=== PATIENT | female | born 1955 | race Caucasian/White ===

== ENCOUNTER 2016-10-31 10:33 | Emergency (ER) | payer OTHER ==
[~2016-10-31] VITALS: Ht 157.5 cm; Wt 63.5 kg
[~2016-10-31 10:33] MED LIST: ACIPHEX20 M1 PO; ASPI-COR81 M1 PO; ASPIRIN81 M1 PO; ASPIRIN81 M2 PO; BLEPHAMIDE OP; CLINDAMYCIN300 M1 PO; CLONIDINE0.1 MG PO; COLACE100 M1 PO; COLACE100 MG PO; CONCOR; ENALAPRIL MALEA10 M1 PO; ERYTHROMYCIN S PO; FAMOTIDINE40 MG/5 ML PO; GABAPENTIN300 M1 PO; GLUCOPHAGE1000 MG PO; GLUCOPHAGE500 MG PO; GLUCOTROL10 MG PO; GLUCOTROL5 MG PO; GLYBURIDE PO; HYDROCODONE BIT1 T55 PO; LACTINEX1 TAB.CHEW PO; LANTUS INS100 UNITS/ SUBQ; LANTUS100 U/ML; LIPITOR10 MG PO; LIPITOR20 MG PO; LISINOPRIL10 M1 PO; LOSARTAN POTASS1 TA2 PO; MACROBID100 M1 PO; METFO PO; METFORMIN500 MG; NORCO 325 MG-51 TAB PO; NORCO 5/325 MG1 TAB PO; NORVASC2.5 MG PO; NOVOLOG100 U/ML; NOVOLOG100 U/ML SUBQ; PAIN PO; PEPCID20 MG PO; PHENERGAN25 M3 PO; PROTONIX40 MG PO; RANITIDINE150 MG PO; REGLAN10 MG PO; SIMVASTATIN20 M1 PO; SODIUM CHLORIDE1 G2 PO; ZANTAC150 MG PO; ZESTRIL20 MG PO; ZOCOR20 MG PO; ZOCOR80 MG PO; ZOFRAN ODT4 MG PO; ZOFRAN4 M1 PO; [UNRECOGNIZED DRUG - OTHER] PO; xarelto PO
--- NOTE | 2016-10-31 10:36 | NUR ---
PT WHEELCHAIR ASSISTED TO BED 3 AT THIS TIME.
[2016-10-31 10:38] VITALS: BP 175/75
--- NOTE | 2016-10-31 10:38 | NUR ---
61F BIB C/O TAKING THE WRONG INSULIN MEDICATION AT 0930 TODAY; PT STATES ACCIDENTLY GAVE HERSELF 14 UNITS OF NOVOLIN, INSTEAD OF 14 UNITES OF LANTUS; PT STATES PRESCRIBED TO TAKE 6 UNITS OF NOVOLIN. PT STATES ACCIDENTLY SWITCHED THE BOTTLES; PT TOOK 1 CAN OF COKE PRIOR TO ARRIVAL; A&OX4, BL LUNG SOUNDS CLEAR, RR EVEN/UNLABORED; PT C/O OF 1 EPISODE OF DIARRHEA PRIOR TO ARRIVAL; ABDOMEN SOFT, NON-TENDER, ACTIVE BOWEL SOUNDS X 4 QUADRANTS; SKIN IS WARM/DRY/INTACT AT THIS TIME. PT PLACED IN GOWN & ON MONITOR, RESTING IN BED W/ HOB ELEVATED AND IN LOWEST POSITION; POSITIONED FOR COMFORT; ER MD MADE AWARE OF STATUS. WILL CONTINUE TO MONITOR.
[2016-10-31] MEDS ORDERED: NACL 0.9% 1,000 ML IV SCH (10:46)
[2016-10-31] MEDS ORDERED: ONDANSETRON 4 MG/2 ML VIAL IVP ONE (10:50)
--- NOTE | 2016-10-31 11:33 | NUR ---
WARM BLANKET PROVIDED TO PT FOR COMFOT.
--- NOTE | 2016-10-31 12:35 | NUR ---
PT AMBULATED TO THE RESTROOM AT THIS TIME.
--- NOTE | 2016-10-31 13:26 | NUR ---
Patient appears to be resting comfortably in bed. Vital Signs within normal limits. Respirations even and unlabored. FAMILY AT BEDSIDE. WILL CONTINUE TO MONITOR.
--- NOTE | 2016-10-31 13:35 | NUR ---
APPLE JUICE PROVIDED TO PT PER PT'S REQUEST; ER MD DR. COOK NOTIFIED; WILL CONTINUE TO MONITOR.
[2016-10-31] MEDS ORDERED: cefTRIAXone 1,000 MG VIAL ONE (15:50)
--- NOTE | 2016-10-31 16:40 | NUR ---
IV removed, catheter intact and site benign. Applied folded 4x4 gauze and tape to stop bleeding. PT TOLERATED PROCEDURE WELL.
[2016-10-31 16:45] VITALS: BP 160/78
--- NOTE | 2016-10-31 16:45 | NUR ---
Patient discharged with BP 160/78; PT STATES HX HTN, TAKES MEDICATION; DENIES HEADACHE OR BLURRY VISION AT THIS TIME; ER MD DR. COOK NOTIFED. Written and verbal after care instructions given and explained.Patient verbalized understanding. Wheel Chair Assisted with to car. All questions addressed prior to discharge. Advised to follow up with PMD.
[2017-04-13] MEDS ORDERED: LANTUS INS100 UNITS/ SUBQ (08:57)
[2017-04-13] MEDS ORDERED: MACROBID100 M1 PO (08:57)
[2017-04-13] MEDS ORDERED: IPRATROPIUM BROM3 M1 IH (08:57)
[2017-04-13] MEDS ORDERED: BLOOD GLUCOSE1 EACH FS (08:57)
[2017-04-13] MEDS ORDERED: ATORVASTATIN CA20 MG PO (08:57)
[2017-04-13] MEDS ORDERED: LOPRESSOR25 MG PO (08:57)
[2017-04-13] MEDS ORDERED: FLORASTOR250 MG PO (08:57)
[2017-04-13] MEDS ORDERED: ASPIRIN ADULT L81 M2 PO (08:57)
[2017-04-13] MEDS ORDERED: HUMALOG SL100 UNITS/ SUBQ (08:57)
[2017-04-13] MEDS ORDERED: PANTOPRAZOLE SO40 MG PO (08:57)
[2017-04-13] MEDS ORDERED: ZOFRAN4 M1 PO (14:34)
== END 2016-10-31 16:45 | disposition home or self-care (01) ==
LOC: MED 10:33
DX: T38.3X1A Poisoning by insulin and oral hypoglycemic [antidiabetic] drugs, accidental (unintentional), initial encounter (principal); E11.649 Type 2 diabetes mellitus with hypoglycemia without coma; N39.0 Urinary tract infection, site not specified; I10 Essential (primary) hypertension; J45.909 Unspecified asthma, uncomplicated; E78.00 Pure hypercholesterolemia, unspecified; Z88.5 Allergy status to narcotic agent; Z88.0 Allergy status to penicillin; Z91.013 Allergy to seafood; Z91.018 Allergy to other foods; Z88.1 Allergy status to other antibiotic agents; Z79.4 Long term (current) use of insulin; Y92.89 Other specified places as the place of occurrence of the external cause; Z79.899 Other long term (current) drug therapy
CPT/HCPCS: 36415; 80053; 81001; 82948; 85025; 87086; 87186; 93005; 96361; 96365; 96375; 99285; J0696; J2405; J7030

== ENCOUNTER 2017-04-11 01:50 | Inpatient (IN) | payer OTHER ==
[~2017-04-11] VITALS: Ht 160 cm; Wt 73.0 kg
[~2017-04-11 01:50] MED LIST changes: -ACIPHEX20 M1 PO; +AMLO2.5T PO; -ASPI-COR81 M1 PO; -ASPIRIN81 M1 PO; -ASPIRIN81 M2 PO; +ATOR10TA PO; -BLEPHAMIDE OP; -CLINDAMYCIN300 M1 PO; -CLONIDINE0.1 MG PO; -COLACE100 M1 PO; -COLACE100 MG PO; -CONCOR; -ENALAPRIL MALEA10 M1 PO; -ERYTHROMYCIN S PO; +FAMO-90 PO; -FAMOTIDINE40 MG/5 ML PO; -GABAPENTIN300 M1 PO; +GLIP10TA3 PO; -GLUCOPHAGE1000 MG PO; -GLUCOPHAGE500 MG PO; -GLUCOTROL10 MG PO; -GLUCOTROL5 MG PO; -GLYBURIDE PO; -HYDROCODONE BIT1 T55 PO; +LAC PO; -LACTINEX1 TAB.CHEW PO; -LANTUS INS100 UNITS/ SUBQ; +LANTUS SUBQ; -LANTUS100 U/ML; -LIPITOR10 MG PO; -LIPITOR20 MG PO; +LISI-420 PO; -LISINOPRIL10 M1 PO; -LOSARTAN POTASS1 TA2 PO; -MACROBID100 M1 PO; +METF1000 PO; -METFO PO; -METFORMIN500 MG; +NITR100C7 PO; -NORCO 325 MG-51 TAB PO; -NORCO 5/325 MG1 TAB PO; -NORVASC2.5 MG PO; -NOVOLOG100 U/ML; -NOVOLOG100 U/ML SUBQ; -PAIN PO; -PEPCID20 MG PO; -PHENERGAN25 M3 PO; -PROTONIX40 MG PO; -RANITIDINE150 MG PO; -REGLAN10 MG PO; -SIMVASTATIN20 M1 PO; -SODIUM CHLORIDE1 G2 PO; -ZANTAC150 MG PO; -ZESTRIL20 MG PO; -ZOCOR20 MG PO; -ZOCOR80 MG PO; -ZOFRAN ODT4 MG PO; -ZOFRAN4 M1 PO; -[UNRECOGNIZED DRUG - OTHER] PO; -xarelto PO
[2017-04-11 01:53] VITALS: BP 147/77
[2017-04-11 03:10] LABS: BASOPHILS # (AUTO) 0.1 K/uL (0.00-0.22); BASOPHILS % (AUTO) 0.7 % (0.0-2.0); EOSINOPHILS # (AUTO) 0.4 K/uL (0-0.4); EOSINOPHILS % (AUTO) 3.1 % (0.0-4.0); HEMATOCRIT 32.5 % (36-48); HEMOGLOBIN 10.1 g/dL (12.0-16.0); LYMPHOCYTES # (AUTO) 2.3 K/uL (2.5-16.5); LYMPHOCYTES % (AUTO) 20.2 % (20.5-51.1); MEAN CORPUSCULAR HEMOGLOBIN 25 pg (27-31); MEAN CORPUSCULAR HGB CONC 31 g/dL (33-37); MEAN CORPUSCULAR VOLUME 79 fL (80-94); MONOCYTES % (AUTO) 8.5 % (1.7-9.3); NEUTROPHILS # (AUTO) 7.6 K/uL (1.8-7.7); NEUTROPHILS % (AUTO) 67.5 % (42.2-75.2); PLATELET COUNT (AUTO) 411 K/uL (140-450); RED BLOOD CELL COUNT(AUTO) 4.11 MIL/uL (4.20-5.40); RED CELL DISTRIBUTION WIDTH 14.4 % (11.6-13.7); WHITE BLOOD COUNT (AUTO) 11.4 K/uL (4.8-10.8)
[2017-04-11 03:24] LABS: ALBUMIN 3.2 g/dL (3.4-5.0); ANION GAP 12.2 (8-16); CALCIUM 8.7 mg/dL (8.5-10.1); CARBON DIOXIDE 26.4 mmol/L (21-32); CREATININE 1.2 mg/dL (0.6-1.3); POTASSIUM 4.6 mmol/L (3.5-5.1); TOTAL BILIRUBIN 0.2 mg/dL (0.0-1.0); TOTAL PROTEIN, SERUM 7.8 g/dL (6.4-8.2)
[2017-04-11 03:28] LABS: INR 0.9 (0.8-1.2); PARTIAL THROMBOPLASTIN TIME 26.6 secs (22-35.6); PROTHROMBIN TIME 9.3 secs (10.8-13.4)
[2017-04-11] MEDS ORDERED: ACETAMINOPHEN 325 MG TAB PO PRN (04:30)
[2017-04-11] MEDS ORDERED: HYDROcodone/APAP 7.5/325 MG 1 TAB PO PRN (04:30)
[2017-04-11] MEDS ORDERED: DOCUSATE SODIUM 100 MG GELCAP PO PRN (04:30)
[2017-04-11] MEDS ORDERED: ONDANSETRON 4 MG/2 ML VIAL IM/IVP PRN (04:30)
[2017-04-11 05:01] LABS: APPEARANCE,URINE CLEAR (CLEAR); BILIRUBIN,URINE NEGATIVE (NEGATIVE); BLOOD, URINE TRACE-I (NEGATIVE); COLOR,URINE YELLOW (YELLOW); LEUKOCYTE ESTERASE ,URINE 1+ (NEGATIVE); NITRITE, URINE NEGATIVE (NEGATIVE); PH,URINE 5.5 (5.0-9.0); PROTEIN,URINE 1+ (NEGATIVE); UGLUCOSE 1+ (NEGATIVE); UROBILINOGEN,URINE 0.2 EU/dL (0.2 - 1)
[2017-04-11 05:10] LABS: CHOL/HDL RATIO 2.9 (1-4.5); FREE T4 (FREE THYROXINE) 0.97 ng/dL (0.76-1.46); MAGNESIUM 2.2 mg/dL (1.8-2.4); PHOSPHORUS 3.9 mg/dL (2.5-4.9); THYROID STIMULATING HORMONE 9.99 uIU/mL (0.34-3.74)
[2017-04-11 05:12] LABS: BACTERIA,URINE FEW /HPF (None Seen); SQUAMOUS EPITHELIAL CELL,UR None Seen /LPF (0-3 (FEW))
[2017-04-11] MEDS: NACL 0.9% 1,000 ML IV SCH ×3 (05:50→23:57)
[2017-04-11 08:00] VITALS: BP 132/63
[2017-04-11] MEDS: ATORVASTATIN 20 MG TAB PO SCH (08:12)
[2017-04-11] MEDS: ECOTRIN 81 MG TABEC PO SCH (08:12)
[2017-04-11] MEDS: METOPROLOL 25 MG TAB PO SCH ×2 (08:14→20:42)
[2017-04-11] MEDS ORDERED: DEXTROSE 50% 50 ML SYR IVP PRN (08:55)
[2017-04-11] MEDS ORDERED: METOPROLOL 25 MG TAB PO ONE (09:00)
[2017-04-11] MEDS ORDERED: ALBUTEROL SULFATE/IPRATROPIU 3 ML SOL IH PRN (10:55)
[2017-04-11] MEDS ORDERED: FERRIC GLUCONATE 125 MG in NACL 0.9% 100 ML IV SCH (11:00)
[2017-04-11] MEDS: BLOOD GLUCOSE MONITORING 1 DEV DEV FS SCH ×3 (11:28→20:15)
[2017-04-11] MEDS: INSULIN LISPRO SLIDING SCALE 100 UNITS/ML VIAL SUBQ PRN ×3 (11:32→20:51)
[2017-04-11 12:00] VITALS: BP 140/67
[2017-04-11] MEDS ORDERED: ALBUTEROL SULFATE/IPRATROPIU 3 ML SOL IH SCH (13:00)
[2017-04-11 16:00] VITALS: BP 138/66
[2017-04-11] MEDS: metFORMIN 500 MG TAB PO SCH (17:07)
[2017-04-11 20:00] VITALS: BP 159/68
[2017-04-12] VITALS: BP 112/48
[2017-04-12 04:00] VITALS: BP 136/54
[2017-04-12] MEDS: PANTOPRAZOLE 40 MG TABEC PO SCH (05:47)
[2017-04-12 06:43] LABS: BASOPHILS # (AUTO) 0.1 K/uL (0.00-0.22); EOSINOPHILS # (AUTO) 0.4 K/uL (0-0.4); EOSINOPHILS % (AUTO) 3.9 % (0.0-4.0); HEMATOCRIT 32.8 % (36-48); HEMOGLOBIN 10.3 g/dL (12.0-16.0); LYMPHOCYTES # (AUTO) 2.7 K/uL (2.5-16.5); LYMPHOCYTES % (AUTO) 25.7 % (20.5-51.1); MEAN CORPUSCULAR HEMOGLOBIN 25 pg (27-31); MEAN CORPUSCULAR HGB CONC 31 g/dL (33-37); MEAN CORPUSCULAR VOLUME 79 fL (80-94); MONOCYTES # (AUTO) 0.8 K/uL (0.8-1.0); MONOCYTES % (AUTO) 7.4 % (1.7-9.3); NEUTROPHILS # (AUTO) 6.5 K/uL (1.8-7.7); PLATELET COUNT (AUTO) 439 K/uL (140-450); RED BLOOD CELL COUNT(AUTO) 4.18 MIL/uL (4.20-5.40); RED CELL DISTRIBUTION WIDTH 14.2 % (11.6-13.7); WHITE BLOOD COUNT (AUTO) 10.5 K/uL (4.8-10.8)
[2017-04-12 06:55] LABS: ANION GAP 9.9 (8-16); CALCIUM 8.1 mg/dL (8.5-10.1); CARBON DIOXIDE 26.4 mmol/L (21-32); POTASSIUM 4.3 mmol/L (3.5-5.1)
[2017-04-12] MEDS: BLOOD GLUCOSE MONITORING 1 DEV DEV FS SCH ×4 (07:02→20:38)
[2017-04-12 08:00] VITALS: BP 147/60
[2017-04-12] MEDS: ATORVASTATIN 20 MG TAB PO SCH (08:15)
[2017-04-12] MEDS: LISINOPRIL 20 MG TAB PO SCH (08:16)
[2017-04-12] MEDS: ECOTRIN 81 MG TABEC PO SCH (08:16)
[2017-04-12] MEDS: amLODIPine 5 MG TAB PO SCH (08:16)
[2017-04-12] MEDS: METOPROLOL 25 MG TAB PO SCH ×2 (08:16→20:33)
[2017-04-12] MEDS: metFORMIN 500 MG TAB PO SCH ×2 (08:16→17:11)
[2017-04-12] MEDS: INSULIN DETEMIR 100 UNITS/ML 10 ML VIAL SUBQ SCH (08:24)
[2017-04-12 08:49] LABS: FOLIC ACID 11.6 ng/mL (>3.0)
[2017-04-12] MEDS ORDERED: fentaNYL 0.05 MG/ML VIAL ONE (12:49)
[2017-04-12] MEDS ORDERED: MIDAZOLAM 2 MG/2 ML VIAL ONE (12:50)
[2017-04-12] MEDS ORDERED: diphenhydrAMINE 50 MG/ML VIAL ONE (12:50)
[2017-04-12] MEDS ORDERED: fentaNYL 0.05 MG/ML VIAL IVP ONE (13:35)
[2017-04-12] MEDS ORDERED: MIDAZOLAM 2 MG/2 ML VIAL IVP ONE (13:35)
[2017-04-12 16:00] VITALS: BP 151/67
[2017-04-12] MEDS: INSULIN LISPRO SLIDING SCALE 100 UNITS/ML VIAL SUBQ PRN ×2 (16:35→20:38)
[2017-04-12 20:00] VITALS: BP 152/64
[2017-04-13] VITALS: BP 130/63
[2017-04-13 04:00] VITALS: BP 141/70
[2017-04-13] MEDS: PANTOPRAZOLE 40 MG TABEC PO SCH (05:44)
[2017-04-13] MEDS: NACL 0.9% 1,000 ML IV SCH (06:26)
[2017-04-13] MEDS: BLOOD GLUCOSE MONITORING 1 DEV DEV FS SCH ×2 (06:33→12:08)
[2017-04-13 06:36] LABS: BASOPHILS # (AUTO) 0.1 K/uL (0.00-0.22); BASOPHILS % (AUTO) 1.1 % (0.0-2.0); EOSINOPHILS # (AUTO) 0.3 K/uL (0-0.4); EOSINOPHILS % (AUTO) 2.8 % (0.0-4.0); HEMATOCRIT 31.7 % (36-48); LYMPHOCYTES # (AUTO) 2.3 K/uL (2.5-16.5); LYMPHOCYTES % (AUTO) 21.7 % (20.5-51.1); MEAN CORPUSCULAR HEMOGLOBIN 25 pg (27-31); MEAN CORPUSCULAR HGB CONC 32 g/dL (33-37); MEAN CORPUSCULAR VOLUME 78 fL (80-94); MONOCYTES # (AUTO) 0.6 K/uL (0.8-1.0); MONOCYTES % (AUTO) 6.2 % (1.7-9.3); NEUTROPHILS # (AUTO) 7.2 K/uL (1.8-7.7); NEUTROPHILS % (AUTO) 68.2 % (42.2-75.2); PLATELET COUNT (AUTO) 418 K/uL (140-450); RED BLOOD CELL COUNT(AUTO) 4.05 MIL/uL (4.20-5.40); RED CELL DISTRIBUTION WIDTH 14.1 % (11.6-13.7); WHITE BLOOD COUNT (AUTO) 10.5 K/uL (4.8-10.8)
[2017-04-13 07:23] LABS: ANION GAP 10.9 (8-16); CALCIUM 7.8 mg/dL (8.5-10.1); CARBON DIOXIDE 24.5 mmol/L (21-32); POTASSIUM 4.4 mmol/L (3.5-5.1)
[2017-04-13 07:28] LABS: PHOSPHORUS 4.2 mg/dL (2.5-4.9)
[2017-04-13 08:00] VITALS: BP 150/63
[2017-04-13] MEDS: ATORVASTATIN 20 MG TAB PO SCH (08:34)
[2017-04-13] MEDS: metFORMIN 500 MG TAB PO SCH (08:34)
[2017-04-13] MEDS: amLODIPine 5 MG TAB PO SCH (08:34)
[2017-04-13] MEDS: LISINOPRIL 20 MG TAB PO SCH (08:35)
[2017-04-13] MEDS: ECOTRIN 81 MG TABEC PO SCH (08:35)
[2017-04-13] MEDS: METOPROLOL 25 MG TAB PO SCH (08:36)
[2017-04-13] MEDS: INSULIN DETEMIR 100 UNITS/ML 10 ML VIAL SUBQ SCH (08:49)
[2017-04-13] MEDS ORDERED: LANTUS SUBQ (08:57)
[2017-04-13] MEDS ORDERED: PANT40EC28 PO (08:57)
[2017-04-13] MEDS ORDERED: ASPI81TA28 PO (08:57)
[2017-04-13] MEDS ORDERED: NITR100C7 PO (08:57)
[2017-04-13] MEDS ORDERED: BLOO1STR10 FS (08:57)
[2017-04-13] MEDS ORDERED: IPRA3AMP IH (08:57)
[2017-04-13] MEDS ORDERED: ATOR20TA40 PO (08:57)
[2017-04-13] MEDS ORDERED: SACC250C4 PO (08:57)
[2017-04-13] MEDS ORDERED: HUMSLIDE SUBQ (08:57)
[2017-04-13] MEDS ORDERED: METO25TA PO (08:57)
[2017-04-13 12:00] VITALS: BP 140/62
[2017-04-13] MEDS: INSULIN LISPRO SLIDING SCALE 100 UNITS/ML VIAL SUBQ PRN (12:22)
[2017-04-13] MEDS ORDERED: ONDA4TAB PO (14:34)
== END 2017-04-13 16:00 | disposition home or self-care (01) | DRG 243 ==
LOC: MED 01:50 → MTU 04:30
PROVIDERS: ADMIT Student in an Organized Health Care Education/Training Program; ATTEND Student in an Organized Health Care Education/Training Program
PROC: 0DB98ZX Excision of Duodenum, Via Natural or Artificial Opening Endoscopic, Diagnostic (ICD-10-PCS; principal; 2017-04-12 13:00)
DX: K21.9 Gastro-esophageal reflux disease without esophagitis (principal); N17.0 Acute kidney failure with tubular necrosis; E11.43 Type 2 diabetes mellitus with diabetic autonomic (poly)neuropathy; K31.84 Gastroparesis; E11.65 Type 2 diabetes mellitus with hyperglycemia; D68.59 Other primary thrombophilia; E11.51 Type 2 diabetes mellitus with diabetic peripheral angiopathy without gangrene; M94.0 Chondrocostal junction syndrome [Tietze]; E44.1 Mild protein-calorie malnutrition; I10 Essential (primary) hypertension; N39.0 Urinary tract infection, site not specified; I25.10 Atherosclerotic heart disease of native coronary artery without angina pectoris; E78.5 Hyperlipidemia, unspecified; K59.00 Constipation, unspecified; E66.9 Obesity, unspecified; Z53.29 Procedure and treatment not carried out because of patient's decision for other reasons; D64.9 Anemia, unspecified; E02 Subclinical iodine-deficiency hypothyroidism; Z88.0 Allergy status to penicillin; Z88.8 Allergy status to other drugs, medicaments and biological substances; Z88.6 Allergy status to analgesic agent; Z91.041 Radiographic dye allergy status; Z90.49 Acquired absence of other specified parts of digestive tract; Z98.51 Tubal ligation status; Z79.899 Other long term (current) drug therapy; Z79.84 Long term (current) use of oral hypoglycemic drugs; Z88.1 Allergy status to other antibiotic agents; Z68.28 Body mass index [BMI] 28.0-28.9, adult; D50.9 Iron deficiency anemia, unspecified; Z79.4 Long term (current) use of insulin
CPT/HCPCS: 36415; 71010; 80048; 80053; 81001; 82150; 82272; 82607; 82728; 82746; 82948; 83036; 83540; 83690; 83735; 83880; 84100; 84436; 84439; 84443; 84479; 84484; 85025; 85045; 85610; 85730; 87077; 87081; 87086; 87186; 93005; 93925; 93970; J0696; J1200; J1815; J2250; J2916; J3010; J7030; J7060; Q0092

== ENCOUNTER 2018-03-03 12:37 | Emergency (ER) | payer OTHER ==
[~2018-03-03] VITALS: Ht 152.4 cm; Wt 70.8 kg
[~2018-03-03 12:37] MED LIST changes: +ASPI-1173 PO; -ATOR10TA PO; +ATOR20TA40 PO; +BLOO1STR56 FS; -FAMO-90 PO; +FLOR250 PO; -GLIP10TA3 PO; +HUMSLIDE SUBQ; +IPRA3AMP IH; -LAC PO; +METO25TA PO; +ONDA4TAB PO; +PANT40EC28 PO
[2018-03-03 13:11] VITALS: BP 164/70
--- NOTE | 2018-03-03 13:18 | NUR ---
PT SENT TO ER LOBBY TO WAIT FOR ED.
--- NOTE | 2018-03-03 13:19 | NUR ---
PT SENT TO X-RAY VIA W/C.
--- NOTE | 2018-03-03 14:07 | NUR ---
PT AMBULATED TO BED 3.
--- NOTE | 2018-03-03 14:10 | NUR ---
PT. CAME INTO THE ED W/ C/O EPIGASTRIC PAIN X 2 WEEKS AND SOB AND RASH. PT. STATES " EVERYTIME I TAKE MY BLOOD PRESSURE MEDICATION I GET A RASH AND I SWELL UP BUT THE PREVIOUS MEDICATION I WAS GIVEN IT GETS ME WORSE, SO I TOOK MY LISINOPRIL AGAIN YESTERDAY AND STARTED THAT UP AGAIN. ALSO, I HAVE THIS PAIN IN THE MIDDLE OF MY STOMACH IT FEELS LIKE BURNING AND THAT I HAVE SOMETHING COMING UP AND DOWN MY THOAT LIKE ACID AND MAKES IT DIFFICULT TO SWALLOW OR EAT FOOD". PT. AAOX4, RR EVEN AND UNLABORED, DENIES CP, PT. STATES SOB, 04/28 EPIGASTRIC PAIN THAT IS NON RADIATING AND DESCRIBED BURNING. ER. MD NOTIFIED. WILL CONTINUE TO MONITOR. AT BEDSIDE.
--- NOTE | 2018-03-03 15:03 | NUR ---
Patient being evaluated by physician at bedside.
[2018-03-03] MEDS ORDERED: NACL 0.9% 1,000 ML IV SCH (15:18)
[2018-03-03] MEDS ORDERED: FAMOTIDINE 20 MG/2 ML VIAL IVP ONE (15:20)
[2018-03-03] MEDS ORDERED: diphenhydrAMINE 50 MG/ML VIAL IVP ONE (15:20)
[2018-03-03 15:59] LABS: BILIRUBIN,URINE NEGATIVE (NEGATIVE); BLOOD, URINE TRACE-I (NEGATIVE); COLOR,URINE YELLOW (YELLOW); LEUKOCYTE ESTERASE ,URINE 2+ (NEGATIVE); NITRITE, URINE NEGATIVE (NEGATIVE); PH,URINE 6.5 (5.0-9.0); UGLUCOSE 1+ (NEGATIVE)
[2018-03-03 15:59] LABS: BASOPHILS # (AUTO) 0.1 K/uL (0.00-0.22); BASOPHILS % (AUTO) 0.5 % (0.0-2.0); EOSINOPHILS # (AUTO) 0.3 K/uL (0-0.4); EOSINOPHILS % (AUTO) 2.9 % (0.0-4.0); HEMATOCRIT 30.9 % (36-48); HEMOGLOBIN 10.1 g/dL (12.0-16.0); LYMPHOCYTES # (AUTO) 2.5 K/uL (2.5-16.5); LYMPHOCYTES % (AUTO) 24.7 % (20.5-51.1); MEAN CORPUSCULAR HEMOGLOBIN 23 pg (27-31); MEAN CORPUSCULAR HGB CONC 33 g/dL (33-37); MEAN CORPUSCULAR VOLUME 70.6 fL (80-94); MONOCYTES # (AUTO) 0.8 K/uL (0.8-1.0); MONOCYTES % (AUTO) 7.8 % (1.7-9.3); NEUTROPHILS # (AUTO) 6.6 K/uL (1.8-7.7); NEUTROPHILS % (AUTO) 64.1 % (42.2-75.2); PLATELET COUNT (AUTO) 470 K/uL (140-450); RED BLOOD CELL COUNT(AUTO) 4.38 MIL/uL (4.20-5.40); RED CELL DISTRIBUTION WIDTH 16.8 % (11.6-13.7); WHITE BLOOD COUNT (AUTO) 10.2 K/uL (4.8-10.8)
[2018-03-03 16:18] LABS: ALBUMIN 3.3 g/dL (3.4-5.0); ANION GAP 12.5 (8-16); CARBON DIOXIDE 27.7 mmol/L (21-32); CREATININE 1.5 mg/dL (0.6-1.3); POTASSIUM 5.2 mmol/L (3.5-5.1); TOTAL BILIRUBIN 0.3 mg/dL (0.0-1.0)
--- NOTE | 2018-03-03 16:30 | NUR ---
PT. RESTING COMFORTABLY IN BED, RR EVEN AND UNLABORED. BED IN LOWEST POSITION, AT BEDSIDE. WILL CONTINUE TO MONITOR.
--- NOTE | 2018-03-03 16:48 | NUR ---
PT. PROVIDED WITH A PUDDING . NO FURTHER COMPLAINTS AT THIS TIME
[2018-03-03 17:06] LABS: APPEARANCE,URINE HAZY (CLEAR)
[2018-03-03 17:39] LABS: RBC,URINE 0-5 (RARE) /HPF (0-5); WBC,URINE 20-60 /HPF (0-5)
--- NOTE | 2018-03-03 18:00 | NUR ---
PT. RESTING IN BED , RR EVEN AND UNLABORED. NO FURTHER COMPLAINTS AT THIS TIME . WILL CONTINUE TO MONITOR.
[2018-03-03 18:56] VITALS: BP 160/72
== END 2018-03-03 18:56 | disposition home or self-care (01) ==
LOC: MED 12:37
DX: K21.9 Gastro-esophageal reflux disease without esophagitis (principal); F41.9 Anxiety disorder, unspecified; L30.9 Dermatitis, unspecified; J45.909 Unspecified asthma, uncomplicated; E11.9 Type 2 diabetes mellitus without complications; I10 Essential (primary) hypertension; E03.9 Hypothyroidism, unspecified; E78.5 Hyperlipidemia, unspecified; D64.9 Anemia, unspecified; Z90.49 Acquired absence of other specified parts of digestive tract; Z79.82 Long term (current) use of aspirin; Z79.84 Long term (current) use of oral hypoglycemic drugs; Z79.899 Other long term (current) drug therapy; Z88.0 Allergy status to penicillin; Z88.1 Allergy status to other antibiotic agents; Z88.8 Allergy status to other drugs, medicaments and biological substances; Z91.041 Radiographic dye allergy status
CPT/HCPCS: 36415; 71045; 80053; 81001; 83690; 85025; 87086; 87186; 96361; 96374; 96375; 99285; J1200; J3490; J7030

== ENCOUNTER 2018-04-26 05:20 | Inpatient (IN) | payer OTHER ==
[~2018-04-26] VITALS: Ht 154.9 cm; Wt 77.6 kg
[~2018-04-26 05:20] MED LIST changes: +ALBU3SOL83 IH; -IPRA3AMP IH
[2018-04-26 05:32] VITALS: BP 168/77
--- NOTE | 2018-04-26 05:39 | NUR ---
PT TO ER BED 8 VIA W/C
--- NOTE | 2018-04-26 05:45 | NUR ---
PATIENT PRESENTS TO ED WITH ABD PAIN, BILAT LEG PAIN CONSTIPATION X 3-4 DAYS PT DENIES N/V/D; SKIN IS PINK/WARM/DRY; AAOX4 WITH EVEN AND STEADY GAIT; LUNGS CLEAR BL; HR EVEN AND REGULAR; PATIENT STATES PAIN OF 10/10 AT THIS TIME; VSS; PATIENT POSITIONED FOR COMFORT; HOB ELEVATED; BEDRAILS UP X2; BED DOWN. ER MADE AWARE OF PT STATUS. MED HX: DM/HTN/ASTHMA Addendum: 04/26/18 at 1007 by [email or web address] HX: HYSTERECTOMY, CHOLECYSTECTOMY
[2018-04-26] MEDS ORDERED: NACL 0.9% 1,000 ML IV ONE ×2 (06:03→10:45)
[2018-04-26] MEDS ORDERED: ONDANSETRON 4 MG/2 ML VIAL IVP ONE (06:05)
[2018-04-26] MEDS ORDERED: KETOROLAC 30 MG/ML VIAL IVP ONE (06:05)
[2018-04-26 06:14] LABS: BASOPHILS # (AUTO) 0.1 K/uL (0.00-0.22); BASOPHILS % (AUTO) 1.1 % (0.0-2.0); EOSINOPHILS # (AUTO) 0.3 K/uL (0-0.4); EOSINOPHILS % (AUTO) 2.6 % (0.0-4.0); HEMATOCRIT 30.2 % (36-48); HEMOGLOBIN 9.4 g/dL (12.0-16.0); LYMPHOCYTES # (AUTO) 2.3 K/uL (2.5-16.5); LYMPHOCYTES % (AUTO) 19.2 % (20.5-51.1); MEAN CORPUSCULAR HEMOGLOBIN 23 pg (27-31); MEAN CORPUSCULAR HGB CONC 31 g/dL (33-37); MEAN CORPUSCULAR VOLUME 72.7 fL (80-94); MONOCYTES # (AUTO) 0.8 K/uL (0.8-1.0); MONOCYTES % (AUTO) 6.8 % (1.7-9.3); NEUTROPHILS # (AUTO) 8.5 K/uL (1.8-7.7); NEUTROPHILS % (AUTO) 70.3 % (42.2-75.2); PLATELET COUNT (AUTO) 443 K/uL (140-450); RED BLOOD CELL COUNT(AUTO) 4.15 MIL/uL (4.20-5.40); WHITE BLOOD COUNT (AUTO) 12.2 K/uL (4.8-10.8)
--- NOTE | 2018-04-26 06:26 | NUR ---
PT TAKEN TO CT
[2018-04-26 06:31] LABS: ALBUMIN 3.4 g/dL (3.4-5.0); ANION GAP 10.7 (8-16); CARBON DIOXIDE 25.3 mmol/L (21-32); CREATININE 1.4 mg/dL (0.6-1.3); TOTAL BILIRUBIN 0.1 mg/dL (0.0-1.0)
--- NOTE | 2018-04-26 06:42 | NUR ---
PT RETURN FROM CT
[2018-04-26 09:06] LABS: BILIRUBIN,URINE NEGATIVE (NEGATIVE); BLOOD, URINE TRACE-L (NEGATIVE); LEUKOCYTE ESTERASE ,URINE SMALL (NEGATIVE); NITRITE, URINE NEGATIVE (NEGATIVE); PH,URINE 5.5 (5.0-9.0); UGLUCOSE 2+ (NEGATIVE)
[2018-04-26 09:07] LABS: APPEARANCE,URINE CLEAR (CLEAR); COLOR,URINE YELLOW (YELLOW)
[2018-04-26 09:26] LABS: RBC,URINE 0-5 (RARE) /HPF (0-5)
[2018-04-26] MEDS ORDERED: LEVOFLOXACIN 500 MG/D5W PREMIX 100 ML IV ONE (10:45)
[2018-04-26] MEDS ORDERED: INSULIN REGULAR, HUMAN 100 UNIT/ML VIAL IVP ONE (10:45)
--- NOTE | 2018-04-26 11:46 | NUR ---
LAB AT BEDSIDE
--- NOTE | 2018-04-26 11:53 | NUR ---
[facility] CALLED WITH AUTHORIZATION FOR ADMIT TO OBSERVATION.
--- NOTE | 2018-04-26 11:55 | NUR ---
spoke to edvin from admitting, insurance candis [employer], to be admitted thru On-call
--- NOTE | 2018-04-26 11:56 | NUR ---
ACCU CHECK 63 ,NOTIFIED DR LOW. GAVE 2 BOTTALS OF JUICES.
[2018-04-26] MEDS ORDERED: LORazepam 2 MG/ML VIAL IM/IVP PRN (12:10)
[2018-04-26] MEDS ORDERED: ACETAMINOPHEN 325 MG TAB PO PRN (12:10)
[2018-04-26] MEDS ORDERED: ZOLPIDEM 5 MG TAB PO PRN (12:10)
[2018-04-26] MEDS ORDERED: DOCUSATE SODIUM 100 MG GELCAP PO PRN (12:10)
[2018-04-26 13:25] VITALS: BP 165/70
--- NOTE | 2018-04-26 13:25 | NUR ---
Patient will be admitted to care of DR LIMA. Admited to TELE. Will go to room 108A. Belongings list completed. Report to ANGELES HWANG .
--- NOTE | 2018-04-26 13:25 | NUR ---
RECEIVED PT FROM ER NURSE, SENAIT, VIA [facility]. PT IS AWAKE AND ALERT AND AMBULATED FROM THE GURNEY TO THE BED. SIDE RAILS ARE UP AND CALL LIGHT WITHIN REACH, BED IN LOW POSITION. SAFETY PRECAUTION INITIATED. PT HAS AN IV LINE ON THE RIGHT AC G. 20 SALINE LOCK, INTACT. VITAL SIGNS WAS TAKEN AND BP RESULT IS HIGH, 165/70. DR. FOX INFORMED OF THE BP RESULT. NO OTHER UNTOWARD SIGN AND SYMPTOM NOTED. SKIN IS INTACT. WILL CONTINUE TO MONITOR PT.
[2018-04-26] MEDS ORDERED: NON-FORMULARY ITEM (Atorvastatin Calcium 40 MG) PO SCH (13:45)
[2018-04-26] MEDS ORDERED: NON-FORMULARY ITEM (Aspirin (Aspirin EC) 81 MG) PO SCH (13:45)
[2018-04-26] MEDS ORDERED: DOCUSATE SODIUM 100 MG GELCAP PO SCH (14:00)
[2018-04-26] MEDS: NACL 0.9% 1,000 ML IV SCH (14:10)
[2018-04-26] MEDS ORDERED: DEXTROSE 50% 50 ML SYR IVP PRN (14:15)
--- NOTE | 2018-04-26 14:15 | NUR ---
ECHO IS BEING DONE TO THE PT NOW.
[2018-04-26] MEDS ORDERED: amLODIPine 5 MG TAB PO SCH (14:30)
[2018-04-26] MEDS ORDERED: LISINOPRIL 20 MG TAB PO SCH ×2 (14:35→21:00)
[2018-04-26 14:57] LABS: PROTHROMBIN TIME 8.8 secs (10.8-13.4)
[2018-04-26 15:02] LABS: BARBITURATE, URINE NEG. ng/ml (NEG <=200); BENZODIAZEPINE, URINE NEG. ng/mL (NEG <=200); CANNABINOID, URINE NEG. ng/mL (NEG <=50); COCAINE, URINE NEG. ng/mL (NEG <=300); OPIATE, URINE NEG. ng/mL (NEG <=2000); PHENCYCLIDINE SCREEN,URINE NEG. ng/mL (NEG <=25)
[2018-04-26 15:11] LABS: MAGNESIUM 2.3 mg/dL (1.8-2.4); PHOSPHORUS 3.5 mg/dL (2.5-4.9); THYROID STIMULATING HORMONE 1.46 uIU/mL (0.34-3.74)
--- NOTE | 2018-04-26 16:00 | NUR ---
PT IS AWAKE AND ON THE BEDSIDE, VITAL SIGNS TAKEN AND BP IS 156/52, NO SIGN OF DISTRESS NOTED ON THE PT. PT MADE A BOWEL MOVEMENT IN THE COMMODE AND WAS CLEANED BY ALAYNA VIERA. WILL CONTINUE TO MONITOR PT.
--- NOTE | 2018-04-26 16:40 | NUR ---
PT IS AWAKE AND MEDICATION WAS GIVEN AND PT TOLERATED IT. BLOOD GLUCOSE CHECK DONE AND RESULT IS 222, GAVE 4 UNITS OF HUMALOG. NO SIGN OF DISTRESS NOTED. WILL MONITOR PT.
[2018-04-26] MEDS: METOCLOPRAMIDE 10 MG TAB PO SCH (16:45)
[2018-04-26] MEDS: BLOOD GLUCOSE MONITORING 1 DEV DEV FS SCH ×2 (16:48→21:05)
[2018-04-26] MEDS: INSULIN LISPRO SLIDING SCALE 100 UNITS/ML VIAL SUBQ PRN ×2 (16:50→21:20)
--- NOTE | 2018-04-26 16:56 | NUR ---
ULTRASOUND OF THE VASCULAR VEIN AND ARTERY IS BEING DONE TO THE PT NOW. NO SIGN OF DISTRESS NOTED ON THE PT. WILL CONTINUE TO MONITOR.
--- NOTE | 2018-04-26 17:55 | NUR ---
ULTRASOUND OF THE VASCULAR VEIN AND ARTERY WAS FINISHED NOW.
[2018-04-26] MEDS ORDERED: GABAPENTIN 300 MG CAP PO SCH (18:30)
--- NOTE | 2018-04-26 18:45 | NUR ---
PT IS AWAKE AND TALKING TO THE FAMILY ON THE BEDSIDE, MEDICATION GIVEN AND PT TOLERATED IT. NO SIGN OF DISTRESS NOTED. WILL MONITOR PT.
--- NOTE | 2018-04-26 19:30 | NUR ---
ENDORSED PT TO LATCHER NURSE FOR CONTINUITY OF CARE. PT IS STABLE AT THIS TIME.
--- NOTE | 2018-04-26 19:31 | NUR ---
RECEIVED BEDSIDE REPORT FROM DAY SHIFT NURSE SIENNA RN, PT STABLE, NO DISTRESS NOTED, IV TO THE R AC 20G PATENT, INTACT, INFUSING NS @ 60ML/HR, INFUSING WELL, PT ON ROOM AIR, NO SOB, FAMILY AT BEDSIDE, INITIAL ASSESSMENT DONE, ALL SAFETY PRECAUTION MET, WILL CONTINUE TO MONITOR.
[2018-04-26 20:00] VITALS: BP 156/72
[2018-04-26] MEDS ORDERED: metFORMIN 500 MG TAB PO SCH (21:00)
[2018-04-26] MEDS: LISINOPRIL 20 MG TAB PO SCH (21:10)
[2018-04-26] MEDS: metFORMIN 500 MG TAB PO SCH (21:10)
--- NOTE | 2018-04-26 21:10 | NUR ---
DUE MEDICATION GIVEN, PT TOLERATED WELL, PT REFUSED INSULIN, STATED THAT HER BLOOD SUGAR USUALLY DROPS DURING THE NIGHT AND SHE DOES NOT WANT INSULIN BEFORE SHE SLEEPS, PT RESTING, NO DISTRESS NOTED, CALL LIGHT WITHIN REACH, WILL CONTINUE TO MONITOR.
[2018-04-27] VITALS: BP 138/69
[2018-04-27] MEDS: ONDANSETRON 4 MG/2 ML VIAL IM/IVP PRN (00:26)
--- NOTE | 2018-04-27 00:53 | NUR ---
0030 PT STATED FEELING NAUSEA AND DIZZINESS, ZOSYN ORDERED GIVEN, PT TOLERATED WELL, PT BP 138/69, BLOOD SUGAR TAKEN 201. NOTIFIED DR. MAHMOOD REGARDING PT COMPLAINS, STATED UNDERSTANDING, AND STATED WILL SEE PT. 0045 PT STARTED COUGHING ALOT, PT STATED SHE HAS HISTORY OF ASTHMA AND REQUESTED ASTHMA MEDICATION, NOTIFIED DR. MAHMOOD REGARDING PT STATEMENT, STATED UNDERSTANDING. PT RESTING ON BED, NO DISTRESS NOTED, COUGH HAD ALREADY STOPPED, WILL CONTINUE TO MONITOR.
[2018-04-27] MEDS: ALBUTEROL SULFATE/IPRATROPIU 3 ML SOL IH PRN (01:23)
--- NOTE | 2018-04-27 01:32 | NUR ---
PT BS ARE CLEAR, PT SAT 100% IN ROOM AIR, ASK THE DR FOR HHN TX PRN. GAVE PT ON PRN TX, SHE TOLD THE RN SHE IS COUGHING, BUT I DID NOT HEAR PT COUGH.IS CAN NOT PERFORMED AT THIS TIME, SHE S TIRED.
--- NOTE | 2018-04-27 02:08 | NUR ---
CHECKED ON PT, PT CURRENTLY SLEEPING, NO DISTRESS NOTED, CALL LIGHT WITHIN REACH, WILL CONTINUE TO MONITOR.
[2018-04-27 04:00] VITALS: BP 122/48
--- NOTE | 2018-04-27 04:10 | NUR ---
CHECKED ON PT, PT RESTING, NO DISTRESS NOTED, CALL LIGHT WITHIN REACH, WILL CONTINUE TO MONITOR.
[2018-04-27] MEDS: NACL 0.9% 1,000 ML IV SCH (04:26)
--- NOTE | 2018-04-27 04:29 | NUR ---
PT DID NOT DO ANY BM DURING SHIFT, OCCULT BLOOD WAS NOT ABLE TO BE COLLECTED, WILL ENDORSED TO DAY SHIFT NURSE.
[2018-04-27] MEDS: BLOOD GLUCOSE MONITORING 1 DEV DEV FS SCH ×4 (06:14→21:39)
[2018-04-27] MEDS: LEVOTHYROXINE 0.025 MG TAB PO SCH (06:19)
[2018-04-27] MEDS: LEVOTHYROXINE 0.1 MG TAB PO SCH (06:19)
[2018-04-27] MEDS: METOCLOPRAMIDE 10 MG TAB PO SCH ×3 (06:19→16:56)
--- NOTE | 2018-04-27 06:19 | NUR ---
DUE MEDICATION ADMINISTERED PT TOLERATED WELL, NO DISTRESS NOTED, CALL LIGHT WITHIN REACH, WILL CONTINUE TO MONITOR.
[2018-04-27] MEDS ORDERED: LEVOTHYROXINE 0.025 MG TAB PO SCH (06:30)
--- NOTE | 2018-04-27 07:21 | NUR ---
ENDORSED PT TO DAY SHIFT NURSE VANDANA RN, PT IN STABLE CONDITION, NO DISTRESS NOTED, CALL LIGHT WITHIN REACH.
[2018-04-27 07:24] LABS: BASOPHILS # (AUTO) 0.1 K/uL (0.00-0.22); BASOPHILS % (AUTO) 0.6 % (0.0-2.0); EOSINOPHILS # (AUTO) 0.3 K/uL (0-0.4); EOSINOPHILS % (AUTO) 2.7 % (0.0-4.0); HEMATOCRIT 25.4 % (36-48); HEMOGLOBIN 8.1 g/dL (12.0-16.0); LYMPHOCYTES # (AUTO) 2.2 K/uL (2.5-16.5); MEAN CORPUSCULAR HEMOGLOBIN 23 pg (27-31); MEAN CORPUSCULAR HGB CONC 32 g/dL (33-37); MEAN CORPUSCULAR VOLUME 72.5 fL (80-94); MONOCYTES # (AUTO) 0.9 K/uL (0.8-1.0); MONOCYTES % (AUTO) 9.8 % (1.7-9.3); NEUTROPHILS # (AUTO) 5.9 K/uL (1.8-7.7); NEUTROPHILS % (AUTO) 62.9 % (42.2-75.2); PLATELET COUNT (AUTO) 371 K/uL (140-450); RED CELL DISTRIBUTION WIDTH 16.4 % (11.6-13.7); WHITE BLOOD COUNT (AUTO) 9.3 K/uL (4.8-10.8)
--- NOTE | 2018-04-27 07:25 | NUR ---
RECEIVED REPORT FROM CHIEF JUVENILE PROBATION OFFICER RN. PT IS DNR. PT HAS BEDSIDE COMMODE, WILL COLLECT OCCULT BLOOD SAMPLE. SKIN IS INTACT. IV SITE PATENT AND RUNNING IVF PER MD ORDERS. NO COMPLAINTS OF PAIN OR DISCOMFORT. NO SIGNS OF DISTRESS OR SOB. VITALS STABLE. ALL SAFETY PRECAUTIONS IN PLACE, WILL CONTINUE TO MONITOR.
[2018-04-27 07:33] LABS: ANION GAP 11.3 (8-16); CARBON DIOXIDE 25.2 mmol/L (21-32); CREATININE 1.1 mg/dL (0.6-1.3); POTASSIUM 4.5 mmol/L (3.5-5.1)
[2018-04-27 07:46] LABS: MAGNESIUM 2.2 mg/dL (1.8-2.4); PHOSPHORUS 3.7 mg/dL (2.5-4.9)
[2018-04-27 08:00] VITALS: BP 109/58
[2018-04-27] MEDS ORDERED: LISINOPRIL 20 MG TAB PO SCH (09:00)
[2018-04-27 09:03] LABS: FOLIC ACID 9.4 ng/mL (>3.0)
[2018-04-27 09:06] LABS: T4 (THYROXINE) 9.4 ug/dL (4.5-12.0)
[2018-04-27 09:15] LABS: CHOL/HDL RATIO 2.9 (1-4.5)
--- NOTE | 2018-04-27 09:18 | NUR ---
FAXED ADMIT ORDER, ER REPORT, H&P, MEDICATION LIST AND PROGRESS NOTE TO R[facility]I [phone] PHONE [phone] X [phone] ROBINA
[2018-04-27] MEDS: INSULIN LANTUS 100 UNITS/ML 10 ML VIAL SUBQ SCH (09:29)
--- NOTE | 2018-04-27 09:29 | NUR ---
SCHEDULED MEDICATIONS GIVEN AT THIS TIME PER MD ORDERS. PT DENIES PAIN AND DISCOMFORT.
[2018-04-27] MEDS: ATORVASTATIN 20 MG TAB PO SCH (09:30)
[2018-04-27] MEDS: GABAPENTIN 300 MG CAP PO SCH (09:31)
[2018-04-27] MEDS: ASPIRIN 81 MG TAB.CHEW PO SCH (09:31)
[2018-04-27] MEDS: DOCUSATE SODIUM 100 MG GELCAP PO SCH (09:31)
[2018-04-27] MEDS: amLODIPine 5 MG TAB PO SCH (09:31)
[2018-04-27] MEDS: metFORMIN 500 MG TAB PO SCH ×2 (09:32→21:34)
--- NOTE | 2018-04-27 11:02 | NUR ---
PATIENT HAS BEEN SCREENED AND CATEGORIZED HIGH NUTRITION RISK. PATIENT WILL BE SEEN WITHIN 1-2 DAYS OF ADMISSION. 04/27/18 04/28/[address]
--- NOTE | 2018-04-27 11:24 | NUR ---
EXPLAINED INSULIN REGIMEN TO PT AND FAMILY MEMBER AT BEDSIDE. PT VERBALIZED UNDERSTANDING.
[2018-04-27] MEDS: INSULIN LISPRO SLIDING SCALE 100 UNITS/ML VIAL SUBQ PRN ×2 (12:18→16:55)
--- NOTE | 2018-04-27 12:21 | NUR ---
SCHEDULED MEDICATIONS GIVEN PER MD ORDERS. PT DENIES PAIN AND DISCOMFORT. WILL CONTINUE TO MONITOR.
--- NOTE | 2018-04-27 14:36 | NUR ---
PT IS ASKING FOR WIPES TO USE AFTER URINATING. REINFORCED THE NEED TO OBTAIN OCCULT BLOOD SAMPLE. PT VOICES UNDERSTANDING.
[2018-04-27 16:00] VITALS: BP 144/62
--- NOTE | 2018-04-27 16:56 | NUR ---
SCHEDULED MEDICATIONS ADMINISTERED AT THIS TIME. PT DENIES PAIN AND DISCOMFORT. FAMILY MEMBERS AT BEDSIDE.
--- NOTE | 2018-04-27 18:53 | NUR ---
PT HAS NOT HAD BOWEL MOVEMENT DURING DAY SHIFT. WILL ENDORSE TO ELECTRICAL PROSPECTOR RN.
--- NOTE | 2018-04-27 19:10 | NUR ---
ENDORSED PLAN OF CARE TO COLD TYPE COMPOSING MACHINE OPERATOR RN. PT IN STABLE CONDITION.
--- NOTE | 2018-04-27 19:11 | NUR ---
RECEIVED BEDSIDE REPORT FROM DAY SHIFT NURSE VANDANA RN, PT STABLE, NO DISTRESS NOTED, IV TO R AC 20G, PATENT INTACT, INFUSING NS 60ML/HR, PT ON ROOM AIR NO SOB, FAMILY AT BEDSIDE, INITIAL ASSESSMENT DONE, ALL SAFETY PRECAUTION MET, WILL CONTINUE TO MONITOR.
[2018-04-27] MEDS: LISINOPRIL 20 MG TAB PO SCH (21:34)
--- NOTE | 2018-04-27 21:39 | NUR ---
DUE MEDICATION ADMINISTERED, PT TOLERATED WELL, PT ON BEDSIDE COMMODE, CALL LIGHT WITHIN REACH, WILL CONTINUE TO MONITOR.
--- NOTE | 2018-04-27 23:44 | NUR ---
CHECKED ON PT, PT SLEEPING, NO DISTRESS NOTED, CALL LIGHT WITHIN REACH, WILL CONTINUE TO MONITOR.
[2018-04-28] VITALS: BP 141/67
--- NOTE | 2018-04-28 02:10 | NUR ---
CHECKED ON PT, PT SLEEPING, NO DISTRESS NOTED, CALL LIGHT WITHIN REACH, WILL CONTINUE TO MONITOR.
[2018-04-28] MEDS: NACL 0.9% 1,000 ML IV SCH ×2 (04:55→15:02)
[2018-04-28] MEDS: ONDANSETRON 4 MG/2 ML VIAL IM/IVP PRN (04:56)
--- NOTE | 2018-04-28 04:56 | NUR ---
PT STATED FEELING NAUSEA, NAUSEA MEDICATION ORDERED, PT TOLERATED WELL, NO DISTRESS NOTED, CALL LIGHT WITHIN REACH, WILL CONTINUE TO MONITOR.
[2018-04-28] MEDS: LEVOTHYROXINE 0.025 MG TAB PO SCH (05:51)
[2018-04-28] MEDS: LEVOTHYROXINE 0.1 MG TAB PO SCH (05:51)
[2018-04-28 05:59] LABS: BASOPHILS # (AUTO) 0.1 K/uL (0.00-0.22); BASOPHILS % (AUTO) 0.5 % (0.0-2.0); EOSINOPHILS # (AUTO) 0.3 K/uL (0-0.4); EOSINOPHILS % (AUTO) 2.6 % (0.0-4.0); HEMATOCRIT 25.8 % (36-48); HEMOGLOBIN 7.9 g/dL (12.0-16.0); LYMPHOCYTES # (AUTO) 2.2 K/uL (2.5-16.5); LYMPHOCYTES % (AUTO) 16.9 % (20.5-51.1); MEAN CORPUSCULAR HEMOGLOBIN 22 pg (27-31); MEAN CORPUSCULAR HGB CONC 31 g/dL (33-37); MEAN CORPUSCULAR VOLUME 73.3 fL (80-94); MONOCYTES # (AUTO) 0.9 K/uL (0.8-1.0); MONOCYTES % (AUTO) 7.3 % (1.7-9.3); NEUTROPHILS # (AUTO) 9.4 K/uL (1.8-7.7); NEUTROPHILS % (AUTO) 72.7 % (42.2-75.2); PLATELET COUNT (AUTO) 373 K/uL (140-450); RED BLOOD CELL COUNT(AUTO) 3.53 MIL/uL (4.20-5.40); RED CELL DISTRIBUTION WIDTH 16.1 % (11.6-13.7)
[2018-04-28] MEDS: BLOOD GLUCOSE MONITORING 1 DEV DEV FS SCH ×4 (06:21→20:59)
[2018-04-28] MEDS: METOCLOPRAMIDE 10 MG TAB PO SCH ×3 (06:21→16:16)
[2018-04-28] MEDS: INSULIN LISPRO SLIDING SCALE 100 UNITS/ML VIAL SUBQ PRN ×3 (06:22→21:18)
--- NOTE | 2018-04-28 06:22 | NUR ---
DUE MEDICATION ADMINISTRATED, PT TOLERATED WELL, STABLE, NO DISTRESS NOTED, CALL LIGHT WITHIN REACH, WILL CONTINUE TO MONITOR.
[2018-04-28 06:38] LABS: ANION GAP 11.8 (8-16); CARBON DIOXIDE 22.8 mmol/L (21-32); CREATININE 1.3 mg/dL (0.6-1.3); POTASSIUM 4.6 mmol/L (3.5-5.1)
[2018-04-28 06:46] LABS: MAGNESIUM 2.1 mg/dL (1.8-2.4); PHOSPHORUS 3.1 mg/dL (2.5-4.9)
--- NOTE | 2018-04-28 07:30 | NUR ---
ENDORSED PT TO DAY SHIFT NURSE SIENNA REYNOSO, PT STABLE, NO DISTRESS NOTED, CALL LIGHT WITHIN REACH.
--- NOTE | 2018-04-28 07:35 | NUR ---
RECEIVED PT FROM HONEST JOHN ROCKET CREW MEMBER NURSE, PT IS AWAKE LYING ON THE BED, WITH SIDE RAILS UP AND CALL LIGHT WITHIN REACH. PT HAS AN IV LINE ON THE RIGHT AC G. 20 NS AT 60ML/HR. PLAN OF CARE WAS DISCUSSED AND PT VERBALIZED UNDERSTANDING. NO SIGN OF DISTRESS NOTED AND WILL CONTINUE TO MONITOR.
[2018-04-28 08:00] VITALS: BP 153/64
--- NOTE | 2018-04-28 08:46 | NUR ---
CONCURRENT REVIEW FAXED PROGRESS NOTES, MICROS, PT NOTES, ORDER FOR HOME HEALTH TO [facility] [phone] PHONE [phone] X [phone] ROBINA
[2018-04-28] MEDS ORDERED: CALCIUM CARB/VIT-D 500 MG/200 IU 1 TAB PO SCH (09:00)
--- NOTE | 2018-04-28 09:00 | NUR ---
PT IS AWAKE AND SEATED ON THE BED, VITAL SIGNS TAKEN AND IS STABLE. RESPIRATIONS EVEN AND NO SIGN OF DISTRESS NOTED ON THE PT. WILL CONTINUE TO MONITOR.
[2018-04-28] MEDS: ASPIRIN 81 MG TAB.CHEW PO SCH (09:23)
[2018-04-28] MEDS: metFORMIN 500 MG TAB PO SCH ×2 (09:23→21:07)
[2018-04-28] MEDS: GABAPENTIN 300 MG CAP PO SCH (09:23)
[2018-04-28] MEDS: ATORVASTATIN 20 MG TAB PO SCH (09:24)
[2018-04-28] MEDS: amLODIPine 5 MG TAB PO SCH (09:24)
[2018-04-28] MEDS: INSULIN LANTUS 100 UNITS/ML 10 ML VIAL SUBQ SCH (09:29)
[2018-04-28] MEDS: DOCUSATE SODIUM 100 MG GELCAP PO SCH (09:33)
--- NOTE | 2018-04-28 09:35 | NUR ---
PT IS AWAKE AND SEATED ON THE BED, BP WAS TAKEN PRIOR TO MEDICATION ADMINISTRATION. PT TOLERATED IT AND NO SIGN OF DISTRESS NOTED. WILL MONITOR.
--- NOTE | 2018-04-28 11:09 | NUR ---
Stratigrapher Note: Per Eladia from [facility] , they aren't accepting [facility] referrals because [employer] has an outstanding balance that they have not paid [facility], unable to accept patient. Per Catherine from [facility] , they aren't accepting [employer] referrals because [employer] has an outstanding balance that they have not paid [facility], unable to accept patient. Per Krystian from [facility] , they have a contract with [employer], she requested referral to be fax to , she stated she will check eligibility/benefits and call me back in 1.5 hours. Per Joya from [facility] , they have a contract with [employer], she requested referral to be fax to , she stated she will check eligibility/benefits and call me back in 1 hour. Addendum: 04/28/18 at 1126 by Jemma RAZO Rafael Ferrell from [facility] , they are in process of renegotiating their contract with [employer] and aren't accepting [employer] referrals at this time, unable to accept patient. Addendum: 04/28/18 at 1308 by Jemma Garcia SS Per Krystian from [facility] , she received referral, she stated they have had billing issues with [employer] in the past and isn't sure they can accept [employer] referrals at this time, she reported she is going to ask her director and call me back.
--- NOTE | 2018-04-28 13:45 | NUR ---
PT EVALUATION IS BEING DONE TO THE PT NOW. NO SOB NOTED AND PT IS WALKING FINE.
--- NOTE | 2018-04-28 15:31 | NUR ---
PHYSICAL THERAPY CO-SIGN The Physical Therapy Progress Notes documented by Home Care Manager Rn have been reviewed. I CONCUR W/HOUSECLEANER FLOOR NOTE; CONT PER TX PLAN Reviewed/Co-Signed by: Hanane Mcdonald, PT Documentation Done by: ROSE MENDEZ, DIANA Addendum: 04/28/18 at 1531 by Hanane Mcdonald PT Amended: Links added.
--- NOTE | 2018-04-28 15:34 | NUR ---
Regional Service Manager Note: I faxed referral to [facility]. Per Nathalie from [facility] , referral has been accepted, Nathalie is aware plan is to discharge patient over weekend. Nathalie will call nurses' station and request discharge date update, I provided her with telemetry's phone number. She stated they will send a nurse to patient's home either on Tuesday05/01/18 or Tuesday05/02/18.
--- NOTE | 2018-04-28 15:45 | NUR ---
DESTINY FROM CASE MANAGEMENT CALLED AND INFORMED THAT PT WAS ACCEPTED BY [facility].
[2018-04-28 16:00] VITALS: BP 148/51
--- NOTE | 2018-04-28 16:22 | NUR ---
PT IS AWAKE WITH FAMILY ON THE BEDSIDE, BLOOD GLUCOSE CHECK DONE AND RESULT IS 158 AND INSULIN COVERAGE IS NEEDED. MEDICATION GIVEN AND VITAL SIGNS TAKEN AND IS STABLE. NO SIGN OF DISTRESS NOTED AND WILL CONTINUE TO MONITOR.
--- NOTE | 2018-04-28 16:30 | NUR ---
PT IS AWAKE AND FAMILY IS ON THE BEDSIDE, VITAL SIGNS TAKEN AND IS STABLE. BLOOD GLUCOSE CHECK DONE AND RESULT IS 158, INSULIN COVERAGE GIVEN AND PT TOLERATED IT. ORAL MEDICATION WAS ALSO GIVEN. NO SIGN OF DISTRESS NOTED AND WILL CONTINUE TO MONITOR.
--- NOTE | 2018-04-28 16:32 | NUR ---
Chef Passenger Vessel Note: I met with patient at bedside. Patient speaks German. Per patient, she is in agreement with home health services as ordered by , informed her [facility] will send a nurse to her home either on Tuesday05/01/18 or Tuesday05/02/18, she verbalized understanding.
--- NOTE | 2018-04-28 16:34 | NUR ---
04/28/18 RD INITIAL ASSESSMENT COMPLETED PLEASE REFER TO NUTRITION ASSESSMENT UNDER CARE ACTIVITY FOR ESTIMATED NUTRITIONAL NEEDS. 1. CONTINUE CCHO 60 GM DIET TOLERATED 2. PROVIDED DIABETES NUTRITION EDUCATION HANDOUTS 3. RD TO FOLLOW-UP 3-5 DAYS, HIGH RISK NAVA MURRELL RD
--- NOTE | 2018-04-28 17:30 | NUR ---
ENDORSED PT TO AM NURSEPRISCILLA FOR CONTINUITY OF CARE. PT IS STABLE AT THIS TIME.
--- NOTE | 2018-04-28 19:22 | NUR ---
RECEIVED REPORT FROM RENO REYNOSO DAYSHIFT NURSE AT BEDSIDE FOR CONTINUITY OF CARE. PT AOX 4 SITTING IN LOW BED WITH HOB UP 45%. AT BEDSIDE. PT STABLE WITH NO S/S OF PAIN OR DISTRESS NOTED.
--- NOTE | 2018-04-28 19:22 | NUR ---
PATIENT REPORT GIVEN AT BEDSIDE. PATIENT ENDORSES IN STABLE CONDITION
--- NOTE | 2018-04-28 20:09 | NUR ---
PT SITTING UP IN BED NO S/S OF PAIN OR DISTRESS AND ALL FALLS PRECAUTIONS IN PLACE PT HAS 22 G IN LEFT ARM RUNNING N/S AT 60. NO S/S OF INFILTRATION NOTED. PT LUNGS CLEAR TO AUSCULTATION AND B/S HEARD ALL 4 QUADS V/S FOLLOWS T 98.2 P 85 R 20 B/P 129/55 02 93% R/A , RESPIRATIONS EVEN AND UNLABORED. PT REMAINS ON STRICT I AND O PT HAS 650 YELLOW URINE OUTPUT NOTED COMMODE AT BEDSIDE AND CALL SALOMON IN REACH.
[2018-04-28] MEDS: LISINOPRIL 20 MG TAB PO SCH (21:08)
[2018-04-29] VITALS: BP 144/62
--- NOTE | 2018-04-29 00:30 | NUR ---
PT IN BED ASLEEP BUT AROUSABLE TO NAME, PT C/O HEAVINESS IN HER CHEST AND CONGESTION. PT GIVEN PRN NEB TX WITH RT. PT V/S FOLLOWS T 98.3 P 80 R 18 B/P 144/62 02 97% ON R/A . PT DOV 1 CUP OF WATER
[2018-04-29] MEDS: ALBUTEROL SULFATE/IPRATROPIU 3 ML SOL IH PRN (00:49)
--- NOTE | 2018-04-29 03:30 | NUR ---
PT SLEEPING IN BED CALL SALOMON IN REACH, NO S/S OF PAIN OR DISTRESS NOTED. BEDSIDE COMMODE EMPTIED AND ANOTHER 300 MLS OF CLOUDY YELLOW URINE NOTED. IV SITE PT AND N/S RUNNING ORDERED.
[2018-04-29 06:00] LABS: BASOPHILS # (AUTO) 0.1 K/uL (0.00-0.22); BASOPHILS % (AUTO) 0.4 % (0.0-2.0); EOSINOPHILS # (AUTO) 0.4 K/uL (0-0.4); HEMATOCRIT 24.9 % (36-48); HEMOGLOBIN 7.7 g/dL (12.0-16.0); LYMPHOCYTES % (AUTO) 25.1 % (20.5-51.1); MEAN CORPUSCULAR HEMOGLOBIN 22 pg (27-31); MEAN CORPUSCULAR HGB CONC 31 g/dL (33-37); MEAN CORPUSCULAR VOLUME 72.5 fL (80-94); MONOCYTES # (AUTO) 0.7 K/uL (0.8-1.0); MONOCYTES % (AUTO) 5.6 % (1.7-9.3); NEUTROPHILS # (AUTO) 7.9 K/uL (1.8-7.7); NEUTROPHILS % (AUTO) 65.9 % (42.2-75.2); PLATELET COUNT (AUTO) 373 K/uL (140-450); RED BLOOD CELL COUNT(AUTO) 3.44 MIL/uL (4.20-5.40); RED CELL DISTRIBUTION WIDTH 16.3 % (11.6-13.7); WHITE BLOOD COUNT (AUTO) 11.9 K/uL (4.8-10.8)
--- NOTE | 2018-04-29 06:00 | NUR ---
PT SLEEPING SOUNDLY, NO S/S OF PAIN OR DISTRESS. F/S 64 PT GIVEN JUICE WITH MORNING MEDICATION.
[2018-04-29] MEDS: LEVOTHYROXINE 0.1 MG TAB PO SCH (06:05)
[2018-04-29] MEDS: LEVOTHYROXINE 0.025 MG TAB PO SCH (06:05)
[2018-04-29] MEDS: BLOOD GLUCOSE MONITORING 1 DEV DEV FS SCH (06:07)
[2018-04-29 06:29] LABS: ANION GAP 6.7 (8-16); CARBON DIOXIDE 27.6 mmol/L (21-32); POTASSIUM 4.3 mmol/L (3.5-5.1)
[2018-04-29] MEDS: METOCLOPRAMIDE 10 MG TAB PO SCH (06:29)
--- NOTE | 2018-04-29 07:15 | NUR ---
REPORT GIVEN TO ANGELES SNYDER DAYSHIFT NURSE FOR CONTINUITY OF CARE.
--- NOTE | 2018-04-29 07:16 | NUR ---
RECEIVED REPORT FROM MEDICINE AND HEALTH SERVICE MANAGER RN. PATIENT IS AAOX4, HAS NO SIGNS AND SYMPTOMS OF ACUTE DISTRESS NOTED AT THIS TIME. HAS IV TO THE LEFT FA 22G, INFUSING NS AT 45 ML/HR. SITE IS CLEAN, DRY, PATENT AND INTACT. HAS BEDSIDE COMMODE AVAILABLE. DISCUSSED PLAN OF CARE WITH PATIENT AND SHE VERBALIZED UNDERSTANDING. BED IN LOWEST POSITION, SIDE RAILS UP X2, CALL LIGHT WITHIN REACH. FALL RISK PROTOCOL IN PLACE. WILL CONTINUE TO MONITOR.
[2018-04-29 08:00] VITALS: BP 153/55
[2018-04-29] MEDS ORDERED: SULF-58 PO (09:15)
[2018-04-29] MEDS ORDERED: LACT10CA1 PO (09:15)
[2018-04-29] MEDS: ASPIRIN 81 MG TAB.CHEW PO SCH (09:46)
[2018-04-29] MEDS: metFORMIN 500 MG TAB PO SCH (09:46)
[2018-04-29] MEDS: amLODIPine 5 MG TAB PO SCH (09:46)
[2018-04-29] MEDS: GABAPENTIN 300 MG CAP PO SCH (09:46)
[2018-04-29] MEDS: INSULIN LANTUS 100 UNITS/ML 10 ML VIAL SUBQ SCH (09:47)
[2018-04-29] MEDS: DOCUSATE SODIUM 100 MG GELCAP PO SCH (09:47)
--- NOTE | 2018-04-29 11:00 | NUR ---
PATIENT HAS DISCHARGE ORDER IN PLACE. INFORMED PATIENT THAT SHE HAS A PRESCRIPTION IN HER DISCHARGE PACKET. EDUCATED HER ON WORSENING SYMPTOMS TO SEEK EMERGENCY MEDICAL ATTENTION. PATIENT VERBALIZED UNDERSTANDING. REMOVED IV FROM SITE. CATHETER INTACT. REMOVED ID BAND. ALL BELONGINGS ARE WITH PATIENT. STUDENT WILL WHEEL PATIENT OUT. PATIENT HAS NO SIGNS AND SYMPTOMS OF ACUTE DISTRESS NOTED AT THIS TIME.
--- NOTE | 2018-05-01 10:47 | NUR ---
DC SUMMARY FAXED TO RANDI [phone] PHONE [phone] X [phone] ROBINA
== END 2018-04-29 11:00 | disposition home health service (06) | DRG 720 ==
LOC: MED 05:20 → MTU 12:10
PROVIDERS: ADMIT General Practice; ATTEND General Practice
DX: A41.9 Sepsis, unspecified organism (principal); N17.0 Acute kidney failure with tubular necrosis; K31.84 Gastroparesis; E11.65 Type 2 diabetes mellitus with hyperglycemia; E87.1 Hypo-osmolality and hyponatremia; E87.8 Other disorders of electrolyte and fluid balance, not elsewhere classified; E11.43 Type 2 diabetes mellitus with diabetic autonomic (poly)neuropathy; N39.0 Urinary tract infection, site not specified; K59.00 Constipation, unspecified; D64.9 Anemia, unspecified; E03.9 Hypothyroidism, unspecified; I10 Essential (primary) hypertension; E66.3 Overweight; Z68.29 Body mass index [BMI] 29.0-29.9, adult; Z66 Do not resuscitate
CPT/HCPCS: 36415; 71045; 80048; 80053; 80305; 81001; 82272; 82607; 82728; 82746; 82948; 83036; 83540; 83605; 83690; 83735; 83880; 84100; 84134; 84436; 84443; 84484; 85025; 85045; 85610; 85730; 87040; 87081; 87086; 87186; 93005; 93925; 93970; 94640; 96361; 96365; 96375; 97110; 97116; 97530; 97535; 99285; J0696; J1815; J1885; J1956; J2405; J7030; J7060; J7620; J8597; Q0092

== ENCOUNTER 2018-10-14 12:26 | Emergency (ER) | payer MEDICARE, OTHER ==
[~2018-10-14] VITALS: Ht 162.6 cm; Wt 87.5 kg
[~2018-10-14 12:26] MED LIST changes: +LACT10CA1 PO; +SULF-58 PO
[2018-10-14 12:30] VITALS: BP 162/76
--- NOTE | 2018-10-14 12:43 | NUR ---
pt transferred to 8
--- NOTE | 2018-10-14 12:45 | NUR ---
63 YO F BIB W/ C/O 02/26 INTERMITTENT NON RADIATING "SHARP" CHEST, BL LOWER ABD, AND HEADACHE X 1 WEEK. PT REPORTS INTERMITTENT N/V. INTERMITTENT FEVERS. PT ALSO REPORTS OF DRY COUGH. AAOX4 TO PERSON, PLACE, TIME, AND SITUATION. GCS 15. AMBULATORY W/ STEADY GAIT. SPEAKING IN FULL, COMPLETE SENTENCES. SKIN WARM, DRY AND COLOR APPROPRIATE FOR ETHNICITY. PT STATES SHE WAS DX W/ UTI. ABD SOFT, NON-TENDER. PT PLACED TO CARDIAC, BP, PULSE OX, AND PULSE MONITORING. AWAITING ER MD SKY. WILL CONTINUE TO MONITOR.
--- NOTE | 2018-10-14 14:25 | NUR ---
lab by bedside
[2018-10-14 14:36] LABS: BASOPHILS # (AUTO) 0.1 K/uL (0.00-0.22); BASOPHILS % (AUTO) 0.8 % (0.0-2.0); EOSINOPHILS # (AUTO) 0.2 K/uL (0-0.4); HEMATOCRIT 33.4 % (36-48); HEMOGLOBIN 10.4 g/dL (12.0-16.0); LYMPHOCYTES # (AUTO) 2.1 K/uL (2.5-16.5); LYMPHOCYTES % (AUTO) 19.7 % (20.5-51.1); MEAN CORPUSCULAR HEMOGLOBIN 23 pg (27-31); MEAN CORPUSCULAR HGB CONC 31 g/dL (33-37); MEAN CORPUSCULAR VOLUME 72.4 fL (80-94); MONOCYTES # (AUTO) 0.6 K/uL (0.8-1.0); MONOCYTES % (AUTO) 5.3 % (1.7-9.3); NEUTROPHILS # (AUTO) 7.6 K/uL (1.8-7.7); NEUTROPHILS % (AUTO) 72.2 % (42.2-75.2); PLATELET COUNT (AUTO) 483 K/uL (140-450); RED BLOOD CELL COUNT(AUTO) 4.61 MIL/uL (4.20-5.40); WHITE BLOOD COUNT (AUTO) 10.6 K/uL (4.8-10.8)
[2018-10-14] MEDS ORDERED: ALBUTEROL 0.083% 2.5 MG/3 ML NEBU INH ONE (14:55)
[2018-10-14 14:58] LABS: ALBUMIN 3.5 g/dL (3.4-5.0); ANION GAP 12.5 (8-16); CARBON DIOXIDE 25.3 mmol/L (21-32); CREATININE 1.3 mg/dL (0.6-1.3); POTASSIUM 4.8 mmol/L (3.5-5.1); TOTAL BILIRUBIN 0.2 mg/dL (0.0-1.0)
--- NOTE | 2018-10-14 15:00 | NUR ---
rt by bedside administering breathing txt. patient tolerating well.
[2018-10-14 15:07] LABS: APPEARANCE,URINE SLIGHTLY CLOUDY (CLEAR); BILIRUBIN,URINE NEGATIVE (NEGATIVE); BLOOD, URINE TRACE-I (NEGATIVE); COLOR,URINE YELLOW (YELLOW); LEUKOCYTE ESTERASE ,URINE 3+ (NEGATIVE); NITRITE, URINE NEGATIVE (NEGATIVE); UGLUCOSE TRACE (NEGATIVE)
[2018-10-14 15:10] LABS: RBC,URINE 3-10 (FEW) /HPF (0-5); WBC,URINE TOO MANY TO COUNT /HPF (0-5)
[2018-10-14 17:00] VITALS: BP 123/51
--- NOTE | 2018-10-14 17:00 | NUR ---
Patient discharged with v/s stable. Written and verbal after care instructions given and explained. Patient alert, oriented and verbalized understanding of instructions. Ambulatory with steady gait. All questions addressed prior to discharge. ID band removed. Patient advised to follow up with PMD. Rx of Nitrofurantoin 100mg given. Patient educated on indication of medication including possible reaction and side effects. Opportunity to ask questions provided and answered.
== END 2018-10-14 17:00 | disposition home or self-care (01) ==
LOC: MED 12:26
DX: N39.0 Urinary tract infection, site not specified (principal); R07.9 Chest pain, unspecified; J45.909 Unspecified asthma, uncomplicated; I10 Essential (primary) hypertension; E11.9 Type 2 diabetes mellitus without complications; E03.9 Hypothyroidism, unspecified; E78.5 Hyperlipidemia, unspecified; Z79.4 Long term (current) use of insulin; Z79.82 Long term (current) use of aspirin; Z79.2 Long term (current) use of antibiotics; Z79.899 Other long term (current) drug therapy; Z88.0 Allergy status to penicillin; Z88.8 Allergy status to other drugs, medicaments and biological substances; Z88.1 Allergy status to other antibiotic agents; Z88.5 Allergy status to narcotic agent
CPT/HCPCS: 36415; 71045; 80053; 81001; 81002; 81025; 82150; 82948; 83690; 84703; 85025; 87086; 93005; 94640; 99284; J7613; Q0092; 87186

== ENCOUNTER 2018-10-26 17:48 | Inpatient (IN) | payer OTHER ==
[~2018-10-26] VITALS: Ht 157.5 cm; Wt 60.8 kg
[2018-10-26 18:00] VITALS: BP 167/69
--- NOTE | 2018-10-26 18:02 | NUR ---
PT AMBULATED TO ER BED 09
[2018-10-26] MEDS ORDERED: ASPIRIN 81 MG TAB.CHEW PO ONE (18:15)
[2018-10-26] MEDS ORDERED: NACL 0.9% 1,000 ML IV ONE (18:15)
--- NOTE | 2018-10-26 18:15 | NUR ---
PT C/O L SIDED CHEST PAIN INCREASING IN PAIN X1 WEEK, WORSE TODAY. DENIES COUGH. . DENIES N/V/D; SKIN IS PINK/WARM/DRY; AAOX4 WITH EVEN AND STEADY GAIT; LUNGS CLEAR BL; HR EVEN AND REGULAR; PT DENIES ANY FEVER, CP, SOB, OR COUGH AT THIS TIME; PATIENT STATES PAIN OF 8/10 AT THIS TIME; VSS; PATIENT POSITIONED FOR COMFORT; HOB ELEVATED; BEDRAILS UP X2; BED DOWN. ER MD MADE AWARE OF PT STATUS.
--- NOTE | 2018-10-26 18:20 | NUR ---
PT REFUSED NITRO-BID 2%, WHEN I apply nitro-bid 2% to pt chest, pt said " NO NO NO, THAT'S NOT GOOD ". I ASKED PT " WHY DID YOU SAY IT IS NOT GOOD ?", PT STATED SHE HAD SHAKING AFTER SOME ONE GIVE THIS MEDICATION ON HER CHEST. PT ALSO STATED SHE FELT BURING AFTER THEY PUT MEDICATION ON HER CHEST, FAMILY AT BEDSIDE, NOTIFIED DR. LAWS.
[2018-10-26] MEDS: NITROGLYCERIN 2% 1 GM PKT TP ONE ×2 (18:34→19:02)
[2018-10-26 18:52] LABS: BASOPHILS # (AUTO) 0.1 K/uL (0.00-0.22); BASOPHILS % (AUTO) 0.6 % (0.0-2.0); EOSINOPHILS # (AUTO) 0.2 K/uL (0-0.4); EOSINOPHILS % (AUTO) 2.2 % (0.0-4.0); HEMOGLOBIN 9.7 g/dL (12.0-16.0); LYMPHOCYTES # (AUTO) 2.2 K/uL (2.5-16.5); LYMPHOCYTES % (AUTO) 20.9 % (20.5-51.1); MEAN CORPUSCULAR HEMOGLOBIN 23 pg (27-31); MEAN CORPUSCULAR HGB CONC 31 g/dL (33-37); MEAN CORPUSCULAR VOLUME 72.4 fL (80-94); MONOCYTES # (AUTO) 0.6 K/uL (0.8-1.0); MONOCYTES % (AUTO) 6.1 % (1.7-9.3); NEUTROPHILS # (AUTO) 7.3 K/uL (1.8-7.7); NEUTROPHILS % (AUTO) 70.2 % (42.2-75.2); PLATELET COUNT (AUTO) 440 K/uL (140-450); RED BLOOD CELL COUNT(AUTO) 4.28 MIL/uL (4.20-5.40); RED CELL DISTRIBUTION WIDTH 17.6 % (11.6-13.7); WHITE BLOOD COUNT (AUTO) 10.4 K/uL (4.8-10.8)
[2018-10-26 19:04] LABS: ALBUMIN 3.2 g/dL (3.4-5.0); ANION GAP 12.9 (8-16); CREATININE 1.5 mg/dL (0.6-1.3); POTASSIUM 4.9 mmol/L (3.5-5.1); TOTAL BILIRUBIN 0.1 mg/dL (0.0-1.0)
[2018-10-26 19:13] LABS: PROTHROMBIN TIME 9.2 secs (10.8-13.4)
--- NOTE | 2018-10-26 19:15 | NUR ---
ASSUMED CARE OF PT AT THIS TIME. PT AWAITS MD DISPOSITION, NAD. VSS. WILL CONTINUE TO MONITOR.
--- NOTE | 2018-10-26 19:15 | NUR ---
ENDORSED PT TO PM NURSE.
[2018-10-26] MEDS ORDERED: fentaNYL 0.05 MG/ML VIAL IVP ONE (19:55)
[2018-10-26] MEDS: NACL 0.9% 1,000 ML IV SCH (20:14)
[2018-10-26] MEDS ORDERED: ACETAMINOPHEN 325 MG TAB PO PRN (20:15)
[2018-10-26] MEDS ORDERED: ZOLPIDEM 5 MG TAB PO PRN (20:15)
[2018-10-26] MEDS ORDERED: DOCUSATE SODIUM 100 MG GELCAP PO PRN (20:15)
[2018-10-26] MEDS ORDERED: LORazepam 2 MG/ML VIAL IM/IVP PRN (20:15)
[2018-10-26] MEDS ORDERED: ONDANSETRON 4 MG/2 ML VIAL IM/IVP PRN (20:15)
[2018-10-26] MEDS ORDERED: DEXTROSE 50% 50 ML SYR IVP PRN (20:20)
--- NOTE | 2018-10-26 20:35 | NUR ---
Patient will be admitted to care of [facility]. Admitted to TELE. Will go to room 119A. Belongings list completed. Report to ANGELES BRANDON.
[2018-10-26 20:40] VITALS: BP 145/63
--- NOTE | 2018-10-26 20:40 | NUR ---
RECEIVED REPORT FROM ER NURSE MIGUE-RN AT BEDSIDE. PT ARRIVED VIA GURNEY AND AMBULATED WITH ASSISTANCE TO THE BED. AOX4- CONGOLESE SPEAKER, ON ROOM AIR WITH RIGHT AC #20G. DISCUSSED PLAN OF CARE AND PT VERBALIZED UNDERSTANDING. NO S/S OF RESPIRATORY DISTRESS OR DISCOMFORT NOTED AT THIS TIME. VITAL SIGNS AND MRSA SWAB WERE COLLECTED- PT TOLERATED WELL. ORIENTED PT TO BEDROOM, AND CALL LIGHT. BED IN LOWEST POSITION, BED BREAKS ON, BOTH SIDE RAILS UP AND FALL PRECAUTIONS IN PLACE. BEDSIDE TABLE AND CALL LIGHT ARE WITHIN REACH. WILL CONTINUE TO MONITOR.
[2018-10-26 20:49] LABS: CHOL/HDL RATIO 3.1 (1-4.5); FREE T4 (FREE THYROXINE) 1.31 ng/dL (0.76-1.46); MAGNESIUM 1.9 mg/dL (1.8-2.4); PHOSPHORUS 3.6 mg/dL (2.5-4.9); THYROID STIMULATING HORMONE 2.44 uIU/mL (0.34-3.74)
--- NOTE | 2018-10-26 21:00 | NUR ---
BLOOD GLUCOSE 140- NO INSULIN COVERAGE NEEDED. NO S/S OF RESPIRATORY DISTRESS OR DISCOMFORT NOTED AT THIS TIME. WILL CONTINUE TO MONITOR.
[2018-10-26] MEDS: BLOOD GLUCOSE MONITORING 1 DEV DEV FS SCH (21:26)
--- NOTE | 2018-10-26 21:35 | NUR ---
DR. MARTI IN TO SEE PT. WILL ORDER MUSCLE RELAXER FOR SYMPTOMS OF BODY PAIN AND NITROSTAT FOR CHEST PAIN. NO S/S OF RESPIRATORY DISTRESS OR DISCOMFORT NOTED AT THIS TIME. WILL CONTINUE TO MONITOR.
[2018-10-26] MEDS ORDERED: ATORVASTATIN 20 MG TAB PO SCH (22:30)
[2018-10-26] MEDS ORDERED: NITROGLYCERIN 0.4 MG TAB SL ONE (22:30)
[2018-10-26] MEDS ORDERED: CYCLOBENZAPRINE 10 MG TAB ONE (22:56)
[2018-10-26] MEDS: CYCLOBENZAPRINE 10 MG TAB PO SCH (23:26)
--- NOTE | 2018-10-26 23:27 | NUR ---
SCHEDULED MEDICATION GIVEN. PT TOLERATED WELL. NITROSTAT BEGAN TO BURN LIKE "HOT CHILLIES" AND CALLED DR. MARTI. DUE TO HER EXTENSIVE ALLERGIES WAS ORDERED TO HAVE PT SPIT OUT NITROSTAT IF SHE HAD ANY MORE SYMPTOMS. PT STATED THAT SHE FELT HER NOSTRILS WERE FLARING. PT SPIT OUT NITROSTAT FROM UNDERNEATH HER TONGUE. DR. MARTI SAID IT WOULD BE OK TO DRINK SOME WATER. PT DRANK WATER AND NO LONGER HAD ANY COMPLAINTS. NO S/S OF RESPIRATORY DISTRESS OR DISCOMFORT NOTED AT THIS TIME. WILL CONTINUE TO MONITOR.
[2018-10-27] VITALS: BP 152/58
--- NOTE | 2018-10-27 | NUR ---
VITAL SIGNS TAKEN AND TOLERATED WELL. NO S/S OF RESPIRATORY DISTRESS OR DISCOMFORT NOTED AT THIS TIME. WILL CONTINUE TO MONITOR.
--- NOTE | 2018-10-27 02:00 | NUR ---
PT RESTING IN BED. NO S/S OF RESPIRATORY DISTRESS OR DISCOMFORT NOTED AT THIS TIME. WILL CONTINUE TO MONITOR.
[2018-10-27 04:00] VITALS: BP 153/56
--- NOTE | 2018-10-27 04:00 | NUR ---
VITAL SIGNS TAKEN AND TOLERATED WELL. NO S/S OF RESPIRATORY DISTRESS OR DISCOMFORT NOTED AT THIS TIME. WILL CONTINUE TO MONITOR.
--- NOTE | 2018-10-27 06:00 | NUR ---
BLOOD GLUCOSE 149- NO INSULIN COVERAGE NEEDED. NO S/S OF RESPIRATORY DISTRESS OR DISCOMFORT NOTED AT THIS TIME. WILL CONTINUE TO MONITOR.
[2018-10-27] MEDS: PANTOPRAZOLE 40 MG TABEC PO SCH (06:02)
[2018-10-27] MEDS: BLOOD GLUCOSE MONITORING 1 DEV DEV FS SCH ×4 (06:02→20:09)
--- NOTE | 2018-10-27 06:02 | NUR ---
SCHEDULED MEDICATION PROTONIX GIVEN AND TOLERATED WELL. NO S/S OF RESPIRATORY DISTRESS OR DISCOMFORT NOTED AT THIS TIME. WILL CONTINUE TO MONITOR.
[2018-10-27 06:13] LABS: BASOPHILS # (AUTO) 0.1 K/uL (0.00-0.22); BASOPHILS % (AUTO) 0.5 % (0.0-2.0); EOSINOPHILS # (AUTO) 0.3 K/uL (0-0.4); EOSINOPHILS % (AUTO) 3.2 % (0.0-4.0); HEMOGLOBIN 8.4 g/dL (12.0-16.0); LYMPHOCYTES # (AUTO) 2.8 K/uL (2.5-16.5); LYMPHOCYTES % (AUTO) 27.9 % (20.5-51.1); MEAN CORPUSCULAR HEMOGLOBIN 23 pg (27-31); MEAN CORPUSCULAR HGB CONC 31 g/dL (33-37); MONOCYTES # (AUTO) 0.8 K/uL (0.8-1.0); MONOCYTES % (AUTO) 8.2 % (1.7-9.3); NEUTROPHILS % (AUTO) 60.2 % (42.2-75.2); PLATELET COUNT (AUTO) 385 K/uL (140-450); RED CELL DISTRIBUTION WIDTH 17.1 % (11.6-13.7)
[2018-10-27 06:37] LABS: ANION GAP 7.1 (8-16); CARBON DIOXIDE 27.7 mmol/L (21-32); CREATININE 1.2 mg/dL (0.6-1.3); POTASSIUM 4.8 mmol/L (3.5-5.1)
[2018-10-27 06:46] LABS: MAGNESIUM 1.8 mg/dL (1.8-2.4); PHOSPHORUS 3.6 mg/dL (2.5-4.9)
[2018-10-27 06:53] LABS: CHOL/HDL RATIO 3.1 (1-4.5)
--- NOTE | 2018-10-27 07:14 | NUR ---
ENDORSED PT CARE TO DAY SHIFT NURSE ROEL FOR CONTINUITY OF CARE.
--- NOTE | 2018-10-27 07:23 | NUR ---
RECEIVED REPORT FROM [employer] DATA HADOOP DEVELOPER RN AT BEDSIDE. PT IS TRINO, KENYAN SPEAKER, ON ROOM AIR WITH RIGHT AC #20G. DISCUSSED PLAN OF CARE AND PT VERBALIZED UNDERSTANDING. NO S/S OF RESPIRATORY DISTRESS OR DISCOMFORT NOTED AT THIS TIME. ORIENTED PT TO BEDROOM, AND CALL LIGHT. BED IN LOWEST POSITION, BED BREAKS ON, BOTH SIDE RAILS UP AND FALL PRECAUTIONS IN PLACE. BEDSIDE TABLE AND CALL LIGHT ARE WITHIN REACH. WILL CONTINUE TO MONITOR PT.
[2018-10-27 08:00] VITALS: BP 154/62
--- NOTE | 2018-10-27 08:12 | NUR ---
PATIENT HAS BEEN SCREENED AND CATEGORIZED MODERATE NUTRITION RISK. PATIENT WILL BE SEEN WITHIN 3-5 DAYS OF ADMISSION. 10/29/18RUTH MCC[address]
[2018-10-27] MEDS: metFORMIN 500 MG TAB PO SCH ×2 (09:35→17:48)
[2018-10-27] MEDS: ASPIRIN 81 MG TAB.CHEW PO SCH (09:35)
[2018-10-27] MEDS: LISINOPRIL 20 MG TAB PO SCH (09:36)
[2018-10-27] MEDS: GABAPENTIN 300 MG CAP PO SCH (09:36)
[2018-10-27] MEDS: CYCLOBENZAPRINE 10 MG TAB PO SCH ×3 (09:36→17:48)
[2018-10-27] MEDS: METOPROLOL 25 MG TAB PO SCH ×2 (09:37→21:00)
[2018-10-27] MEDS: amLODIPine 5 MG TAB PO SCH (09:37)
--- NOTE | 2018-10-27 09:44 | NUR ---
ADMINISTERED MORNING MEDS TO PT. PT TOLERATED THEM WELL. ALL OTHER NEEDS MET AT THIS TIME. WILL CONTINUE TO ROUND FREQUENTLY.
[2018-10-27] MEDS: INSULIN LANTUS 100 UNITS/ML 10 ML VIAL SUBQ SCH (10:38)
[2018-10-27 12:00] VITALS: BP 127/54
[2018-10-27] MEDS: NACL 0.9% 1,000 ML IV SCH (13:16)
--- NOTE | 2018-10-27 14:16 | NUR ---
PT RESTING IN BED WITH AT BEDSIDE. PT CALLS WHEN NEEDS TO GO TO RESTROOM. PT UNSTEADY ON FEET BUT DOES WELL WITH 1 PERSON ASSISTANCE. ALL OTHER NEEDS MET AT THIS TIME. WILL CONTINUE TO MONITOR PT. CALL LIGHT WITHIN REACH, BED IN LOW POSITION.
[2018-10-27 16:00] VITALS: BP 136/73
--- NOTE | 2018-10-27 19:21 | NUR ---
ENDORSED PT TO TECHNICAL SPECIALIST FOR CONTINUITY OF CARE. PT IN STABLE CONDITION.
--- NOTE | 2018-10-27 19:22 | NUR ---
RECEIVED REPORT FROM AM RN AT BEDSIDE. TELE PT.PT IS AAOX4, INDONESIAN SPEAKING,NEEDS PUMP PRESS OPERATOR, UNDERSTANDS A LITTLE MAURITANIAN, W/ NS AT 60ML/HR AT RIGHT AC #20G. O PT HAS SLIGHT DISCOMFORT CHEST 11/26, DR. OROSCO TO VISIT PT , CALL LIGHT. BOTH SIDE RAILS UP AND FALL PRECAUTIONS IN PLACE. BEDSIDE TABLE AND CALL LIGHT ARE WITHIN REACH. WILL CONTINUE TO MONITOR PT.
[2018-10-27 20:00] VITALS: BP 92/46
--- NOTE | 2018-10-27 20:00 | NUR ---
PT HAS LOW BLOOD PRESSURE 96/46MMHG. DR. LEONARD AWARE. PLACED ON [place] POSITION FOR 20 MINS.
[2018-10-27] MEDS: INSULIN LISPRO SLIDING SCALE 100 UNITS/ML VIAL SUBQ PRN (20:12)
--- NOTE | 2018-10-27 20:20 | NUR ---
RETAKE BP AND IS NOW 122/60. BP MEDS WITHHELD FOR TONIGHT ONLY. DR. LEONARD AWARE.WILL MONITOR
[2018-10-27] MEDS: ATORVASTATIN 20 MG TAB PO SCH (20:40)
--- NOTE | 2018-10-27 21:00 | NUR ---
DR. OROSCO CAME, EXAMINED PT AT BEDSIDE. NO NEW ORDERS.
--- NOTE | 2018-10-27 21:30 | NUR ---
PT C/O OF PAIN ON CHEST,AND BACK 11/26. WILL MEDICATE .
[2018-10-28] VITALS: BP 104/44
[2018-10-28 04:00] VITALS: BP 108/45
[2018-10-28] MEDS: NACL 0.9% 1,000 ML IV SCH ×2 (05:34→22:14)
[2018-10-28] MEDS: PANTOPRAZOLE 40 MG TABEC PO SCH (06:18)
[2018-10-28] MEDS: BLOOD GLUCOSE MONITORING 1 DEV DEV FS SCH ×4 (06:24→20:30)
[2018-10-28] MEDS: METOPROLOL 25 MG TAB PO SCH ×2 (06:29→20:23)
--- NOTE | 2018-10-28 06:31 | NUR ---
DR LAI INFORMED THAT BP OF PT IS HIGH AT 164/68, RI 78. ORDERED LOPRESSOR FOR 9 AM TO BE GIVEN EARLY.
[2018-10-28 07:20] LABS: BASOPHILS # (AUTO) 0.1 K/uL (0.00-0.22); BASOPHILS % (AUTO) 0.6 % (0.0-2.0); EOSINOPHILS # (AUTO) 0.3 K/uL (0-0.4); EOSINOPHILS % (AUTO) 3.5 % (0.0-4.0); HEMATOCRIT 28.5 % (36-48); HEMOGLOBIN 8.9 g/dL (12.0-16.0); LYMPHOCYTES # (AUTO) 2.9 K/uL (2.5-16.5); LYMPHOCYTES % (AUTO) 31.9 % (20.5-51.1); MEAN CORPUSCULAR HEMOGLOBIN 23 pg (27-31); MEAN CORPUSCULAR HGB CONC 31 g/dL (33-37); MEAN CORPUSCULAR VOLUME 73.6 fL (80-94); MONOCYTES # (AUTO) 0.8 K/uL (0.8-1.0); MONOCYTES % (AUTO) 8.8 % (1.7-9.3); NEUTROPHILS # (AUTO) 5.1 K/uL (1.8-7.7); NEUTROPHILS % (AUTO) 55.2 % (42.2-75.2); PLATELET COUNT (AUTO) 405 K/uL (140-450); RED BLOOD CELL COUNT(AUTO) 3.88 MIL/uL (4.20-5.40); RED CELL DISTRIBUTION WIDTH 17.7 % (11.6-13.7); WHITE BLOOD COUNT (AUTO) 9.1 K/uL (4.8-10.8)
--- NOTE | 2018-10-28 07:20 | NUR ---
ENDORSED TO AM SHIFT FOR CONTINUITY OF CARE. NO CHEST PAIN COMPLAINTS NOR LEG PAIN.PT IN STABLE CONDITION.
--- NOTE | 2018-10-28 07:21 | NUR ---
RECEIVED REPORT FORM PM NURSE AT BEDSIDE. PT LYING ON THE BED COMFORTABLY. DENIES ANY PAIN. PT ABLE TO COMMUNICATE . UPDATED BOARD AND INTRODUCED SELF. PT HAS RT AC 20 G, IVF NS INFUSING AT 60 ML/HR, IS ON CARDIAC DIET. PT IS ON FALL RISK , HAS BSC. NO SIGN OF DISTRESS NOTED. CALL LIGHT WITHIN PTS REACH. INFORMED TO USE CALL LIGHT FOR ANY HELP. VERBALIZED UNDERSTANDING. WILL CONTINUE TO MONITOR PT.
[2018-10-28 07:29] LABS: ANION GAP 5.5 (8-16); CARBON DIOXIDE 26.3 mmol/L (21-32); CREATININE 1.3 mg/dL (0.6-1.3); POTASSIUM 4.8 mmol/L (3.5-5.1)
[2018-10-28 07:36] LABS: MAGNESIUM 1.8 mg/dL (1.8-2.4); PHOSPHORUS 3.4 mg/dL (2.5-4.9)
[2018-10-28 08:00] VITALS: BP 152/60
[2018-10-28] MEDS: ASPIRIN 81 MG TAB.CHEW PO SCH (08:44)
[2018-10-28] MEDS: LISINOPRIL 20 MG TAB PO SCH (08:45)
[2018-10-28] MEDS: GABAPENTIN 300 MG CAP PO SCH (08:45)
[2018-10-28] MEDS: CYCLOBENZAPRINE 10 MG TAB PO SCH ×3 (08:45→17:30)
[2018-10-28] MEDS: metFORMIN 500 MG TAB PO SCH ×2 (08:45→17:30)
[2018-10-28] MEDS: amLODIPine 5 MG TAB PO SCH (08:46)
[2018-10-28] MEDS: INSULIN LANTUS 100 UNITS/ML 10 ML VIAL SUBQ SCH (08:56)
--- NOTE | 2018-10-28 08:59 | NUR ---
ADMINISTERED MEDS TO PT ORDERED. TOLERATED WELL. PT AWAKE, FAMILY AT BEDSIDE. CALL LIGHT WITHIN REAH. INFORMED TO USE CALL LIGHT FOR ANY HELP. WILL CONTINUE TO MONITOR PT.
--- NOTE | 2018-10-28 12:00 | NUR ---
CHECKED ON PT. DID SWALLOW EVAL AT BEDSIDE ORDERED. PT TOLERATED APPLE SAUCE WELL. HAS DIFFICULTY OF SWALLOWING THE MEAL PORTION OF CHICKEN IN HER LUNCH. MD NOTIFIED. ALL SAFETY MEASURE IN PLACE. NO SIGN OF DISTRESS NOTED. WILL CONTINUE OT MONITOR PT.
[2018-10-28 12:31] VITALS: BP 112/52
[2018-10-28] MEDS: INSULIN LISPRO SLIDING SCALE 100 UNITS/ML VIAL SUBQ PRN ×2 (12:31→20:29)
--- NOTE | 2018-10-28 14:00 | NUR ---
CHECKED ON PT. LYING ON HER. COMPLAINING OF NUMBNESS IN HER TONGUE . MD NOTIFIED. STATES HAS THAT SENSATION BEFORE. WILL KEEP MONITORING PT. DENIES ANY DISTRESS AT THIS TIME. ALL SAFETY MEASURE IN PLACE. WILL CONTINUE TO MONITOR PT.
[2018-10-28 16:00] VITALS: BP 138/57
--- NOTE | 2018-10-28 16:30 | NUR ---
CHECKED ON PT. LYING ON HER BED. BS 148. NORMAL VS. DENIES ANY PAIN. SAFETY MEASURE IN PLACE. FAMILY AT BEDSIDE. WILL CONTINUE TO MONITOR PT.
--- NOTE | 2018-10-28 19:20 | NUR ---
ENDORSED PT TO PM NURSE AT BEDSIDE. PT IN STABLE CONDITION.
--- NOTE | 2018-10-28 19:22 | NUR ---
RECEIVED PT AWAKE TALKING TO AT BEDSIDE, VITAL SIGNS STABLE, DENIES ANY PAIN, NO SOB NOTED, IVF INFUSING WELL, PLAN OF CARE DISCUSSED, SAFETY MEASURES IN PLACE, CALL LIGHT WITHIN REACH.
[2018-10-28 20:00] VITALS: BP 140/59
[2018-10-28] MEDS: ATORVASTATIN 20 MG TAB PO SCH (20:22)
--- NOTE | 2018-10-28 20:40 | NUR ---
PT VOIDED FREELY ON BEDSIDE COMMODE, BLOOD SUGAR CHECKED WITH 214 RESULT, COVERAGE GIVEN, SNACK PROVIDED, DUE MEDS ADMINISTERED, ALL NEEDS ATTENDED.
--- NOTE | 2018-10-28 22:30 | NUR ---
AMBULATED TO BR WITH STANDBY ASSIST, VOIDED FREELY AND HAD A SMALL SOFT BM, DENIES PAIN, MONITORED CLOSELY.
[2018-10-29] VITALS: BP 99/47
--- NOTE | 2018-10-29 | NUR ---
PT SLEEPING, EASILY AROUSABLE, VITAL SIGNS TAKEN, BP ON THE LOW SIDE BUT STABLE, DENIES ANY PAIN, NO SOB NOTED, HOT TEA PROVIDED PER REQUEST, IVF INFUSING WELL, CONTINUE TO MONITOR CLOSELY
[2018-10-29 03:46] LABS: APPEARANCE,URINE HAZY (CLEAR); BILIRUBIN,URINE NEGATIVE (NEGATIVE); BLOOD, URINE NEGATIVE (NEGATIVE); COLOR,URINE YELLOW (YELLOW); LEUKOCYTE ESTERASE ,URINE 2+ (NEGATIVE); NITRITE, URINE NEGATIVE (NEGATIVE); UGLUCOSE NEGATIVE (NEGATIVE)
[2018-10-29 03:54] LABS: BARBITURATE, URINE NEG. ng/ml (NEG <=200); BENZODIAZEPINE, URINE NEG. ng/mL (NEG <=200); CANNABINOID, URINE NEG. ng/mL (NEG <=50); COCAINE, URINE NEG. ng/mL (NEG <=300); OPIATE, URINE NEG. ng/mL (NEG <=2000); PHENCYCLIDINE SCREEN,URINE NEG. ng/mL (NEG <=25)
[2018-10-29 04:00] VITALS: BP 120/48
[2018-10-29 04:09] LABS: RBC,URINE 0-5 (RARE) /HPF (0-5); WBC,URINE 60-80 /HPF (0-5)
[2018-10-29] MEDS: PANTOPRAZOLE 40 MG TABEC PO SCH (05:47)
--- NOTE | 2018-10-29 05:50 | NUR ---
BLOOD SUGAR CHECKED WITH 103 RESULT, DUE PO PROTONIX TAKEN, DENIES PAIN AND NO SOB NOTED, IVF INFUSING WELL, MONITORED CLOSELY.
[2018-10-29] MEDS: BLOOD GLUCOSE MONITORING 1 DEV DEV FS SCH ×2 (06:32→11:30)
--- NOTE | 2018-10-29 07:21 | NUR ---
PT COMPLAINED OF SOB DURING AM LAB DRAW, PT PUT ON O2 AT 2L VIA NASAL CANNULA, PT CAN SPEAK ON FULL SENTENCES, NO DISTRESS NOTED, HOB ELEVATED, BEDSIDE REPORT GIVEN TO RN SITAL FOR CONTINUITY OF CARE.
--- NOTE | 2018-10-29 07:22 | NUR ---
RECEIVED REPORT FROM PM NURSE AT BEDSIDE. PT LYING ON BED, ON NC 2LPM FOR COMPLAIN OF SOB. CALL LIGHT WITHIN REACH. UPDATED BOARD AND INTRODUCED ANN. DENIES ANY CHEST PAIN. INFORMED TO USE CALL LIGHT FOR ANY HELP. WILL CONTINUE TO MONITOR PT.
[2018-10-29 07:51] LABS: BASOPHILS # (AUTO) 0.1 K/uL (0.00-0.22); BASOPHILS % (AUTO) 0.6 % (0.0-2.0); EOSINOPHILS # (AUTO) 0.5 K/uL (0-0.4); EOSINOPHILS % (AUTO) 4.2 % (0.0-4.0); HEMATOCRIT 28.8 % (36-48); HEMOGLOBIN 8.9 g/dL (12.0-16.0); LYMPHOCYTES # (AUTO) 2.3 K/uL (2.5-16.5); LYMPHOCYTES % (AUTO) 21.1 % (20.5-51.1); MEAN CORPUSCULAR HEMOGLOBIN 23 pg (27-31); MEAN CORPUSCULAR HGB CONC 31 g/dL (33-37); MEAN CORPUSCULAR VOLUME 73.3 fL (80-94); MONOCYTES % (AUTO) 8.8 % (1.7-9.3); NEUTROPHILS # (AUTO) 7.2 K/uL (1.8-7.7); NEUTROPHILS % (AUTO) 65.3 % (42.2-75.2); PLATELET COUNT (AUTO) 425 K/uL (140-450); RED BLOOD CELL COUNT(AUTO) 3.93 MIL/uL (4.20-5.40); RED CELL DISTRIBUTION WIDTH 17.4 % (11.6-13.7); WHITE BLOOD COUNT (AUTO) 11.1 K/uL (4.8-10.8)
[2018-10-29 07:59] LABS: ANION GAP 7.9 (8-16); CARBON DIOXIDE 27.4 mmol/L (21-32); CREATININE 1.1 mg/dL (0.6-1.3); POTASSIUM 5.3 mmol/L (3.5-5.1)
[2018-10-29 08:00] VITALS: BP 135/60
[2018-10-29 08:02] LABS: MAGNESIUM 1.9 mg/dL (1.8-2.4)
[2018-10-29] MEDS ORDERED: ALBU0.0912 IH (08:18)
[2018-10-29] MEDS: GABAPENTIN 300 MG CAP PO SCH (09:19)
[2018-10-29] MEDS: LISINOPRIL 20 MG TAB PO SCH (09:19)
[2018-10-29] MEDS: metFORMIN 500 MG TAB PO SCH (09:19)
[2018-10-29] MEDS: amLODIPine 5 MG TAB PO SCH (09:20)
[2018-10-29] MEDS: METOPROLOL 25 MG TAB PO SCH (09:20)
[2018-10-29] MEDS: CYCLOBENZAPRINE 10 MG TAB PO SCH ×2 (09:21→13:22)
[2018-10-29] MEDS: ASPIRIN 81 MG TAB.CHEW PO SCH (09:21)
[2018-10-29] MEDS ORDERED: SODIUM POLYSTYRENE 15 GM/60 ML UDBTL PO SCH (09:30)
[2018-10-29] MEDS: INSULIN LANTUS 100 UNITS/ML 10 ML VIAL SUBQ SCH (09:38)
[2018-10-29 12:00] VITALS: BP 123/83
[2018-10-29] MEDS ORDERED: CEPH-1019 PO (12:28)
[2018-10-29] MEDS ORDERED: LACT10CA1 PO (12:29)
[2018-10-29] MEDS ORDERED: LANTUS SUBQ (12:34)
[2018-10-29] MEDS: INSULIN LISPRO SLIDING SCALE 100 UNITS/ML VIAL SUBQ PRN (12:44)
--- NOTE | 2018-10-29 14:45 | NUR ---
PT LEFT THE HOSPITAL WITH ALL HER BELONGINGS AND DISCHARGE PACKET. DISCHARGE INSTRUCTION PROVIDED, VERBALIZED UNDERSTANDING. PT WENT HOME WITH FAMILY MEMBER. PT STABLE AT TIME OF DISCHARGE.
== END 2018-10-29 14:45 | disposition home or self-care (01) | DRG 205 ==
LOC: MED 17:48 → MTU 20:14
PROVIDERS: ADMIT General Practice; ATTEND General Practice
DX: M94.0 Chondrocostal junction syndrome [Tietze] (principal); N17.0 Acute kidney failure with tubular necrosis; E87.1 Hypo-osmolality and hyponatremia; E44.1 Mild protein-calorie malnutrition; K21.9 Gastro-esophageal reflux disease without esophagitis; E11.65 Type 2 diabetes mellitus with hyperglycemia; Z68.24 Body mass index [BMI] 24.0-24.9, adult; Z88.0 Allergy status to penicillin; Z88.2 Allergy status to sulfonamides; Z88.8 Allergy status to other drugs, medicaments and biological substances; Z88.1 Allergy status to other antibiotic agents; Z91.041 Radiographic dye allergy status; J45.909 Unspecified asthma, uncomplicated; E11.9 Type 2 diabetes mellitus without complications; I10 Essential (primary) hypertension; E03.9 Hypothyroidism, unspecified; E11.43 Type 2 diabetes mellitus with diabetic autonomic (poly)neuropathy; K31.84 Gastroparesis; Z90.49 Acquired absence of other specified parts of digestive tract; Z90.710 Acquired absence of both cervix and uterus; Z98.51 Tubal ligation status
CPT/HCPCS: 36415; 71045; 80048; 80053; 80305; 81001; 82150; 82948; 83036; 83690; 83735; 83880; 84100; 84439; 84443; 84484; 85025; 85610; 85730; 87081; 87086; 87186; 93005; 93970; 96361; 96374; 99285; J0696; J1644; J1815; J3010; J7030; J7060; Q0092

== ENCOUNTER 2019-02-20 09:44 | Emergency (ER) | payer OTHER ==
[~2019-02-20] VITALS: Ht 162.6 cm; Wt 68.7 kg
[~2019-02-20 09:44] MED LIST changes: +CEPH-1019 PO; -FLOR250 PO; -NITR100C7 PO; -ONDA4TAB PO; -SULF-58 PO
[2019-02-20 09:46] VITALS: BP 166/66
--- NOTE | 2019-02-20 09:54 | NUR ---
PT AMB WITH CANE TO BED 4
--- NOTE | 2019-02-20 09:55 | NUR ---
BIB . AAO X4 C/O NAUSEA, VOMITING, GENERALIZED ABDOMINAL PAIN RADIATING TO BACK X 2 WEEKS & C/O CONSTIPATED, PAINFUL URINATION. LAST BM X YESTEDAY. LAST FOOD INTAKE YESTERDAY NIGHT. PT WAS SEEN BY PCP ON 01/18/2019 AND WAS PRESCRIBED PANTOPRAZOLE 20 MG TO BE TAKEN 1 TAB DAILY BY MOUTH. PER PT PRESCRIBED MED DOESN'T WORK. ER TO EVALUATE PT.
--- NOTE | 2019-02-20 10:15 | NUR ---
DR JAMES AT BEDSIDE FOR PT EVAL
[2019-02-20] MEDS ORDERED: NACL 0.9% 1,000 ML IV SCH (10:19)
[2019-02-20] MEDS ORDERED: ONDANSETRON 4 MG/2 ML VIAL IVP ONE (10:20)
[2019-02-20] MEDS ORDERED: FAMOTIDINE 20 MG/2 ML VIAL IVP ONE (10:20)
[2019-02-20 11:00] LABS: BASOPHILS # (AUTO) 0.1 K/uL (0.00-0.22); BASOPHILS % (AUTO) 0.7 % (0.0-2.0); EOSINOPHILS # (AUTO) 0.3 K/uL (0-0.4); EOSINOPHILS % (AUTO) 3.2 % (0.0-4.0); HEMATOCRIT 28.9 % (36-48); HEMOGLOBIN 9.1 g/dL (12.0-16.0); LYMPHOCYTES # (AUTO) 2.1 K/uL (2.5-16.5); LYMPHOCYTES % (AUTO) 21.4 % (20.5-51.1); MEAN CORPUSCULAR HEMOGLOBIN 22 pg (27-31); MEAN CORPUSCULAR HGB CONC 32 g/dL (33-37); MEAN CORPUSCULAR VOLUME 68.6 fL (80-94); MONOCYTES # (AUTO) 0.7 K/uL (0.8-1.0); MONOCYTES % (AUTO) 6.9 % (1.7-9.3); NEUTROPHILS # (AUTO) 6.8 K/uL (1.8-7.7); NEUTROPHILS % (AUTO) 67.8 % (42.2-75.2); RED BLOOD CELL COUNT(AUTO) 4.21 MIL/uL (4.20-5.40); RED CELL DISTRIBUTION WIDTH 16.5 % (11.6-13.7)
[2019-02-20 11:05] LABS: ANION GAP 11.4 (8-16); CARBON DIOXIDE 27.6 mmol/L (21-32); CREATININE 1.3 mg/dL (0.6-1.3)
[2019-02-20 11:11] LABS: TOTAL BILIRUBIN 0.2 mg/dL (0.0-1.0)
[2019-02-20 11:15] LABS: PLATELET COUNT (AUTO) 591 K/uL (140-450)
[2019-02-20] MEDS ORDERED: fentaNYL 0.05 MG/ML VIAL IVP ONE (11:40)
--- NOTE | 2019-02-20 11:40 | NUR ---
URINE OBTAINED FROM PT. CALLED LAB FOR WARP BLEACHING VAT TENDER.
--- NOTE | 2019-02-20 11:40 | NUR ---
ELEVATED B/P 203/[address] JAMES.
--- NOTE | 2019-02-20 12:06 | NUR ---
DR JAMES AT BEDSIDE FOR PT RE EVALUATION
[2019-02-20 12:11] LABS: APPEARANCE,URINE CLEAR (CLEAR); BILIRUBIN,URINE NEGATIVE (NEGATIVE); BLOOD, URINE NEGATIVE (NEGATIVE); COLOR,URINE YELLOW (YELLOW); LEUKOCYTE ESTERASE ,URINE NEGATIVE (NEGATIVE); NITRITE, URINE NEGATIVE (NEGATIVE); UGLUCOSE TRACE (NEGATIVE)
[2019-02-20 12:25] VITALS: BP 145/62
--- NOTE | 2019-02-20 12:25 | NUR ---
Patient discharged with v/s stable. Written and verbal after care instructions given and explained. Patient alert, oriented and verbalized understanding of instructions. Ambulatory with steady gait. All questions addressed prior to discharge. ID band removed. Patient advised to follow up with PMD. Rx of Zofran, Omeprazole given. Patient educated on indication of medication including possible reaction and side effects. Opportunity to ask questions provided and answered.
[2019-02-20 12:27] LABS: RBC,URINE NONE SEEN /HPF (0-5); WBC,URINE 0-5 /HPF (0-5)
== END 2019-02-20 12:25 | disposition home or self-care (01) ==
LOC: MED 09:44
DX: K21.9 Gastro-esophageal reflux disease without esophagitis (principal); J45.909 Unspecified asthma, uncomplicated; E11.9 Type 2 diabetes mellitus without complications; I10 Essential (primary) hypertension; E03.9 Hypothyroidism, unspecified; E78.00 Pure hypercholesterolemia, unspecified; Z90.49 Acquired absence of other specified parts of digestive tract; Z90.710 Acquired absence of both cervix and uterus; Z88.0 Allergy status to penicillin; Z88.8 Allergy status to other drugs, medicaments and biological substances; Z88.5 Allergy status to narcotic agent; Z88.1 Allergy status to other antibiotic agents; Z88.6 Allergy status to analgesic agent; Z79.4 Long term (current) use of insulin; Z79.82 Long term (current) use of aspirin; Z79.899 Other long term (current) drug therapy
CPT/HCPCS: 36415; 80053; 81001; 82948; 83690; 83880; 84484; 85025; 93005; 96374; 96375; 99284; J2405; J3010; J3490; J7030

== ENCOUNTER 2019-03-26 22:17 | Emergency (ER) | payer OTHER ==
[~2019-03-26] VITALS: Ht 157.5 cm; Wt 68.0 kg
[2019-03-26 22:22] VITALS: BP 163/71
--- NOTE | 2019-03-26 22:30 | NUR ---
EKG PERFORMED IN TRIAGE ROOM
--- NOTE | 2019-03-26 22:33 | NUR ---
PT TAKEN TO BED 10
--- NOTE | 2019-03-26 22:38 | NUR ---
PT CAME INTO ER WITH C/O STOMACH PAIN RADIATING TO CHEST AND BACK. PT STATES PAIN STARTED TODAY AFTER SELF ADMINISTERING HER INSULIN SUB Q. PAIN LEVEL 10/10 ADULT SCLE. STATES SHE FELT NAUSEOUS AND DIZINESS. A/OX4. SAMMARINESE SPEAKING. NO SIGNS OF RESP DISTRESS. ABLE TO MAKE NEEDS KNOWN. ABLE TO AMBULATE. STEADY GAIT. SKIN IS INTACT. SAFETY PREC IN PLACE. IS AT BEDSIDE. ER MD MADE AWARE OF STATUS. WILL CONTINUE TO MONITOR.
[2019-03-26] MEDS ORDERED: ONDANSETRON 4 MG/2 ML VIAL IVP ONE (22:40)
[2019-03-26] MEDS ORDERED: ASPIRIN 81 MG TAB.CHEW PO ONE (22:40)
[2019-03-26] MEDS ORDERED: NACL 0.9% 1,000 ML IV ONE (22:40)
--- NOTE | 2019-03-26 22:42 | NUR ---
X-Ray at bedside.
--- NOTE | 2019-03-26 22:44 | NUR ---
PT UNABLE TO GIVE URINE AT THIS TIME.
[2019-03-26 23:08] LABS: BASOPHILS # (AUTO) 0.1 K/uL (0.00-0.22); BASOPHILS % (AUTO) 0.7 % (0.0-2.0); EOSINOPHILS # (AUTO) 0.3 K/uL (0-0.4); HEMOGLOBIN 8.7 g/dL (12.0-16.0); LYMPHOCYTES % (AUTO) 25.4 % (20.5-51.1)
[2019-03-26 23:11] LABS: EOSINOPHILS % (AUTO) 2.6 % (0.0-4.0); MEAN CORPUSCULAR HEMOGLOBIN 21 pg (27-31); MEAN CORPUSCULAR HGB CONC 31 g/dL (33-37); MONOCYTES % (AUTO) 8.2 % (1.7-9.3); NEUTROPHILS # (AUTO) 7.4 K/uL (1.8-7.7); NEUTROPHILS % (AUTO) 63.1 % (42.2-75.2); PLATELET COUNT (AUTO) 481 K/uL (140-450); RED BLOOD CELL COUNT(AUTO) 4.12 MIL/uL (4.20-5.40); RED CELL DISTRIBUTION WIDTH 18.1 % (11.6-13.7); WHITE BLOOD COUNT (AUTO) 11.7 K/uL (4.8-10.8)
--- NOTE | 2019-03-26 23:14 | NUR ---
PT RETURN FROM CT
--- NOTE | 2019-03-26 23:20 | NUR ---
ASSISTED PT TO RESTROOM VIA WHEELCHAIR. AT BEDSIDE. BACK INTO BED, NO SIGNS OF DISTRESS.
[2019-03-26 23:21] LABS: ANION GAP 15.2 (8-16); CARBON DIOXIDE 25.2 mmol/L (21-32); CREATININE 1.4 mg/dL (0.6-1.3); POTASSIUM 5.4 mmol/L (3.5-5.1)
[2019-03-26 23:27] LABS: ALBUMIN 3.4 g/dL (3.4-5.0); TOTAL BILIRUBIN 0.1 mg/dL (0.0-1.0)
[2019-03-26] MEDS ORDERED: INSULIN REGULAR, HUMAN 100 UNIT/ML VIAL SUBQ ONE (23:30)
[2019-03-26] MEDS ORDERED: SODIUM POLYSTYRENE 15 GM/60 ML UDBTL PO ONE (23:30)
[2019-03-26] MEDS ORDERED: DEXTROSE 50% 50 ML SYR IVP ONE (23:30)
[2019-03-26] MEDS ORDERED: AZITHROMYCIN 1,000 MG in DEXTROSE 5% 500 ML IV ONE (23:35)
[2019-03-26 23:56] LABS: APPEARANCE,URINE CLOUDY (CLEAR); BILIRUBIN,URINE NEGATIVE (NEGATIVE); BLOOD, URINE NEGATIVE (NEGATIVE); COLOR,URINE YELLOW (YELLOW); LEUKOCYTE ESTERASE ,URINE 2+ (NEGATIVE); NITRITE, URINE POSITIVE (NEGATIVE); PH,URINE 6.5 (5.0-9.0); UGLUCOSE 1+ (NEGATIVE)
[2019-03-26] MEDS ORDERED: AZITHROMYCIN 500 MG INJ VIAL IV ONE (23:58)
[2019-03-27] MEDS ORDERED: NACL 0.9% 1,000 ML IV ONE ×2 (00:20→01:30)
[2019-03-27 00:21] LABS: RBC,URINE 0-5 /HPF (0-5); WBC,URINE TOO MANY TO COUNT /HPF (0-5)
[2019-03-27] MEDS ORDERED: AZTREONAM 1,000 MG in DEXTROSE 5% 50 ML IV ONE (00:25)
--- NOTE | 2019-03-27 00:40 | NUR ---
ASSISTED PT TO RESTROOM VIA WHEELCHAIR. BACK IN BED. BED IN LOWEST POSITION. WILL CONTINUE TO [facility].
[2019-03-27] MEDS ORDERED: ONDANSETRON 4 MG/2 ML VIAL IVP ONE (01:40)
--- NOTE | 2019-03-27 01:47 | NUR ---
PT MOVED TO BED 7
[2019-03-27] MEDS ORDERED: LEVO0.124 PO (02:23)
--- NOTE | 2019-03-27 03:21 | NUR ---
PT MOVED TO ER BED 1
--- NOTE | 2019-03-27 03:27 | NUR ---
PLACED ON VIA NC AT 2LPM. PT STATES S0B. O2SAT 97% @RA. ER NOTIFIED. CONTINUE TO MONITOR.
--- NOTE | 2019-03-27 03:27 | NUR ---
GAVE TELEPHONE REPORT TO [facility] RN ON PT.
[2019-03-27] MEDS ORDERED: ERTAPENEM SODIUM 1,000 MG in NACL 0.9% 50 ML IV ONE (03:30)
[2019-03-27] MEDS ORDERED: ERTAPENEM SODIUM 1,000 MG VIAL IV ONE (03:44)
--- NOTE | 2019-03-27 03:52 | NUR ---
[facility] AT BEDSIDE
--- NOTE | 2019-03-27 04:00 | NUR ---
[facility] IN ROUTE TO [facility]. VITAL SIGNS STABLE AT TIME OF DISCHARGE.
--- NOTE | 2019-03-27 04:00 | NUR ---
Patient to be transferred to [facility]. Is being transferred due to SEPSIS, UTI, PNA. Receiving facility has accepting physician DR PIERRE and available space ROOM [id number]. ER physician has signed transfer form. Patient or responsible constitution party has agreed to transfer and signed form. Patient belongings inventoried and will be sent with patient. Copy of nursing notes, lab reports, EKG, Physicians Orders and X-rays to be sent with patient. Report called to [employer] at receiving facility. [facility].
--- NOTE | 2019-03-27 04:02 | NUR ---
PT TAKEN BY BRET TO [facility]
[2019-03-27 04:05] VITALS: BP 171/82
--- NOTE | 2019-03-27 04:20 | NUR ---
CALLED [facility] TO LET KNOW [facility] IS IN ROUTE WITH PT. VITAL SIGNS STABLE.
== END 2019-03-27 04:02 | disposition short-term general hospital (02) ==
LOC: MED 22:17
DX: A41.9 Sepsis, unspecified organism (principal); N39.0 Urinary tract infection, site not specified; J18.9 Pneumonia, unspecified organism; K59.00 Constipation, unspecified; E87.5 Hyperkalemia; D64.9 Anemia, unspecified; N17.9 Acute kidney failure, unspecified; R07.9 Chest pain, unspecified; K21.9 Gastro-esophageal reflux disease without esophagitis; I10 Essential (primary) hypertension; E03.9 Hypothyroidism, unspecified; J45.909 Unspecified asthma, uncomplicated; E11.9 Type 2 diabetes mellitus without complications; Z90.89 Acquired absence of other organs; Z90.49 Acquired absence of other specified parts of digestive tract; Z88.0 Allergy status to penicillin; Z88.1 Allergy status to other antibiotic agents; Z88.5 Allergy status to narcotic agent; Z88.8 Allergy status to other drugs, medicaments and biological substances; Z90.710 Acquired absence of both cervix and uterus; Z79.4 Long term (current) use of insulin; Z79.2 Long term (current) use of antibiotics; Z79.82 Long term (current) use of aspirin; Z79.84 Long term (current) use of oral hypoglycemic drugs
CPT/HCPCS: 36415; 71045; 74176; 80053; 81001; 83605; 83690; 84484; 85025; 87040; 87086; 87186; 93005; 96365; 96366; 96372; 96375; 99285; J0456; J1335; J1815; J2405; J3490; J7030; J7060; Q0092; 99284; 99291

== ENCOUNTER 2019-10-06 11:43 | Emergency (ER) | payer OTHER ==
[~2019-10-06] VITALS: Ht 157.5 cm; Wt 68.0 kg
[2019-10-06 11:43] VITALS: BP 113/61
[~2019-10-06 11:43] MED LIST changes: +LEVO0.124 PO
--- NOTE | 2019-10-06 11:43 | NUR ---
PT BIBA ALS TO ER BED 10
--- NOTE | 2019-10-06 12:01 | NUR ---
64 Y/O F BIBA FOR CHEST PAIN 02/26 WITH DIZZINESS X1 DAY. PT STATES THE PAIN/PRESSURE BEGAN YESTERDAY. PT NEUROLOGICAL ASSESSMENT WNL, EYES PERLLA LESS THAN 3, NO ARM DRIFT, EQUAL HAND HALAL BUTCHER STRENGTH. PT VSS, OXYGEN LEVEL 98%. PT HAS 20 G IV LT HAND PUT IN BY AMBULANCE WITH 1000ML NS RUNNING. PT ON MONITOR, BED LOWERED, SIDE RAIL X [address] AT BEDSIDE. ALLERGIES: PENICILLIN, IODINE, LEVOFLOXACIN, LIDOCAINE.
--- NOTE | 2019-10-06 12:04 | NUR ---
BLOOD SUGAR CHECK BY AMBULANCE WAS 280. PT STATES SHE HAD JUST EATEN A SANDWHICH.
--- NOTE | 2019-10-06 12:05 | NUR ---
DR LAWS AT BEDSIDE EXAMINING PATIENT.
[2019-10-06] MEDS ORDERED: NACL 0.9% 500 ML IV SCH (12:16)
[2019-10-06] MEDS ORDERED: ASPIRIN 81 MG TAB.CHEW PO ONE (12:20)
[2019-10-06] MEDS ORDERED: KETOROLAC 30 MG/ML VIAL IVP ONE (12:20)
--- NOTE | 2019-10-06 12:46 | NUR ---
PT LEFT FOR VISUAL ACUITY TEST BY WHEELCHAIR.
--- NOTE | 2019-10-06 12:50 | NUR ---
X-RAY TECH AT BEDSIDE PERFORMING ORDERED TEST.
[2019-10-06 12:52] LABS: BASOPHILS # (AUTO) 0.1 K/uL (0.00-0.22); BASOPHILS % (AUTO) 0.6 % (0.0-2.0); EOSINOPHILS # (AUTO) 0.1 K/uL (0-0.4); EOSINOPHILS % (AUTO) 1.4 % (0.0-4.0); HEMATOCRIT 32.4 % (36-48); HEMOGLOBIN 9.9 g/dL (12.0-16.0); LYMPHOCYTES # (AUTO) 1.2 K/uL (2.5-16.5); LYMPHOCYTES % (AUTO) 11.4 % (20.5-51.1); MEAN CORPUSCULAR HEMOGLOBIN 23 pg (27-31); MEAN CORPUSCULAR HGB CONC 31 g/dL (33-37); MEAN CORPUSCULAR VOLUME 73.6 fL (80-94); MONOCYTES # (AUTO) 0.5 K/uL (0.8-1.0); NEUTROPHILS # (AUTO) 8.8 K/uL (1.8-7.7); NEUTROPHILS % (AUTO) 81.6 % (42.2-75.2); PLATELET COUNT (AUTO) 416 K/uL (140-450); RED CELL DISTRIBUTION WIDTH 16.4 % (11.6-13.7); WHITE BLOOD COUNT (AUTO) 10.7 K/uL (4.8-10.8)
[2019-10-06 13:01] LABS: ANION GAP 12.6 (8-16); CARBON DIOXIDE 26.4 mmol/L (21-32); CREATININE 1.3 mg/dL (0.6-1.3)
[2019-10-06 13:17] LABS: ALBUMIN 3.1 g/dL (3.4-5.0); TOTAL BILIRUBIN 0.2 mg/dL (0.0-1.0)
--- NOTE | 2019-10-06 13:42 | NUR ---
PATIENT TO RESTROOM BY WHEELCHAIR TO GIVE UA WITHOUT DIFICULTY.
[2019-10-06] MEDS ORDERED: LEVO0.114 PO (14:13)
[2019-10-06] MEDS ORDERED: INSU100I7 SQ (14:13)
[2019-10-06] MEDS ORDERED: LORA10TA19 PO (14:13)
[2019-10-06] MEDS ORDERED: ALBU0.0912 IH (14:13)
--- NOTE | 2019-10-06 14:52 | NUR ---
PT TO RESTROOM BY WHEELCHAIR WITHOUT DIFFICULTY.
[2019-10-06 14:53] LABS: BILIRUBIN,URINE NEGATIVE (NEGATIVE); BLOOD, URINE NEGATIVE (NEGATIVE); LEUKOCYTE ESTERASE ,URINE 1+ (NEGATIVE); NITRITE, URINE NEGATIVE (NEGATIVE); PH,URINE 5.5 (5.0-9.0); UGLUCOSE 3+ (NEGATIVE)
[2019-10-06 14:56] LABS: APPEARANCE,URINE HAZY (CLEAR); COLOR,URINE STRAW (YELLOW)
--- NOTE | 2019-10-06 15:02 | NUR ---
PT RESTING COMFORTABLY, VSS, BREATHING REGULAR. FAMILY AT BEDSIDE. PT INFORMED WAITING FOR TEST RESULTS.
[2019-10-06 15:03] LABS: RBC,URINE NONE SEEN /HPF (0-5); WBC,URINE 0-5 /HPF (0-5)
--- NOTE | 2019-10-06 16:51 | NUR ---
REPORT CALLED TO ANGELES MOORE AT [facility] [phone]. ALL QUESTIONS ANSWERED, PT TO ARRIVE AROUND 1730.
[2019-10-06 18:36] VITALS: BP 147/62
--- NOTE | 2019-10-06 18:37 | NUR ---
Patient discharged with v/s stable to [facility] by ambulance. Written and verbal after care instructions given and explained. Patient verbalized understanding. Ambulance Transport with to skilled nursing. All questions addressed prior to discharge. Advised to follow up with PMD.
== END 2019-10-06 18:40 | disposition short-term general hospital (02) ==
LOC: MED 11:43
DX: R07.89 Other chest pain (principal); E11.9 Type 2 diabetes mellitus without complications; I10 Essential (primary) hypertension; J45.909 Unspecified asthma, uncomplicated; K21.9 Gastro-esophageal reflux disease without esophagitis; E78.00 Pure hypercholesterolemia, unspecified; Z90.49 Acquired absence of other specified parts of digestive tract; Z79.899 Other long term (current) drug therapy; Z88.0 Allergy status to penicillin; Z88.5 Allergy status to narcotic agent; Z88.1 Allergy status to other antibiotic agents; Z88.8 Allergy status to other drugs, medicaments and biological substances
CPT/HCPCS: 36415; 71045; 80053; 81001; 82948; 83605; 83880; 84484; 85025; 85610; 85730; 87040; 87086; 93005; 96374; 99285; J1885; J7030; Q0092

== ENCOUNTER 2019-11-26 07:35 | Inpatient (IN) | payer OTHER ==
[~2019-11-26] VITALS: Ht 157.5 cm; Wt 73.9 kg
[2019-11-26 07:35] VITALS: BP 175/70
[~2019-11-26 07:35] MED LIST changes: +ALBU0.0912 IH; -ALBU3SOL83 IH; -AMLO2.5T PO; -ASPI-1173 PO; -BLOO1STR56 FS; -CEPH-1019 PO; -HUMSLIDE SUBQ; +INSU100I7 SQ; -LACT10CA1 PO; -LANTUS SUBQ; +LEVO0.114 PO; -LEVO0.124 PO; +LORA10TA19 PO; -METF1000 PO; -METO25TA PO; -PANT40EC28 PO
--- NOTE | 2019-11-26 07:37 | NUR ---
Patient ambulated to bed 8 with family. RN evaluating patient at bedside.
--- NOTE | 2019-11-26 07:40 | NUR ---
C/O LT LQABD PAIN, N/V SOB X 1DAY, ACCU 201. PT DENIES N/V/D; SKIN IS INTACT, PINK/WARM/DRY; AAOX4, PERRL, WITH EVEN AND STEADY GAIT; LUNGS CLEAR BL, BREATHING LABORED; HR EVEN AND REGULAR, BL PERIPHERAL PULSES PRESENT; BS ACTIVE X4, LT LOW TENDERNESS TO PALPATION. PT DENIES ANY FEVER, CP OR COUGH AT THIS TIME; PT STATES 10/10 PAIN AT THIS TIME; VSS; PATIENT POSITIONED FOR COMFORT; HOB ELEVATED; BEDRAILS UP X2; BED DOWN.. HX-PNA,HTN,HIGH CHOL,ANEMIA
--- NOTE | 2019-11-26 08:13 | NUR ---
Dr. Paredes is evaluating the patient at bedside.
[2019-11-26] MEDS ORDERED: KETOROLAC 30 MG/ML VIAL IVP ONE (08:20)
[2019-11-26] MEDS ORDERED: NACL 0.9% 1,000 ML IV ONE (08:20)
[2019-11-26] MEDS ORDERED: ONDANSETRON 4 MG/2 ML VIAL IVP ONE (08:20)
[2019-11-26 08:58] LABS: BASOPHILS # (AUTO) 0.2 K/uL (0.00-0.22); BASOPHILS % (AUTO) 1.1 % (0.0-2.0); EOSINOPHILS # (AUTO) 0.1 K/uL (0-0.4); EOSINOPHILS % (AUTO) 0.4 % (0.0-4.0); HEMATOCRIT 28.1 % (36-48); HEMOGLOBIN 8.6 g/dL (12.0-16.0); LYMPHOCYTES # (AUTO) 0.7 K/uL (2.5-16.5); LYMPHOCYTES % (AUTO) 4.8 % (20.5-51.1); MEAN CORPUSCULAR HEMOGLOBIN 22 pg (27-31); MEAN CORPUSCULAR HGB CONC 30 g/dL (33-37); MEAN CORPUSCULAR VOLUME 71.3 fL (80-94); MONOCYTES # (AUTO) 0.9 K/uL (0.8-1.0); NEUTROPHILS # (AUTO) 13.4 K/uL (1.8-7.7); NEUTROPHILS % (AUTO) 87.7 % (42.2-75.2); PLATELET COUNT (AUTO) 465 K/uL (140-450); RED BLOOD CELL COUNT(AUTO) 3.95 MIL/uL (4.20-5.40); RED CELL DISTRIBUTION WIDTH 18.1 % (11.6-13.7)
--- NOTE | 2019-11-26 09:12 | NUR ---
STATES DECREASE IN PAIN AFTER TORADOL, /. NO NAUSEA AT THIS TIME
[2019-11-26 09:15] LABS: ALBUMIN 3.3 g/dL (3.4-5.0); ANION GAP 13.2 (8-16); CARBON DIOXIDE 25.3 mmol/L (21-32); CREATININE 1.3 mg/dL (0.6-1.3); POTASSIUM 4.5 mmol/L (3.5-5.1); TOTAL BILIRUBIN 0.3 mg/dL (0.0-1.0)
[2019-11-26 09:21] LABS: WHITE BLOOD COUNT (AUTO) 15.3 K/uL (4.8-10.8)
[2019-11-26] MEDS ORDERED: ALBUTEROL 0.083% 2.5 MG/3 ML NEBU INH ONE (09:45)
[2019-11-26] MEDS ORDERED: methylPREDNISolone SS 125 MG/2 ML VIAL IVP ONE (09:45)
[2019-11-26] MEDS ORDERED: IPRATROPIUM 0.02% 0.5 MG/2.5 ML NEBU INH ONE (09:45)
[2019-11-26] MEDS ORDERED: fentaNYL 0.05 MG/ML VIAL IVP ONE (09:45)
--- NOTE | 2019-11-26 10:02 | NUR ---
PT STATES HAVING MORE PAIN WHICH AFFECTS HER BREATHING, INFORMED DR. DAVIS. WILL CONTINUE TO MONITOR .
--- NOTE | 2019-11-26 10:05 | NUR ---
Breathing treatment administered by respiratory therapist at bedside.
[2019-11-26] MEDS ORDERED: ASPIRIN 81 MG TAB.CHEW PO ONE (10:15)
[2019-11-26] MEDS: FUROSEMIDE 40 MG/4 ML VIAL IVP SCH ×2 (10:18→10:21)
--- NOTE | 2019-11-26 11:44 | NUR ---
OFF SUPPLEMENTAL OXYGEN BY Yanira BROOKE/RN FOR ABG
--- NOTE | 2019-11-26 11:48 | NUR ---
PT SITTING IN POSITION OF COMFORT. BED LOW AND LOCKED, SIDERAILS UP.
--- NOTE | 2019-11-26 11:50 | NUR ---
RESPIRATORY AT BEDSIDE
--- NOTE | 2019-11-26 11:54 | NUR ---
ABG DONE PRESSURE APPLIED TO PUNCTURE SITE NO EVIDENCE OF HEMATOMA
[2019-11-26] MEDS ORDERED: DEXTROSE 50% 50 ML SYR IVP PRN (12:30)
[2019-11-26] MEDS ORDERED: ONDANSETRON 4 MG/2 ML VIAL IVP PRN (12:30)
[2019-11-26] MEDS ORDERED: ALBUTEROL SULFATE/IPRATROPIU 3 ML SOL IH PRN (12:30)
[2019-11-26] MEDS ORDERED: ACETAMINOPHEN 325 MG TAB PO PRN (12:30)
[2019-11-26] MEDS ORDERED: ALBUTEROL 0.083% 2.5 MG/3 ML NEBU INH PRN (12:30)
--- NOTE | 2019-11-26 12:44 | NUR ---
PT SITTING IN POSITION OF COMFORT, SIDERAILS UP, BED LOW AND LOCKED, FAMILY AT BEDSIDE. WILL CONTINUE TO MONITOR PT
--- NOTE | 2019-11-26 12:57 | NUR ---
Dr. Gonzalez is evaluating the patient at bedside.
[2019-11-26 13:02] LABS: BILIRUBIN,URINE NEGATIVE (NEGATIVE); BLOOD, URINE TRACE-I (NEGATIVE); COLOR,URINE YELLOW (YELLOW); LEUKOCYTE ESTERASE ,URINE NEGATIVE (NEGATIVE); NITRITE, URINE NEGATIVE (NEGATIVE); UGLUCOSE 1+ (NEGATIVE)
[2019-11-26 13:15] LABS: APPEARANCE,URINE HAZY (CLEAR); RBC,URINE 0-5 /HPF (0-5); WBC,URINE 0-5 /HPF (0-5)
[2019-11-26 14:10] VITALS: BP 136/65
--- NOTE | 2019-11-26 14:10 | NUR ---
Patient will be admitted to care of DR HILLIARD. Admited to TELE. Will go to room 106A. Belongings list completed. Report to ANGELES SORIANO.
[2019-11-26 15:10] VITALS: BP 136/50
[2019-11-26 16:00] VITALS: BP 129/60
[2019-11-26] MEDS: AZITHROMYCIN 500 MG in DEXTROSE 5% 250 ML IV SCH (16:08)
[2019-11-26] MEDS: BLOOD GLUCOSE MONITORING 1 DEV DEV FS SCH ×2 (16:38→20:26)
[2019-11-26] MEDS: IPRATROPIUM 0.02% 0.5 MG/2.5 ML NEBU INH SCH ×2 (16:58→20:19)
[2019-11-26] MEDS ORDERED: DOCUSATE SODIUM 100 MG GELCAP PO PRN (17:20)
[2019-11-26] MEDS ORDERED: INSULIN LISPRO 100 UNITS/ML VIAL SUBQ SCH (17:30)
--- NOTE | 2019-11-26 19:15 | NUR ---
RECEIVED PATIENT IN STABLE CONDITION FROM AM SHIFT NURSE FOR CONTINUITY OF CARE. RESPIRATIONS EVEN, SLIGHTLY LABORED. ON O2 2L VIA NC. ABDOMEN SOFT AND SLIGHTLY TENDER. C/O 6/10 ACHING ABDOMINAL PAIN. SKIN WARM, DRY. IV SITE NOTED TO RIGHT AC 20G PATENT, INTACT, INFUSING FLUIDS WELL. CALL LIGHT WITHIN REACH. WILL CONTINUE TO MONITOR.
--- NOTE | 2019-11-26 19:18 | NUR ---
PER REPORT FROM AM SHIFT NURSE, PATIENT WAS GIVEN COLACE TO HELP FACILITATE A SMOOTH BOWEL MOVEMENT. PATIENT HAS BEEN USING THE RESTROOM BUT HAS ONLY HAD SMALL BOWEL MOVEMENTS. BOWEL SOUNDS ACTIVE X4 QUADRANTS. PATIENT SAID SHE FEELS ABLE TO HAVE A BOWEL MOVEMENT BUT IT JUST TAKES SOME TIME FOR. ENCOURAGED DEEP BREATHING WELL REPOSITIONING TOLERATED. CALL LIGHT WITHIN REACH. WILL CONTINUE TO MONITOR.
[2019-11-26] MEDS: HYDROcodone/APAP 5/325 MG 1 TAB TAB PO PRN (19:44)
--- NOTE | 2019-11-26 19:44 | NUR ---
MEDICATED FOR ACHING ABDOMINAL PAIN 02/26. CALL LIGHT WITHIN REACH. WILL CONTINUE TO MONITOR.
[2019-11-26 20:00] VITALS: BP 133/66
[2019-11-26] MEDS: INSULIN LISPRO SLIDING SCALE 100 UNITS/ML VIAL SUBQ PRN (20:26)
--- NOTE | 2019-11-26 20:29 | NUR ---
PLACED PT ON 5L OXYMIZER. PT STATES SHE HAS SOB. SATS ON 4LNC WAS 95% HHNTX GIVEN PT FEELS BETTER POST HHNTX
--- NOTE | 2019-11-26 20:44 | NUR ---
REASSESSED PAIN LEVEL, PATIENT STATED NO RELIEF. PAGED DR. MENENDEZ, ELECTRONIC PAGE MAKEUP SYSTEM OPERATOR FOR DR. HILLIARD, FOR ORDERS.
[2019-11-26] MEDS: KETOROLAC 15 MG/ML VIAL IVP PRN (22:24)
--- NOTE | 2019-11-26 22:24 | NUR ---
NEW ORDERS FOR TORADOL FOR BREAKTHROUGH PAIN. MEDICATED PATIENT ORDERED FOR ABDOMINAL PAIN. CALL LIGHT WITHIN REACH. WILL CONTINUE TO MONITOR.
--- NOTE | 2019-11-26 23:24 | NUR ---
REASSESSED PATIENT'S PAIN LEVEL AT TOLERABLE PAIN LEVEL 11/26. REPOSITIONED PATIENT FOR COMFORT. CALL LIGHT WITHIN REACH. WILL CONTINUE TO MONITOR.
[2019-11-27] VITALS: BP 113/54
[2019-11-27] MEDS: IPRATROPIUM 0.02% 0.5 MG/2.5 ML NEBU INH SCH ×4 (01:29→19:33)
--- NOTE | 2019-11-27 01:41 | NUR ---
MADE ROUNDS. PATIENT IS ASLEEP. NO S/SX ACUTE DISTRESS. NO C/O PAIN. CALL LIGHT WITHIN REACH. WILL CONTINUE TO MONITOR.
--- NOTE | 2019-11-27 02:48 | NUR ---
PATIENT IS ASLEEP AND IN STABLE CONDITION. NO C/O PAIN. NO S/SX ACUTE DISTRESS. CALL LIGHT WITHIN REACH. WILL CONTINUE TO MONITOR.
[2019-11-27 04:00] VITALS: BP 118/73
--- NOTE | 2019-11-27 04:50 | NUR ---
MADE ROUNDS. PATIENT ASLEEP AND IN STABLE CONDITION. NO C/O PAIN. NO S/SX ACUTE DISTRESS. CALL LIGHT WITHIN REACH. WILL CONTINUE TO MONITOR.
[2019-11-27] MEDS: LEVOTHYROXINE 0.112 MG TAB PO SCH (05:57)
--- NOTE | 2019-11-27 06:22 | NUR ---
PATIENT ASLEEP AND IN STABLE CONDITION. NO C/O PAIN. NO S/SX ACUTE DISTRESS. DUE MEDS GIVEN. CALL LIGHT WITHIN REACH. WILL CONTINUE TO MONITOR.
[2019-11-27] MEDS: INSULIN LISPRO SLIDING SCALE 100 UNITS/ML VIAL SUBQ PRN ×4 (06:32→20:48)
[2019-11-27] MEDS: BLOOD GLUCOSE MONITORING 1 DEV DEV FS SCH ×4 (06:33→20:46)
[2019-11-27 07:19] LABS: BASOPHILS % (AUTO) 0.1 % (0.0-2.0); HEMATOCRIT 23.4 % (36-48); HEMOGLOBIN 7.1 g/dL (12.0-16.0); LYMPHOCYTES # (AUTO) 0.3 K/uL (2.5-16.5); MEAN CORPUSCULAR HEMOGLOBIN 22 pg (27-31); MEAN CORPUSCULAR HGB CONC 30 g/dL (33-37); MEAN CORPUSCULAR VOLUME 71.3 fL (80-94); MONOCYTES # (AUTO) 1.1 K/uL (0.8-1.0); MONOCYTES % (AUTO) 4.2 % (1.7-9.3); NEUTROPHILS % (AUTO) 94.7 % (42.2-75.2); PLATELET COUNT (AUTO) 388 K/uL (140-450); RED BLOOD CELL COUNT(AUTO) 3.28 MIL/uL (4.20-5.40); RED CELL DISTRIBUTION WIDTH 18.1 % (11.6-13.7)
--- NOTE | 2019-11-27 07:21 | NUR ---
ENDORSED PATIENT TO AM SHIFT NURSE IN STABLE CONDITION FOR CONTINUITY OF CARE.
--- NOTE | 2019-11-27 07:22 | NUR ---
RECEIVED PATIENT FROM WATER PURIFIER OPERATOR NURSE TYRONE FOR CONTINUITY OF CARE. PATIENT IS AAOX4. RESPIRATIONS EVEN AND UNLABORED, ON 4L O2 OXIMIZER, DENIES SOB. VISIBLE CHEST RISE NOTED. ON TELE MONITORING. IV IN THE RIGHT AC GAUGE 20 SALINE LOCK, PATENT AND INTACT. PATIENT IS AMBULATORY. PATIENT IS CONTINENT. BED IN LOW POSITION. CALL LIGHT IS WITHIN REACH. WILL CONTINUE TO MONITOR.
[2019-11-27 07:43] LABS: ALBUMIN 2.9 g/dL (3.4-5.0); ANION GAP 15.1 (8-16); CARBON DIOXIDE 23.4 mmol/L (21-32); CREATININE 1.8 mg/dL (0.6-1.3); MAGNESIUM 2.4 mg/dL (1.8-2.4); POTASSIUM 4.5 mmol/L (3.5-5.1); TOTAL BILIRUBIN 0.3 mg/dL (0.0-1.0)
[2019-11-27 08:00] VITALS: BP 119/50
--- NOTE | 2019-11-27 08:27 | NUR ---
PATIENT HAS BEEN SCREENED AND CATEGORIZED MODERATE NUTRITION RISK. PATIENT WILL BE SEEN WITHIN 3-5 DAYS OF ADMISSION. 11/29/19 12/01/[address]
[2019-11-27] MEDS: ASPIRIN 81 MG TAB.CHEW PO SCH (08:33)
[2019-11-27] MEDS: FUROSEMIDE 40 MG/4 ML VIAL IVP SCH (08:33)
--- NOTE | 2019-11-27 08:33 | NUR ---
GIVEN MORNING MEDICATIONS PO. LOVENOX IN THE ABDOMEN SUBQ. PLATELET IS 388. GIVEN MEDICATION EDUCATION. WILL CONTINUE TO MONITOR
[2019-11-27 09:05] LABS: WHITE BLOOD COUNT (AUTO) 26.4 K/uL (4.8-10.8)
[2019-11-27] MEDS: ENOXAPARIN 40 MG/0.4 ML SYR SUBQ SCH (09:16)
--- NOTE | 2019-11-27 09:59 | NUR ---
FAMILY AT BEDSIDE. DENIES PAIN AND SOB. BED IN LOW POSITION. CALL LIGHT IS WITHIN REACH. WILL CONTINUE TO MONITOR
[2019-11-27] MEDS: KETOROLAC 15 MG/ML VIAL IVP PRN (10:41)
--- NOTE | 2019-11-27 10:41 | NUR ---
ADMINISTERED TORADOL FOR PAIN 6/10 ABDOMINAL PAIN. EXPLAINED TO PATIENT MEDICATION AND SIDE EFFECTS. PATIENT VERBALIZED UNDERSTANDING. BED IN LOW POSITION. CALL LIGHT IS WITHIN REACH. WILL REASSESS PAIN.
--- NOTE | 2019-11-27 11:14 | NUR ---
BLOOD GLUCOSE CHECK: 181. WILL GIVE INSULIN COVERAGE
--- NOTE | 2019-11-27 11:41 | NUR ---
REASSESSED PAIN. PATIENT STATED 09/28. TOLERABLE PAIN. WILL CONTINUE TO MONITOR.
--- NOTE | 2019-11-27 11:48 | NUR ---
GIVEN INSULIN 2 UNITS SUBQ IN THE ABDOMEN. GIVEN MEDICATION EDUCATION. PATIENT VERBALIZED UNDERSTANDING. BED IN LOW POSITION. CALL LIGHT IS WITHIN REACH. WILL CONTINUE TO MONITOR.
[2019-11-27 12:00] VITALS: BP 114/44
--- NOTE | 2019-11-27 12:12 | NUR ---
VITAL SIGNS CHECK. BP IS 111/44. HR 94, TEMP 9798.1, O2SAT 96 ROOM AIR, RESP 19. DENIES PAIN. WILL CONTINUE TO MONITOR.
--- NOTE | 2019-11-27 13:20 | NUR ---
PATIENT IS RESTING AT THIS TIME. FAMILY AT BEDSIDE. DENIES PAIN. WILL CONTINUE TO MONITOR
--- NOTE | 2019-11-27 14:59 | NUR ---
HANG ROCEPHIN VIA IVPB. EXPLAINED MEDICATION. WILL CONTINUE TO MONITOR
--- NOTE | 2019-11-27 15:45 | NUR ---
NEW IV SITE IN THE LEFT FOREARM G20. FLUSHED WELL.
--- NOTE | 2019-11-27 15:51 | NUR ---
PARENTRABBI MADE A TELEPHONE CONSENT FOR SCHEDULED EGD TOMORROW. TWO RN WITNESSES SIGNED CONSENT PAPER Addendum: 11/27/19 at 1619 by Princess Geena Bedolla RN WRONG ENTRY. DISREGARD
[2019-11-27 16:00] VITALS: BP 123/53
[2019-11-27] MEDS: AZITHROMYCIN 500 MG in DEXTROSE 5% 250 ML IV SCH (16:26)
--- NOTE | 2019-11-27 16:26 | NUR ---
HANG AZITHROMYCIN VIA IVPB. EXPLAINED MEDICATION TO PATIENT AND FAMILY. BED IN LOW POSITION. CALL LIGHT IS WITHIN REACH. WILL CONTINUE TO MONITOR. INTERMITTENT NONPRODUCTIVE COUGH NOTED
--- NOTE | 2019-11-27 16:30 | NUR ---
BLOOD GLUCOSE CHECK: 188. WILL GIVE INSULIN COVERAGE
--- NOTE | 2019-11-27 17:14 | NUR ---
PATIENT IS AWAKE, NO SIGNS OF DISTRESS NOTED. BED IN LOW POSITION. CALL LIGHT IS WITHIN REACH. WILL CONTINUE TO MONITOR
--- NOTE | 2019-11-27 17:18 | NUR ---
GIVEN 2 UNITS OF INSULIN SUBQ IN THE LEFT UPPER ARM. EXPLAINED MEDICATION. PATIENT TOLERATED WELL. WILL CONTINUE TO MONITOR
--- NOTE | 2019-11-27 18:32 | NUR ---
PATIENT IS EATING DINNER AT THIS TIME.
--- NOTE | 2019-11-27 19:07 | NUR ---
ENDORSED PATIENT TO THE DRY CLEANING MANAGER NURSE FOR CONTINUITY OF CARE. PATIENT DENIES SOB. NO PAIN. PATIENT IS IN STABLE CONDITION
--- NOTE | 2019-11-27 19:13 | NUR ---
RECEIVED PATIENT IN STABLE CONDITION FROM AM SHIFT NURSE FOR CONTINUITY OF CARE. RESPIRATIONS EVEN, UNLABORED. CONTINUES ON O2 3L VIA OXYMIZER. IV SITE NOTED TO LEFT FOREARM 22G PATENT/INTACT, FLUSHES WELL. AT BEDSIDE. NO C/O PAIN. NO S/SX ACUTE DISTRESS. CALL LIGHT WITHIN REACH. WILL CONTINUE TO MONITOR.
--- NOTE | 2019-11-27 19:37 | NUR ---
RCV'D PT ON 5 L OXIMIZER. SPO2 IS 98% DECREASED TO 3 L. HHN TX GIVEN WITH NO ADVERSE REACTION. AT BEDSIDE. NO DISTRESS NOTED. WILL CONTINUE TO MONITOR.
[2019-11-27] MEDS: HYDROcodone/APAP 5/325 MG 1 TAB TAB PO PRN (19:45)
--- NOTE | 2019-11-27 19:45 | NUR ---
PATIENT C/O ACHING ABDOMINAL PAIN 02/26. MEDICATED ORDERED. WILL CONTINUE TO MONITOR.
[2019-11-27 20:00] VITALS: BP 128/57
--- NOTE | 2019-11-27 20:45 | NUR ---
REASSESSED PAIN LEVEL AT 0/10. PATIENT IS IN STABLE CONDITION. FAMILY IS AT BEDSIDE. NO S/SX ACUTE DISTRESS. CALL LIGHT WITHIN REACH. WILL CONTINUE TO MONITOR.
--- NOTE | 2019-11-27 22:54 | NUR ---
PATIENT AWAKE AND IN STABLE CONDITION. NO C/O PAIN. NO S/SX ACUTE DISTRESS. CALL LIGHT WITHIN REACH. WILL CONTINUE TO MONITOR.
[2019-11-28] VITALS: BP 119/60
--- NOTE | 2019-11-28 00:11 | NUR ---
MADE ROUNDS. PATIENT IS ASLEEP AND IN STABLE CONDITION. NO C/O PAIN. NO S/SX ACUTE DISTRESS. CALL LIGHT WITHIN REACH. WILL CONTINUE TO MONITOR.
[2019-11-28] MEDS: IPRATROPIUM 0.02% 0.5 MG/2.5 ML NEBU INH SCH ×3 (00:58→13:04)
--- NOTE | 2019-11-28 02:29 | NUR ---
PATIENT ASLEEP AND IN STABLE CONDITION. NO C/O PAIN. NO S/SX ACUTE DISTRESS. CALL LIGHT WITHIN REACH. WILL CONTINUE TO MONITOR.
[2019-11-28 04:00] VITALS: BP 120/63
--- NOTE | 2019-11-28 04:14 | NUR ---
MADE ROUNDS. PATIENT ASLEEP AND IN STABLE CONDITION. NO C/O PAIN. NO S/SX ACUTE DISTRESS. CALL LIGHT WITHIN REACH. WILL CONTINUE TO MONITOR.
[2019-11-28] MEDS: LEVOTHYROXINE 0.112 MG TAB PO SCH (05:33)
--- NOTE | 2019-11-28 06:07 | NUR ---
PATIENT ASLEEP AND IN STABLE CONDITION. NO C/O PAIN. NO S/SX ACUTE DISTRESS. CALL LIGHT WITHIN REACH. WILL CONTINUE TO MONITOR.
--- NOTE | 2019-11-28 07:15 | NUR ---
ENDORSED PATIENT IN STABLE CONDITION TO AM SHIFT NURSE FOR CONTINUITY OF CARE.
--- NOTE | 2019-11-28 07:22 | NUR ---
RECEIVED BEDSIDE REPORT FROM BISQUE KILN DRAWER NURSE, PT IS AWAKE AND ALERT, NO S/S OF ACUTE DISTRESS NOTED, PT IS ON 3L OXIMIZER. SKIN IS INTACT. IV SITE L FA 22 G, SALINE LOCKED. PT IS MAINLY GERMAN SPEAKING. COMMODE IS AT BEDSIDE. CALL LIGHT WITHIN REACH. WILL CONTINUE TO MONITOR.
[2019-11-28] MEDS: BLOOD GLUCOSE MONITORING 1 DEV DEV FS SCH ×3 (07:30→16:45)
[2019-11-28 08:00] VITALS: BP 129/60
[2019-11-28] MEDS: ENOXAPARIN 40 MG/0.4 ML SYR SUBQ SCH (09:00)
[2019-11-28] MEDS: ASPIRIN 81 MG TAB.CHEW PO SCH (10:05)
[2019-11-28] MEDS: FUROSEMIDE 40 MG/4 ML VIAL IVP SCH (10:08)
--- NOTE | 2019-11-28 10:20 | NUR ---
AM MEDS ADMINISTERED, PT TOLERATED WELL.
[2019-11-28] MEDS ORDERED: FURO-570 PO (11:52)
[2019-11-28] MEDS ORDERED: LEVO750T2 PO (11:52)
[2019-11-28 12:00] VITALS: BP 145/52
[2019-11-28] MEDS: HYDROcodone/APAP 5/325 MG 1 TAB TAB PO PRN ×2 (12:23→15:24)
[2019-11-28] MEDS: INSULIN LISPRO SLIDING SCALE 100 UNITS/ML VIAL SUBQ PRN (12:27)
--- NOTE | 2019-11-28 12:39 | NUR ---
MOTION PICTURES CARTOONIST DISCHARGE ASSESSMENT [facility] Patient: Shannen Camargo : 1955 Age/Sex: 64/F Unit#: [id number] Room/Bed: 106/A User: Jemma Bruce CM Date: 11/28/19 12:16 Type: CM: Discharge Planning Basic Screen: Yes High Risk DC Screen [place]: Kennycandis Sethi Relationship: Beni Pre-Admission Living Arrangements: Lives with Other Prior ADL Needs Assistance Healthcare Decision Maker: Patient Advance Directive No Patient/Family Have Educational Needs No Tentative Discharge Plan/Destination: Home Health Will require assistance post discharge: No Tentative Discharge Plan Summary: 64 y/o female pt admitted for SOB and minimal cough. Pt with hx asthma, hypertension, DM 2 and hypothyroidism. Sw met with pt at the bedside. Pt was a&o x4, mood and affect appropriate with the situation. Pt currently on 10L oxymizer. Pt admitted from home where she lives with and other family members. Pt reports she ambulates with a walker, has cane, shower chair at home. Pt reports needs some assistance with ADls provided by family. Pt was recently DC from [place] with services. Pt doesn't recall the name of the company. Pt stated she would like to return home upon DC. Signature: Jemma Bruce LCSW Date: Nov 28, 2019
--- NOTE | 2019-11-28 12:54 | NUR ---
PT VISITING WITH FAMILY MEMBERS AT BEDSIDE.
--- NOTE | 2019-11-28 14:29 | NUR ---
DISCHARGE PLANNING: CONTACTED JIL RIDLEY OF [facility] AT [phone] TO FOLLOW UP HOME O2. SHE STATED THAT PORTABLE O2 WILL BE DELIVERED AT THE BEDSIDE AND TANK WILL BE DELIVERED AT HOME. Addendum: 11/28/19 at 1655 by Apurva Katz PER JIL RIDLEY, THEY WILL BE THE ONE ARRANGING THE HOME HEALTH.
[2019-11-28 16:00] VITALS: BP 151/84
--- NOTE | 2019-11-28 16:40 | NUR ---
[facility] BROUGHT PT PORTABLE OXYGEN TANK.
[2019-11-28] MEDS: AZITHROMYCIN 500 MG in DEXTROSE 5% 250 ML IV SCH (16:45)
--- NOTE | 2019-11-28 18:00 | NUR ---
PT AND HER FAMILY WERE GIVEN DC INSTRUCTIONS AND EXPLAINED DC PRESCRIPTIONS. PT AND FAMILY VERBALIZED UNDERSTANDING. IV SITE AND WRIST BAND WERE REMOVED. PT WAS CONNECTED TO THE PORTABLE O2 TANK @ 3L/MIN. ALL BELONGINGS WERE TAKEN. PT LEFT IN STABLE CONDITION.
== END 2019-11-28 18:00 | disposition home or self-care (01) | DRG 193 ==
LOC: MED 07:35 → MTU 12:33 → OBSVTOIN 11-27 14:32
PROVIDERS: ADMIT Hospitalist; ATTEND Hospitalist
DX: J18.9 Pneumonia, unspecified organism (principal); J96.91 Respiratory failure, unspecified with hypoxia; J45.901 Unspecified asthma with (acute) exacerbation; N13.30 Unspecified hydronephrosis; I11.0 Hypertensive heart disease with heart failure; I50.9 Heart failure, unspecified; E03.9 Hypothyroidism, unspecified; E11.9 Type 2 diabetes mellitus without complications; K21.9 Gastro-esophageal reflux disease without esophagitis; E78.5 Hyperlipidemia, unspecified; D64.9 Anemia, unspecified; Z90.710 Acquired absence of both cervix and uterus; Z90.49 Acquired absence of other specified parts of digestive tract; Z88.5 Allergy status to narcotic agent; Z88.0 Allergy status to penicillin; Z88.8 Allergy status to other drugs, medicaments and biological substances; Z88.1 Allergy status to other antibiotic agents; Z91.041 Radiographic dye allergy status; Z79.899 Other long term (current) drug therapy
CPT/HCPCS: 96374; 96375; 99218; 99291; G0378; 36415; 36600; 71045; 80053; 81001; 82803; 82948; 83690; 83735; 83880; 84443; 84484; 85025; 87081; 93005; 94640; J0456; J0696; J1650; J1815; J1885; J1940; J2405; J2930; J3010; J7030; J7060; J7613; J7644; Q0092

== ENCOUNTER 2020-01-21 21:24 | Emergency (ER) | payer OTHER ==
[~2020-01-21] VITALS: Ht 157.5 cm; Wt 68.0 kg
[~2020-01-21 21:24] MED LIST changes: +FURO-570 PO; +LEVO750T2 PO
[2020-01-21 21:28] VITALS: BP 137/74
[2020-01-21] MEDS ORDERED: NACL 0.9% 1,000 ML IV ONE (22:09)
[2020-01-21] MEDS ORDERED: ONDANSETRON 4 MG/2 ML VIAL IVP ONE (22:10)
[2020-01-21] MEDS ORDERED: fentaNYL 0.05 MG/ML VIAL IVP ONE (22:10)
[2020-01-21 22:38] LABS: BASOPHILS # (AUTO) 0.1 K/uL (0.00-0.22); BASOPHILS % (AUTO) 1.2 % (0.0-2.0); EOSINOPHILS # (AUTO) 0.1 K/uL (0-0.4); EOSINOPHILS % (AUTO) 0.5 % (0.0-4.0); HEMATOCRIT 22.9 % (36-48); LYMPHOCYTES # (AUTO) 1.4 K/uL (2.5-16.5); LYMPHOCYTES % (AUTO) 13.5 % (20.5-51.1); MEAN CORPUSCULAR HEMOGLOBIN 21 pg (27-31); MEAN CORPUSCULAR HGB CONC 31 g/dL (33-37); MEAN CORPUSCULAR VOLUME 68.7 fL (80-94); MONOCYTES # (AUTO) 0.8 K/uL (0.8-1.0); MONOCYTES % (AUTO) 7.4 % (1.7-9.3); NEUTROPHILS # (AUTO) 8.1 K/uL (1.8-7.7); NEUTROPHILS % (AUTO) 77.4 % (42.2-75.2); PLATELET COUNT (AUTO) 415 K/uL (140-450); RED BLOOD CELL COUNT(AUTO) 3.33 MIL/uL (4.20-5.40); RED CELL DISTRIBUTION WIDTH 18.6 % (11.6-13.7); WHITE BLOOD COUNT (AUTO) 10.4 K/uL (4.8-10.8)
[2020-01-21 22:51] LABS: ALBUMIN 3.2 g/dL (3.4-5.0); ANION GAP 14.8 (8-16); CARBON DIOXIDE 23.5 mmol/L (21-32); CREATININE 2.3 mg/dL (0.6-1.3); TOTAL BILIRUBIN 0.4 mg/dL (0.0-1.0)
[2020-01-21 23:06] LABS: HEMOGLOBIN 7.1 g/dL (12.0-16.0)
[2020-01-21 23:09] LABS: POTASSIUM 5.3 mmol/L (3.5-5.1)
[2020-01-22] MEDS ORDERED: AMLO10TA PO (00:36)
[2020-01-22] MEDS ORDERED: FUROSEMIDE 40 MG/4 ML VIAL IVP SCH (01:10)
[2020-01-22] MEDS ORDERED: SODIUM ZIRCONIUM CYCLOSILICATE 10 GM POWD.PACK PO ONE (01:10)
[2020-01-22] MEDS ORDERED: ASPIRIN 325 MG TAB PO ONE (01:15)
[2020-01-22] MEDS ORDERED: ONDANSETRON 4 MG/2 ML VIAL ONE (02:49)
[2020-01-22] MEDS ORDERED: ONDANSETRON 4 MG/2 ML VIAL IVP ONE (03:35)
[2020-01-22 04:10] VITALS: BP 154/55
== END 2020-01-22 04:09 | disposition short-term general hospital (02) ==
LOC: MED 21:24
DX: R07.9 Chest pain, unspecified (principal); R06.00 Dyspnea, unspecified; E87.5 Hyperkalemia; R10.9 Unspecified abdominal pain; E07.9 Disorder of thyroid, unspecified; J90 Pleural effusion, not elsewhere classified; N28.9 Disorder of kidney and ureter, unspecified; I10 Essential (primary) hypertension; J45.909 Unspecified asthma, uncomplicated; K21.9 Gastro-esophageal reflux disease without esophagitis; Z90.49 Acquired absence of other specified parts of digestive tract; Z88.0 Allergy status to penicillin; Z88.1 Allergy status to other antibiotic agents; Z88.6 Allergy status to analgesic agent; Z88.4 Allergy status to anesthetic agent; Z79.899 Other long term (current) drug therapy
CPT/HCPCS: 36415; 71045; 74176; 80053; 83690; 83880; 84484; 85025; 93005; 96374; 96375; 99285; J1940; J2405; J3010; J7030; Q0092; 99284

== ENCOUNTER 2021-02-19 22:21 | Emergency (ER) | payer OTHER ==
[~2021-02-19] VITALS: Ht 157.5 cm; Wt 79.4 kg
[2021-02-19 22:21] VITALS: BP 133/74
[~2021-02-19 22:21] MED LIST changes: +AMLO10TA PO; -ATOR20TA40 PO; -LEVO750T2 PO; -LISI-420 PO
[2021-02-19 23:14] LABS: HEMATOCRIT 27.6 % (36-48); HEMOGLOBIN 8.8 g/dL (12.0-16.0); MEAN CORPUSCULAR HEMOGLOBIN 24 pg (27-31); MEAN CORPUSCULAR HGB CONC 32 g/dL (33-37); MEAN CORPUSCULAR VOLUME 74.9 fL (80-94); PLATELET COUNT (AUTO) 398 K/uL (140-450); RED BLOOD CELL COUNT(AUTO) 3.68 MIL/uL (4.20-5.40); RED CELL DISTRIBUTION WIDTH 15.7 % (11.6-13.7)
[2021-02-19 23:22] LABS: WHITE BLOOD COUNT (AUTO) 31.7 K/uL (4.8-10.8)
[2021-02-19 23:35] LABS: ANION GAP 13.7 (8-16); CREATININE 1.3 mg/dL (0.6-1.3); POTASSIUM 4.7 mmol/L (3.5-5.1); TOTAL BILIRUBIN 0.2 mg/dL (0.0-1.0)
[2021-02-19 23:36] LABS: ALBUMIN 2.8 g/dL (3.4-5.0)
[2021-02-19 23:42] LABS: LYMPHOCYTES % (MANUAL) 5 % (20-46); MONOCYTES % (MANUAL) 5 % (5-12)
[2021-02-19] MEDS ORDERED: CEFEPIME 500 MG in DEXTROSE 5% 50 ML IV ONE (23:50)
[2021-02-20] MEDS ORDERED: CEFEPIME 1,000 MG VIAL ONE ×2 (00:13→00:27)
[2021-02-20] MEDS ORDERED: fentaNYL citrate 0.05 MG/ML VIAL IVP ONE (04:05)
[2021-02-20 06:18] VITALS: BP 130/82
== END 2021-02-20 06:20 | disposition short-term general hospital (02) ==
LOC: MED 22:21
DX: J18.9 Pneumonia, unspecified organism (principal); D72.829 Elevated white blood cell count, unspecified; E11.9 Type 2 diabetes mellitus without complications; J45.909 Unspecified asthma, uncomplicated; I10 Essential (primary) hypertension; E07.9 Disorder of thyroid, unspecified; K21.9 Gastro-esophageal reflux disease without esophagitis; E78.00 Pure hypercholesterolemia, unspecified; Z88.0 Allergy status to penicillin; Z88.8 Allergy status to other drugs, medicaments and biological substances; Z88.5 Allergy status to narcotic agent; Z20.822 Contact with and (suspected) exposure to COVID-19
CPT/HCPCS: 36415; 71045; 80053; 83605; 83880; 84484; 85025; 87040; 87426; 93005; 96365; 96375; 99285; J0692; J3010

== ENCOUNTER 2022-10-06 00:40 | Inpatient (IN) | payer MEDICARE, OTHER ==
[~2022-10-06] VITALS: Ht 157.5 cm; Wt 77.1 kg
[2022-10-06 00:51] VITALS: BP 187/87
--- NOTE | 2022-10-06 00:55 | NUR ---
Dr. Lin examining patient in triage room.
--- NOTE | 2022-10-06 01:17 | NUR ---
Patient taken to bed 7 with her family.
--- NOTE | 2022-10-06 01:20 | NUR ---
Patient BIB by family from home. C/O shortness of breath x today. Patient reported, had shortness of breath and mid chest pain since 2300 PM. PMHx: CHF, DM, HLD, Hypothyroid and HTN
--- NOTE | 2022-10-06 01:26 | NUR ---
X-Ray at bedside.
[2022-10-06 01:38] LABS: BASOPHILS # (AUTO) 0.1 K/uL (0.00-0.22); BASOPHILS % (AUTO) 0.8 % (0.0-2.0); EOSINOPHILS # (AUTO) 0.3 K/uL (0-0.4); EOSINOPHILS % (AUTO) 2.5 % (0.0-4.0); HEMATOCRIT 29.6 % (36-48); HEMOGLOBIN 9.6 g/dL (12.0-16.0); LYMPHOCYTES # (AUTO) 1.9 K/uL (2.5-16.5); LYMPHOCYTES % (AUTO) 16.5 % (20.5-51.1); MEAN CORPUSCULAR HEMOGLOBIN 23 pg (27-31); MEAN CORPUSCULAR HGB CONC 32 g/dL (33-37); MONOCYTES # (AUTO) 0.8 K/uL (0.8-1.0); MONOCYTES % (AUTO) 7.1 % (1.7-9.3); NEUTROPHILS # (AUTO) 8.5 K/uL (1.8-7.7); NEUTROPHILS % (AUTO) 73.1 % (42.2-75.2); PLATELET COUNT (AUTO) 398 K/uL (140-450); RED BLOOD CELL COUNT(AUTO) 4.17 MIL/uL (4.20-5.40); RED CELL DISTRIBUTION WIDTH 16.3 % (11.6-13.7); WHITE BLOOD COUNT (AUTO) 11.6 K/uL (4.8-10.8)
[2022-10-06] MEDS ORDERED: methylPREDNISolone SS 125 MG in WATER STERILE 2 ML IV ONE (01:55)
[2022-10-06] MEDS ORDERED: ALBUTEROL 0.083% 2.5 MG/3 ML NEBU INH ONE (01:55)
[2022-10-06] MEDS ORDERED: hydrALAZINE 20 MG/ML VIAL IVP ONE (01:55)
[2022-10-06] MEDS ORDERED: MAG SULF 2000 MG/WATER PREMIX 50 ML IV ONE (01:55)
[2022-10-06 02:00] LABS: ANION GAP 11.3 (8-16); CREATININE 1.6 mg/dL (0.6-1.3); POTASSIUM 5.3 mmol/L (3.5-5.1)
--- NOTE | 2022-10-06 02:00 | NUR ---
Respiratory Therapist at bedside for respiratory intervention.
[2022-10-06 02:01] LABS: ALBUMIN 3.3 g/dL (3.4-5.0); TOTAL BILIRUBIN 0.2 mg/dL (0.0-1.0)
[2022-10-06] MEDS ORDERED: INSULIN REGULAR, HUMAN 100 UNIT/ML VIAL IVP ONE (02:45)
[2022-10-06 03:00] LABS: APPEARANCE,URINE SL CLOUDY (CLEAR); BILIRUBIN,URINE NEGATIVE (NEGATIVE); BLOOD, URINE NEGATIVE (NEGATIVE); COLOR,URINE YELLOW (YELLOW); LEUKOCYTE ESTERASE ,URINE TRACE (NEGATIVE); NITRITE, URINE POSITIVE (NEGATIVE); UGLUCOSE 2+ (NEGATIVE)
[2022-10-06 03:04] LABS: RBC,URINE 0-5 /HPF (0-5); WBC,URINE 16-25 (MOD) /HPF (0-5)
--- NOTE | 2022-10-06 03:14 | NUR ---
COVID-19 swab collected and sent to lab.
[2022-10-06] MEDS ORDERED: INSU100S45 SUBQ (03:21)
[2022-10-06] MEDS ORDERED: PANT40EC PO (03:21)
--- NOTE | 2022-10-06 03:21 | NUR ---
Med-Rec reviewed
[2022-10-06] MEDS ORDERED: cefTRIAXone 2,000 MG in DEXTROSE 5% 100 ML IV ONE (03:25)
[2022-10-06] MEDS ORDERED: cefTRIAXone 2,000 MG VIAL ONE (03:40)
--- NOTE | 2022-10-06 04:47 | NUR ---
Patient appears to be resting comfortably in bed. Respirations even and unlabored.
[2022-10-06] MEDS ORDERED: ACETAMINOPHEN 325 MG TAB PO PRN (05:00)
[2022-10-06] MEDS ORDERED: POTASSIUM CHLORIDE 10 MEQ TABER PO PRN (05:00)
[2022-10-06] MEDS ORDERED: MAGNESIUM OXIDE 400 MG TAB PO PRN (05:00)
[2022-10-06] MEDS ORDERED: AZITHROMYCIN 500 MG in DEXTROSE 5% 250 ML IV SCH (05:00)
[2022-10-06] MEDS ORDERED: AZITHROMYCIN 500 MG INJ VIAL IV ONE (05:30)
[2022-10-06] MEDS: methylPREDNISolone SS 40 MG/ML VIAL IVP SCH ×3 (06:00→18:04)
[2022-10-06] MEDS: BUDESONIDE 0.5 MG/2 ML NEBU INH SCH ×2 (07:08→20:21)
[2022-10-06] MEDS: ALBUTEROL SULFATE/IPRATROPIU 3 ML SOL IH SCH ×3 (07:08→20:21)
--- NOTE | 2022-10-06 07:10 | NUR ---
Received report from ANGELES Palomino. Assumed care at this time.
--- NOTE | 2022-10-06 07:11 | NUR ---
RT at bedside for breathing tx.
[2022-10-06] MEDS: DOCUSATE SODIUM 100 MG GELCAP PO SCH (09:18)
--- NOTE | 2022-10-06 09:52 | NUR ---
PATIENT HAS BEEN SCREENED AND CATEGORIZED MODERATE NUTRITION RISK. PATIENT WILL BE SEEN WITHIN 3-5 DAYS OF ADMISSION. REVIEWED BY PRABHAKAR SIMON RD
--- NOTE | 2022-10-06 10:21 | NUR ---
Ultrasound at bedside.
[2022-10-06] MEDS ORDERED: SODIUM ZIRCONIUM CYCLOSILICATE 10 GM POWD.PACK PO SCH (10:48)
[2022-10-06] MEDS: DOXYCYCLINE 100 MG CAP PO SCH ×2 (11:13→20:44)
[2022-10-06] MEDS: BLOOD GLUCOSE MONITORING 1 DEV DEV FS SCH ×3 (11:37→21:15)
--- NOTE | 2022-10-06 11:40 | NUR ---
Pt's BS is 537, per sliding scale, Dr. Duran was made aware, order given, via telephone, to give 20units of Humalog.
[2022-10-06] MEDS ORDERED: INSULIN LISPRO 100 UNITS/ML VIAL SUBQ SCH ×2 (12:00→18:00)
--- NOTE | 2022-10-06 15:20 | NUR ---
SATURATION 100% ON SUPPLEMENTAL OXYGEN AT 2 LPM VIA NC POST HHN THERAPY PLACED ON ROOM AIR MAURICIO/ED RN NOTIFIED
--- NOTE | 2022-10-06 16:14 | NUR ---
RT at bedside.
--- NOTE | 2022-10-06 16:34 | NUR ---
Patient will be admitted to care of Dr. Duran. Admited to TELE. Will go to room 106B. Belongings list completed. Report to ANGELES Adam.
--- NOTE | 2022-10-06 16:38 | NUR ---
Accu check of 434, paged Dr. Duran per sliding scale protocol. Awaiting call back, informed oncoming nurse.
[2022-10-06 16:40] VITALS: BP 152/61
--- NOTE | 2022-10-06 16:40 | NUR ---
ADMITTED A FEMALE 67 Y/O FROM ER VIA [facility] WITH THE CHIEF COMPLAINT OF SOB SINCE LAST NIGHT, DIAGNOSIS OF COPD EXACERBATION. INITIAL ASSESSMENT INITIATED. PATIENT IS ALERT AWAKE ORIENTED X 4, NOT IN ANY DISTRESS NOTED., PUT ON 2L NASAL CANNULA SATURATING 97%, TRIED TO REMOVED OXYGEN AND PATIENT REQUESTED TO PUT IT IN. SOB ON EXERTION NOTED. WITH HEPLOCK ON THE LEFT HAND G.22 DRY AND INTACT.PUT ON HEART MONITOR AND SHOWS SR WITH NO ECTOPY. ORIENTED TO THE ROOM, CALL LIGHT WITHIN REACH. WILL CONTINUE TO MONITOR.
--- NOTE | 2022-10-06 17:15 | NUR ---
Dr. Duran called back regarding pt's blood sugar, one time order given via telephone, endorsed to ANGELES Adam, to carry out order. Order placed.
--- NOTE | 2022-10-06 19:19 | NUR ---
REPORT GIVEN TO THE RADIATION CONTROL TECHNICIAN FOR CONTINUITY OF CARE. PATIENT IN STABLE CONDITION.
--- NOTE | 2022-10-06 19:35 | NUR ---
RECEIVED REPORT FROM DAY SHIFT NURSE FOR CONTINUITY OF CARE. PATIENT IS STABLE IN BED, A&O X4, PRIMARILY CANADIAN SPEAKING. PATIENT HAS NO COMPLAINTS OF PAIN AT THIS TIME. PATIENT IS ON 3L NASAL CANNULA, WITH NO APPARENT S/S OF DISTRESS. PATIENTS FAMILY IN ROOM REQUESTING THAT EVEN THOUGH THE PATIENTS O2 SAT IS WITHIN EXPECTED RANGE, SHE NEEDS THE 3L OTHERWISE SHE BECOMES DIZZY AND IS PRONE TO FALLING. PATIENT HAS A 22 GAUGE PERIPHERAL IV LOCATED IN THE LEFT WRIST. PATIENT'S SKIN IS INTACT, PATIENT IS BEDBOUND. ALL SAFETY MEASURES IN PLACE, BED AT LOWEST POINT, AND CALL LIGHT WITHIN REACH, ENCOURAGED TO USE IF ANY ASSISTANCE IS REQUIRED. WILL CONTINUE TO MONITOR.
[2022-10-06 20:00] VITALS: BP 133/55
--- NOTE | 2022-10-06 20:50 | NUR ---
SCHEDULED MEDICATIONS GIVEN. BLOOD GLUCOSE READING OF 354, 10 UNITS OF HUMALOG WAS ADMINISTERED IN THE RIGHT THIGH. WILL CONTINUE TO MONITOR.
[2022-10-06] MEDS: INSULIN LISPRO SLIDING SCALE 100 UNITS/ML VIAL SUBQ PRN (20:53)
--- NOTE | 2022-10-06 21:03 | NUR ---
PT RECENTLY TRANSFERRED FROM ER. WAS TOLD PT WAS ON RA, BUT WAS FOUND ON 2 L. PT AND FAMILY EXPLAINED THAT WHEN NOT ON O2, PT BECOMES DIZZY AND IS PRONE TO FALLING AND/OR PASS OUT. PT IS ON 3 L OF O2 AT HOME AND USES A WALKER OR CANE TO MOVE ABOUT. EVEN THOUGH PT O2 SAT IS BETWEEN 98 AND 100%, PLEASE KEEP ON O2 FOR SAFETY REASONS.
[2022-10-06] MEDS ORDERED: INSULIN LANTUS 100 UNITS/ML 10 ML VIAL SUBQ SCH (21:30)
[2022-10-07] VITALS: BP 148/66
[2022-10-07] MEDS: ALBUTEROL SULFATE/IPRATROPIU 3 ML SOL IH SCH ×4 (00:56→19:41)
[2022-10-07 04:00] VITALS: BP 142/67
[2022-10-07] MEDS: ONDANSETRON 4 MG/2 ML VIAL IVP PRN (06:20)
[2022-10-07] MEDS: BLOOD GLUCOSE MONITORING 1 DEV DEV FS SCH ×4 (06:20→21:00)
[2022-10-07] MEDS: INSULIN LISPRO SLIDING SCALE 100 UNITS/ML VIAL SUBQ PRN ×3 (06:21→22:09)
--- NOTE | 2022-10-07 06:55 | NUR ---
PT IS STABLE. NO ACUTE EVENTS THROUGHOUT THE NIGHT. NO S/SX OF DISTRESS AT THIS MOMENT. ALL NEEDS MET. NO COMPLAINS OF PAIN AT THIS TIME.ALL PRECAUTIONS IN PLACE. CALL LIGHT WITHIN REACH. WILL ENDORSE TO DAY SHIFT RN.
--- NOTE | 2022-10-07 07:15 | NUR ---
RECEIVED REPORT FROM SEWAGE DISPOSAL ENGINEER NURSE GRISELDA FOR CONTINUITY OF CARE. PT STABLE AT THIS TIME.
[2022-10-07 07:18] LABS: BASOPHILS % (AUTO) 0.3 % (0.0-2.0); HEMATOCRIT 27.7 % (36-48); HEMOGLOBIN 8.7 g/dL (12.0-16.0); LYMPHOCYTES # (AUTO) 0.9 K/uL (2.5-16.5); LYMPHOCYTES % (AUTO) 6.9 % (20.5-51.1); MEAN CORPUSCULAR HEMOGLOBIN 23 pg (27-31); MEAN CORPUSCULAR HGB CONC 31 g/dL (33-37); MEAN CORPUSCULAR VOLUME 72.6 fL (80-94); MONOCYTES # (AUTO) 0.3 K/uL (0.8-1.0); MONOCYTES % (AUTO) 2.3 % (1.7-9.3); NEUTROPHILS # (AUTO) 11.7 K/uL (1.8-7.7); NEUTROPHILS % (AUTO) 90.5 % (42.2-75.2); PLATELET COUNT (AUTO) 369 K/uL (140-450); RED BLOOD CELL COUNT(AUTO) 3.81 MIL/uL (4.20-5.40); RED CELL DISTRIBUTION WIDTH 16.6 % (11.6-13.7); WHITE BLOOD COUNT (AUTO) 12.9 K/uL (4.8-10.8)
[2022-10-07 07:21] LABS: ANION GAP 14.8 (8-16); CARBON DIOXIDE 23.4 mmol/L (21-32); CREATININE 1.6 mg/dL (0.6-1.3); POTASSIUM 5.2 mmol/L (3.5-5.1)
[2022-10-07 07:27] LABS: MAGNESIUM 2.8 mg/dL (1.8-2.4); PHOSPHORUS 3.3 mg/dL (2.5-4.9)
[2022-10-07 08:00] VITALS: BP 148/61
[2022-10-07] MEDS: BUDESONIDE 0.5 MG/2 ML NEBU INH SCH ×2 (08:11→19:41)
[2022-10-07] MEDS ORDERED: SODIUM ZIRCONIUM CYCLOSILICATE 10 GM POWD.PACK PO SCH (08:35)
[2022-10-07] MEDS: DOCUSATE SODIUM 100 MG GELCAP PO SCH (09:00)
[2022-10-07] MEDS: DOXYCYCLINE 100 MG CAP PO SCH ×2 (09:05→21:31)
[2022-10-07] MEDS: methylPREDNISolone SS 40 MG/ML VIAL IVP SCH (09:05)
[2022-10-07 12:00] VITALS: BP 155/56
[2022-10-07] MEDS: IRON SUCROSE COMPLEX 100 MG/5 ML VIAL IVP SCH (12:24)
[2022-10-07] MEDS ORDERED: INSULIN LISPRO 100 UNITS/ML VIAL SUBQ SCH (12:30)
--- NOTE | 2022-10-07 15:29 | NUR ---
DISCHARGE PLANING PATIENT IS A 67-YEAR-OLD MALE ADMITTED ON 10/06/2022 FROM THE [facility]/ED DUE TO RF ENGINEER EXACERBATION. (PATIENT IS [place] SPEAKING ONLY). SW MET WITH PATIENT AND HER AT BEDSIDE TO DISCUSS AND GATHER HER COLLATERAL INFORMATION. PATIENT WAS AWAKE AND ALERT REPORTED LIVING AT HOME WITH HER , IN [facility]. PATIENT REPORTED THAT HER MAHNAZ [phone] IS HER EMERGENCY CONTACT AND MEDICAL DECISION MAKER. PATIENT STATED THAT SHE DO NOT HAVE ADVANCE DIRECTIVES AND WAS NOT INTERESTED ON THE A.D. INF. FORMS PROVIDED BY [facility]. PATIENT REPORTED NOT HAVING ANY ISSUES GETTING OR TAKING HER MEDICATIONS SEND OR [facility] IN [address] [place] [address]. [phone]. PATIENT STATED HAVING A WALKER, WHEELCHAIR AND 02 HER DME AT HOME. PATIENT REPORTED GOING TO FOLLOW UP WITH HER PCP DR. MELONY HOLLEY AFTER HER DISCHARGE. AND WILL MAKE HER OWN APPOINTMENT WITH IN 5-7 DAYS PATIENT DECLINED FOR SW TO MAKE HER APPOINTMENT. 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 SW THANK PATIENT FOR THE INF. PROVIDED AND LEFT THE ROOM. SW/CM WILL FOLLOW UP NEEDED.
[2022-10-07 16:00] VITALS: BP 148/51
[2022-10-07] MEDS ORDERED: INSULIN LANTUS 100 UNITS/ML 10 ML VIAL SUBQ SCH ×2 (16:00→21:00)
--- NOTE | 2022-10-07 19:00 | NUR ---
ENDORSED PT TO SOCIAL SERVICE WORKER NURSE ELZBIETA FOR CONTINUITY OF CARE. PT STABLE AT THIS TIME.
[2022-10-07 20:00] VITALS: BP 127/49
--- NOTE | 2022-10-07 23:03 | NUR ---
RT CALLED TO BEDSIDE TO ASSESS PT FOR DRYNESS. ADDED BUBBLE HUMIDIFIER TO PTS NASAL CANNULA. PT DISCUSSED THAT SHE IS SUFFERING FROM SHAKING AFTER THE DUO NEB. I STATED I WOULD CONTACT THE DR TO CHANGE THE PRESCRIPTION WITH LESS ADVERSE EFFECTS (XOPENEX) PT ALSO THAT SOMETIMES SHE WAKES UP IN THE MIDDLE OF THE NIGHT GASPING FOR BREATHE. DISCUSSED SLEEP APNEA WITH HER AND THAT SHE NEEDS TO CONSULT WITH HER PHYSICIAN.
[2022-10-08] VITALS: BP 163/71
[2022-10-08] MEDS: ONDANSETRON 4 MG/2 ML VIAL IVP PRN ×2 (00:23→08:41)
[2022-10-08] MEDS: ALBUTEROL SULFATE/IPRATROPIU 3 ML SOL IH SCH ×3 (01:00→14:30)
[2022-10-08 04:00] VITALS: BP 137/54
[2022-10-08] MEDS: INSULIN LISPRO SLIDING SCALE 100 UNITS/ML VIAL SUBQ PRN ×2 (06:09→16:41)
[2022-10-08] MEDS: BLOOD GLUCOSE MONITORING 1 DEV DEV FS SCH ×3 (06:15→16:36)
--- NOTE | 2022-10-08 07:05 | NUR ---
RECEIVED REPORT FROM DIRECTOR STRATEGY NURSE GRISELDA FOR CONTINUITY OF CARE. PT STABLE AT THIS TIME.
[2022-10-08 07:11] LABS: ANION GAP 11.9 (8-16); CARBON DIOXIDE 26.8 mmol/L (21-32); POTASSIUM 4.7 mmol/L (3.5-5.1)
[2022-10-08 07:16] LABS: MAGNESIUM 2.7 mg/dL (1.8-2.4); PHOSPHORUS 3.6 mg/dL (2.5-4.9)
[2022-10-08 07:23] LABS: BASOPHILS # (AUTO) 0.1 K/uL (0.00-0.22); BASOPHILS % (AUTO) 0.5 % (0.0-2.0); HEMATOCRIT 26.6 % (36-48); HEMOGLOBIN 8.3 g/dL (12.0-16.0); LYMPHOCYTES % (AUTO) 13.8 % (20.5-51.1); MEAN CORPUSCULAR HEMOGLOBIN 23 pg (27-31); MEAN CORPUSCULAR HGB CONC 31 g/dL (33-37); MEAN CORPUSCULAR VOLUME 72.4 fL (80-94); MONOCYTES # (AUTO) 1.4 K/uL (0.8-1.0); MONOCYTES % (AUTO) 10.1 % (1.7-9.3); NEUTROPHILS # (AUTO) 10.8 K/uL (1.8-7.7); NEUTROPHILS % (AUTO) 75.6 % (42.2-75.2); PLATELET COUNT (AUTO) 372 K/uL (140-450); RED BLOOD CELL COUNT(AUTO) 3.67 MIL/uL (4.20-5.40); RED CELL DISTRIBUTION WIDTH 16.3 % (11.6-13.7); WHITE BLOOD COUNT (AUTO) 14.3 K/uL (4.8-10.8)
[2022-10-08 08:00] VITALS: BP 118/55
[2022-10-08] MEDS: BUDESONIDE 0.5 MG/2 ML NEBU INH SCH ×2 (08:00→14:30)
--- NOTE | 2022-10-08 08:00 | NUR ---
PATIENT REFUSED TX. NO DISTRESS, NOTED PT SLEEPING COMFORTABLY. WILL CONT TO MONITOR.
[2022-10-08] MEDS: methylPREDNISolone SS 40 MG/ML VIAL IVP SCH (08:41)
[2022-10-08] MEDS: DOCUSATE SODIUM 100 MG GELCAP PO SCH (08:42)
[2022-10-08] MEDS: DOXYCYCLINE 100 MG CAP PO SCH (08:42)
[2022-10-08] MEDS: INSULIN LISPRO 100 UNITS/ML VIAL SUBQ SCH ×2 (11:30→16:30)
[2022-10-08 12:00] VITALS: BP 149/57
[2022-10-08] MEDS: IRON SUCROSE COMPLEX 100 MG/5 ML VIAL IVP SCH (12:00)
[2022-10-08] MEDS ORDERED: DOXY-745 PO (14:09)
[2022-10-08] MEDS ORDERED: LANTUS SUBQ (14:09)
[2022-10-08] MEDS ORDERED: PRED20TA5 PO (14:11)
[2022-10-08 16:00] VITALS: BP 147/53
--- NOTE | 2022-10-08 16:42 | NUR ---
ASSESS PTS BS OF 352. PT HAS SCHEDULED DOSE OF 5U HUMALOG AND SLIDING SCALE. I WILL BE ADMINISTERING 10 UNITS; 5 FROM SLIDING SCALE 5 REPRESENTING THE SCHEDULED DOSE. IT IS CHARTED UNDER THE SLIDING SCALE MEDICATION.
[2022-10-08 17:05] VITALS: BP 147/53
--- NOTE | 2022-10-08 17:13 | NUR ---
PT REFUSED TREATMENTS , PT NOT IN DISTRESS, SLEEPING COMFORTABLE ON 3L NC AND FAMILY MEMBER @ BEDSIDE SRT AH
== END 2022-10-08 18:03 | disposition home or self-care (01) | DRG 871 ==
LOC: MED 00:40 → MTU 05:06
PROVIDERS: ADMIT Internal Medicine; ATTEND Internal Medicine
DX: A41.9 Sepsis, unspecified organism (principal); J96.20 Acute and chronic respiratory failure, unspecified whether with hypoxia or hypercapnia; J44.1 Chronic obstructive pulmonary disease with (acute) exacerbation; E87.1 Hypo-osmolality and hyponatremia; N17.9 Acute kidney failure, unspecified; I13.0 Hypertensive heart and chronic kidney disease with heart failure and stage 1 through stage 4 chronic kidney disease, or unspecified chronic kidney disease; I50.30 Unspecified diastolic (congestive) heart failure; N39.0 Urinary tract infection, site not specified; J96.11 Chronic respiratory failure with hypoxia; E87.5 Hyperkalemia; E11.22 Type 2 diabetes mellitus with diabetic chronic kidney disease; N18.9 Chronic kidney disease, unspecified; Z20.822 Contact with and (suspected) exposure to COVID-19; I25.10 Atherosclerotic heart disease of native coronary artery without angina pectoris; E78.00 Pure hypercholesterolemia, unspecified; D64.9 Anemia, unspecified; K21.9 Gastro-esophageal reflux disease without esophagitis; Z88.5 Allergy status to narcotic agent; Z88.0 Allergy status to penicillin; Z79.4 Long term (current) use of insulin; Z88.8 Allergy status to other drugs, medicaments and biological substances; Z88.1 Allergy status to other antibiotic agents; Z91.041 Radiographic dye allergy status
CPT/HCPCS: 36415; 71045; 76770; 80048; 80053; 81001; 82043; 82728; 82948; 83036; 83540; 83605; 83735; 83880; 84100; 85025; 87040; 87081; 93005; 94640; 96365; 96375; 99285; J0360; J0456; J0696; J1644; J1756; J1815; J2405; J2920; J3475; J7060; J7613; J7626; Q0092

== ENCOUNTER 2023-04-06 12:29 | Emergency (ER) | payer MEDICARE, OTHER ==
[~2023-04-06] VITALS: Ht 157.5 cm; Wt 77.1 kg
[~2023-04-06 12:29] MED LIST changes: +DOXY-745 PO; -FURO-570 PO; -INSU100I7 SQ; +INSU100S45 SUBQ; +LANTUS SUBQ; -LORA10TA19 PO; +PANT40EC PO; +PRED20TA5 PO
[2023-04-06 12:51] VITALS: BP 184/77; PULSE 98; RESP 20; TEMP 97.4; O2SAT 95
[2023-04-06 13:34] LABS: BASOPHILS # (AUTO) 0.1 K/uL (0.00-0.22); BASOPHILS % (AUTO) 0.3 % (0.0-2.0); HEMATOCRIT 31.7 % (36-48); HEMOGLOBIN 9.7 g/dL (12.0-16.0); LYMPHOCYTES # (AUTO) 0.8 K/uL (2.5-16.5); LYMPHOCYTES % (AUTO) 3.8 % (20.5-51.1); MEAN CORPUSCULAR HEMOGLOBIN 23 pg (27-31); MEAN CORPUSCULAR HGB CONC 31 g/dL (33-37); MEAN CORPUSCULAR VOLUME 75.7 fL (80-94); MONOCYTES # (AUTO) 0.5 K/uL (0.8-1.0); MONOCYTES % (AUTO) 2.4 % (1.7-9.3); NEUTROPHILS # (AUTO) 19.1 K/uL (1.8-7.7); NEUTROPHILS % (AUTO) 93.5 % (42.2-75.2); PLATELET COUNT (AUTO) 349 K/uL (140-450); RED BLOOD CELL COUNT(AUTO) 4.19 MIL/uL (4.20-5.40); RED CELL DISTRIBUTION WIDTH 16.5 % (11.6-13.7); WHITE BLOOD COUNT (AUTO) 20.4 K/uL (4.8-10.8)
[2023-04-06 14:05] LABS: LIPASE 79 U/L (73-393)
[2023-04-06 14:20] LABS: ANION GAP 12.1 (8-16); CARBON DIOXIDE 25.8 mmol/L (21-32); CREATININE 1.6 mg/dL (0.6-1.3); POTASSIUM 4.9 mmol/L (3.5-5.1); TOTAL BILIRUBIN 0.3 mg/dL (0.0-1.0)
[2023-04-06] MEDS ORDERED: NACL 0.9% 1,000 ML IV ONE (14:55)
[2023-04-06] MEDS ORDERED: ACETAMINOPHEN EXTRA STRENGTH 500 MG TAB PO ONE (14:55)
[2023-04-06] MEDS ORDERED: ONDANSETRON 4 MG/2 ML VIAL IVP ONE (14:55)
--- NOTE | 2023-04-06 16:23 | NUR ---
PT ASSISTED IN WALKER TO BED 09
[2023-04-06] MEDS ORDERED: INSULIN REGULAR, HUMAN 100 UNIT/ML VIAL SUBQ ONE (16:35)
[2023-04-06] MEDS ORDERED: ONDANSETRON 4 MG/2 ML VIAL ONE (16:43)
[2023-04-06] MEDS ORDERED: ACETAMINOPHEN EXTRA STRENGTH 500 MG TAB ONE (16:44)
--- NOTE | 2023-04-06 17:01 | NUR ---
PT BS 439, MEDICATED WITH ORDERED INSULIN, AWARE.
[2023-04-06 17:19] LABS: APPEARANCE,URINE CLEAR (CLEAR); BILIRUBIN,URINE NEGATIVE (NEGATIVE); BLOOD, URINE TRACE-I (NEGATIVE); COLOR,URINE YELLOW (YELLOW); LEUKOCYTE ESTERASE ,URINE NEGATIVE (NEGATIVE); NITRITE, URINE NEGATIVE (NEGATIVE); PH,URINE 6.5 (5.0-9.0); UGLUCOSE 3+ (NEGATIVE)
[2023-04-06 17:27] LABS: YEAST,URINE None Seen /HPF (None Seen)
--- NOTE | 2023-04-06 18:11 | NUR ---
PT TAKEN TO BATHROOM VIA WHEELCHAIR
--- NOTE | 2023-04-06 18:20 | NUR ---
NOTIFIED OF BLOOD SUGAR 283. ORDERED PO CHALLENGE
--- NOTE | 2023-04-06 19:02 | NUR ---
PT ABLE TO EAT JELLO AND DRANK HALF CUP OF WATER. PT STATED HER STOMACH FEELS BETTER. DENIES NAUSEA AT THIS TIME.
[2023-04-06] MEDS ORDERED: ONDA-188 PO (19:11)
[2023-04-06] MEDS ORDERED: ACET-10509 PO (19:11)
[2023-04-06] MEDS ORDERED: CEPH-588 PO (19:11)
--- NOTE | 2023-04-06 19:11 | NUR ---
Pt report given to SUMAN REYNOSO. Transfer of care at this time.
[2023-04-06 19:31] VITALS: BP 169/69; PULSE 73; RESP 12; TEMP 97.4; O2SAT 100
--- NOTE | 2023-04-06 19:38 | NUR ---
Patient discharged. Written and verbal after care instructions given and explained. New Rx given : Tylenol, Cephalexin and Zofran. Patient verbalized understanding. Ambulatory with walker. All questions addressed prior to discharge. Advised to follow up with PMD.
== END 2023-04-06 19:38 | disposition home or self-care (01) ==
LOC: MED 12:29
DX: N39.0 Urinary tract infection, site not specified (principal); D72.829 Elevated white blood cell count, unspecified; E11.65 Type 2 diabetes mellitus with hyperglycemia; R11.2 Nausea with vomiting, unspecified; J45.909 Unspecified asthma, uncomplicated; I11.0 Hypertensive heart disease with heart failure; I50.9 Heart failure, unspecified; I25.10 Atherosclerotic heart disease of native coronary artery without angina pectoris; J44.9 Chronic obstructive pulmonary disease, unspecified; K21.9 Gastro-esophageal reflux disease without esophagitis; E03.9 Hypothyroidism, unspecified; E78.5 Hyperlipidemia, unspecified; Z90.49 Acquired absence of other specified parts of digestive tract; Z90.710 Acquired absence of both cervix and uterus; Z79.899 Other long term (current) drug therapy; Z79.2 Long term (current) use of antibiotics; Z79.4 Long term (current) use of insulin; Z88.0 Allergy status to penicillin; Z88.8 Allergy status to other drugs, medicaments and biological substances; Z88.1 Allergy status to other antibiotic agents; Z88.5 Allergy status to narcotic agent
CPT/HCPCS: 36415; 71045; 74176; 80053; 81001; 83605; 83690; 83880; 84484; 85025; 87040; 87086; 93005; 96361; 96372; 96374; 99285; J1815; J2405; J7030; 82948

== ENCOUNTER 2023-05-29 16:53 | Emergency (ER) | payer MEDICARE, OTHER ==
[~2023-05-29] VITALS: Ht 157.5 cm; Wt 79.4 kg
[~2023-05-29 16:53] MED LIST changes: +ACET-10509 PO; +CEPH-588 PO; +ONDA-188 PO
[2023-05-29 16:59] VITALS: BP 193/79; PULSE 9; RESP 18; TEMP 98.4; O2SAT 99
[2023-05-29 18:34] VITALS: BP 198/78; PULSE 90; RESP 14; TEMP 98.4; O2SAT 99
== END 2023-05-29 18:35 | disposition home or self-care (01) ==
LOC: MED 16:53
DX: R09.89 Other specified symptoms and signs involving the circulatory and respiratory systems (principal); T17.298A Other foreign object in pharynx causing other injury, initial encounter; J44.9 Chronic obstructive pulmonary disease, unspecified; J45.909 Unspecified asthma, uncomplicated; K21.9 Gastro-esophageal reflux disease without esophagitis; I11.9 Hypertensive heart disease without heart failure; E11.9 Type 2 diabetes mellitus without complications; Z88.5 Allergy status to narcotic agent; Z88.0 Allergy status to penicillin; Z91.040 Latex allergy status; Z79.1 Long term (current) use of non-steroidal anti-inflammatories (NSAID); Z79.899 Other long term (current) drug therapy
CPT/HCPCS: 70490; 99284

== ENCOUNTER 2023-10-12 05:10 | Emergency (ER) | payer MEDICARE, OTHER ==
[~2023-10-12] VITALS: Ht 157.5 cm; Wt 77.1 kg
[2023-10-12 06:22] VITALS: BP 112/53; PULSE 88; RESP 20; TEMP 98.1; O2SAT 100
[2023-10-12] MEDS ORDERED: KETOROLAC 30 MG/ML VIAL IM ONE (07:05)
[2023-10-12] MEDS ORDERED: ONDANSETRON 4 MG ODT PO ONE (07:05)
[2023-10-12] MEDS ORDERED: ACETAMINOPHEN 325 MG TAB PO ONE (07:05)
[2023-10-12 07:21] LABS: BASOPHILS # (AUTO) 0.1 K/uL (0.00-0.22); BASOPHILS % (AUTO) 0.5 % (0.0-2.0); EOSINOPHILS # (AUTO) 0.2 K/uL (0-0.4); EOSINOPHILS % (AUTO) 1.8 % (0.0-4.0); HEMATOCRIT 32.8 % (36-48); HEMOGLOBIN 10.4 g/dL (12.0-16.0); LYMPHOCYTES # (AUTO) 1.7 K/uL (2.5-16.5); LYMPHOCYTES % (AUTO) 12.6 % (20.5-51.1); MEAN CORPUSCULAR HEMOGLOBIN 25 pg (27-31); MEAN CORPUSCULAR HGB CONC 32 g/dL (33-37); MEAN CORPUSCULAR VOLUME 77.2 fL (80-94); MONOCYTES # (AUTO) 0.7 K/uL (0.8-1.0); MONOCYTES % (AUTO) 5.6 % (1.7-9.3); NEUTROPHILS # (AUTO) 10.5 K/uL (1.8-7.7); NEUTROPHILS % (AUTO) 79.5 % (42.2-75.2); PLATELET COUNT (AUTO) 333 K/uL (140-450); RED BLOOD CELL COUNT(AUTO) 4.25 MIL/uL (4.20-5.40); RED CELL DISTRIBUTION WIDTH 16.3 % (11.6-13.7); WHITE BLOOD COUNT (AUTO) 13.2 K/uL (4.8-10.8)
[2023-10-12 07:35] LABS: ANION GAP 11.9 (8-16); CALCIUM 8.4 mg/dL (8.5-10.1); CARBON DIOXIDE 24.4 mmol/L (21-32); POTASSIUM 5.3 mmol/L (3.5-5.1)
[2023-10-12 07:41] LABS: ALANINE AMINOTRANSFERASE 18 U/L (12-78); ALBUMIN 2.6 g/dL (3.4-5.0); ALKALINE PHOSPHATASE 215 U/L (50-136); ASPARTATE AMINOTRANSFERASE 16 U/L (15-37); BILIRUBIN,DIRECT 0.1 mg/dL (0.0-0.3); LIPASE 31 U/L (16-77); TOTAL BILIRUBIN 0.2 mg/dL (0.0-1.0); TOTAL PROTEIN, SERUM 8.3 g/dL (6.4-8.2)
[2023-10-12] MEDS ORDERED: ONDANSETRON 4 MG ODT ONE (09:23)
[2023-10-12] MEDS ORDERED: KETOROLAC 30 MG/ML VIAL ONE (09:23)
[2023-10-12] MEDS ORDERED: ACETAMINOPHEN 325 MG TAB ONE (09:24)
[2023-10-12 09:36] LABS: APPEARANCE,URINE CLEAR (CLEAR); BILIRUBIN,URINE NEGATIVE (NEGATIVE); BLOOD, URINE TRACE-I (NEGATIVE); COLOR,URINE YELLOW (YELLOW); LEUKOCYTE ESTERASE ,URINE 1+ (NEGATIVE); NITRITE, URINE NEGATIVE (NEGATIVE); PROTEIN,URINE 2+ (NEGATIVE); UGLUCOSE 3+ (NEGATIVE); UROBILINOGEN,URINE 0.2 EU/dL (0.2 - 1)
[2023-10-12 09:38] LABS: RBC,URINE 0-5 /HPF (0-5)
[2023-10-12 09:39] LABS: BACTERIA,URINE 2+ /HPF (None Seen); MUCUS,URINE None Seen /LPF (None Seen); SQUAMOUS EPITHELIAL CELL,UR 0-3 (FEW) /LPF (0-3 (FEW))
[2023-10-12] MEDS ORDERED: MIRABULK PO (10:04)
[2023-10-12] MEDS ORDERED: ACET-9525 PO (10:04)
[2023-10-12] MEDS ORDERED: CEPH-588 PO (10:04)
[2023-10-12] MEDS ORDERED: DICL20GE TP (10:04)
[2023-10-12] MEDS ORDERED: OMEP40EC23 PO (10:04)
[2023-10-12 12:40] VITALS: BP 112/53; PULSE 88; RESP 20; TEMP 98.1; O2SAT 100
== END 2023-10-12 12:00 | disposition home or self-care (01) ==
LOC: MED 05:10
DX: S32.038A Other fracture of third lumbar vertebra, initial encounter for closed fracture (principal); N39.0 Urinary tract infection, site not specified; K29.70 Gastritis, unspecified, without bleeding; K59.00 Constipation, unspecified; K43.9 Ventral hernia without obstruction or gangrene; J44.9 Chronic obstructive pulmonary disease, unspecified; I25.10 Atherosclerotic heart disease of native coronary artery without angina pectoris; I11.0 Hypertensive heart disease with heart failure; I50.9 Heart failure, unspecified; E11.9 Type 2 diabetes mellitus without complications; K21.9 Gastro-esophageal reflux disease without esophagitis; E78.5 Hyperlipidemia, unspecified; E03.9 Hypothyroidism, unspecified; Z79.899 Other long term (current) drug therapy; Z79.2 Long term (current) use of antibiotics; Z79.4 Long term (current) use of insulin; Z88.0 Allergy status to penicillin; Z88.8 Allergy status to other drugs, medicaments and biological substances; Z88.1 Allergy status to other antibiotic agents; Z88.4 Allergy status to anesthetic agent; Z88.5 Allergy status to narcotic agent; X58.XXXA Exposure to other specified factors, initial encounter; Y92.89 Other specified places as the place of occurrence of the external cause; Y93.89 Activity, other specified; Y99.8 Other external cause status
CPT/HCPCS: 36415; 71045; 74176; 80048; 80076; 81001; 83690; 84484; 85025; 87086; 93005; 96372; 99285; J1885; Q0162

== ENCOUNTER 2023-11-30 18:45 | Emergency (ER) | payer MEDICARE, OTHER ==
[~2023-11-30] VITALS: Ht 157.5 cm; Wt 74.8 kg
[~2023-11-30 18:45] MED LIST changes: +ACET-9525 PO; +DICL20GE TP; +MIRABULK PO; +OMEP40EC23 PO
[2023-11-30 18:55] VITALS: BP 124/60; PULSE 80; RESP 17; TEMP 97.6; O2SAT 100
[2023-12-01] MEDS ORDERED: CYCL-711 PO (00:21)
[2023-12-01] MEDS ORDERED: ACET-8905 PO (00:21)
[2023-12-01] MEDS ORDERED: IBUP-2213 PO (00:21)
[2023-12-01] MEDS: KETOROLAC 30 MG/ML VIAL IM ONE (00:36)
[2023-12-01] MEDS: HYDROcodone/APAP 5/325 MG 1 TAB TAB PO ONE (00:37)
== END 2023-12-01 00:48 | disposition home or self-care (01) ==
LOC: MED 18:45
DX: S83.8X2A Sprain of other specified parts of left knee, initial encounter (principal); S73.192A Other sprain of left hip, initial encounter; S32.028A Other fracture of second lumbar vertebra, initial encounter for closed fracture; S32.038A Other fracture of third lumbar vertebra, initial encounter for closed fracture; J45.909 Unspecified asthma, uncomplicated; I11.0 Hypertensive heart disease with heart failure; J44.9 Chronic obstructive pulmonary disease, unspecified; K21.9 Gastro-esophageal reflux disease without esophagitis; Z88.0 Allergy status to penicillin; Z88.5 Allergy status to narcotic agent; Z79.1 Long term (current) use of non-steroidal anti-inflammatories (NSAID); Z88.8 Allergy status to other drugs, medicaments and biological substances; Z79.899 Other long term (current) drug therapy; W01.198A Fall on same level from slipping, tripping and stumbling with subsequent striking against other object, initial encounter; Y93.89 Activity, other specified; Y92.89 Other specified places as the place of occurrence of the external cause; Y99.8 Other external cause status
CPT/HCPCS: 29505; 72131; 73552; 73562; 74176; 96372; 99285; J1885